=== PATIENT | female | born 1985 | race Caucasian/White ===

== ENCOUNTER 2018-12-04 19:53 | Inpatient (IN) | payer SELFPAY ==
[2018-12-04] MEDS ORDERED: Ondansetron INJ* 2 MG/ML VIAL IV PRN (20:22)
[2018-12-04] MEDS ORDERED: Morphine INJ* 2 MG/ML 1 ML SYRINGE (TWO MG - NEW SYRINGE VERSION) IV PRN (20:22)
[2018-12-04] MEDS ORDERED: diPHENhydraMINE IV* 50 MG/ML 1 ml VIAL (BENADRYL) IV ONE (22:00)
[2018-12-04] MEDS ORDERED: LORazepam INJ* 2 MG/ML 1 ML VIAL IV PUSH PRN (22:10)
[2018-12-04] MEDS ORDERED: Lorazepam PYXIS KEY PRN (22:10)
[2018-12-04 22:37] LABS: ABS Basophils 0.1 10^3/ul (0-0.2); ABS Lymphocytes 2.5 10^3/ul (1.0-4.8); ABS Monocytes 0.9 10^3/ul (0-0.8); Eosinophil % 0.2 %; Hematocrit 37 % (35-47); Hemoglobin 12.5 g/dL (12.0-16.0); Lymphocyte % 21.4 %; Mean Corpuscular HGB Conc 34 g/dL (31-36); Mean Corpuscular Hemoglobin 31 pg (27-31); Mean Corpuscular Volume 91 fL (80-97); Mean Platelet Volume 8.2 fL (7.4-10.4); Platelet Count 279 10^3/uL (150-450); Red Blood Count 4.08 10^6 /uL (3.70-4.87); Red Cell Distribution Width 13 % (10-15); White Blood Count 11.5 10^3/uL (3.5-10.8)
[2018-12-04 22:53] LABS: Albumin 4.3 g/dL (3.2-5.2); Albumin/Globulin Ratio 1.8 (1-3); BUN/Creatinine Ratio 11.1 (8-20); EGFR African American 133.4 (>60); EGFR Non-African American 110.2 (>60); Globulin 2.4 g/dL (2-4); Magnesium 1.7 mg/dL (1.9-2.7); Potassium 3.2 mmol/L (3.5-5.0); Total Bilirubin 1.1 mg/dL (0.2-1.0); Total Protein 6.7 g/dL (6.4-8.9)
[2018-12-04] MEDS: D5W 1/2 NS KCl 20 Meq 1000 ML* 1,000 ML IV SCH (23:02)
[2018-12-04] MEDS: PROMETHAZINE 25 MG PR PRN (23:02)
[2018-12-04 23:36] LABS: TSH (Thyroid Stimulating Horm) 0.94 mcIU/mL (0.34-5.60)
--- NOTE | 2018-12-05 01:21 | HP ---
HISTORY AND PHYSICAL: DATE OF ADMISSION: 12/04/18 PROVIDER: Carol Can NP PRIMARY CARE PROVIDER: None (The patient recently moved here from [place] yesterday). ATTENDING PHYSICIAN WHILE IN THE HOSPITAL: Dr. Temi Theodore* (dictated by Carol Can NP). CHIEF COMPLAINT: Abdominal pain and vomiting. HISTORY OF PRESENT ILLNESS: Ms. Eisenberg is a 33-year-old female with a past medical history significant for Sergio-Danlos, chronic fatigue, chronic pain syndrome, SMA, gastroparesis, endometriosis, pots syndrome, nonepileptic seizures, bradycardia, and history of pulmonary embolism, who initially presented to [facility] with complaints of vomiting. She reports that approximately 10 days ago she started having vomiting, proceeds to report that the patient travels up here from [place], [place]. The reports that they stopped in [place] and had some food, which both had some gastrointestinal illness. The does report that he recovered, but the patient was unable to recover and reports that she was vomiting every half hour while driving here to [place]. She reports that on 12/01/18 she was admitted to a hospital in [place], [place] from 12/01/18 to 12/03/18 with complaints of vomiting. She reports that she was discharged with viral gastroenteritis. At that time, there was concern of colitis. The patient and reported the patient did receive antibiotics while in the hospital. The patient reports that she was able to tolerate clear liquids, but never tried any solid foods and she was discharged on 12/03/18. They continued to travel. They traveled up to [place]. The patient started with vomiting last night. She did attempt to eat some solid foods, but was unable to tolerate it. So, she presented to [place] ER for further evaluation. While at [place], they did lab work. She was found to have hypokalemia and dehydration and concern for a partial bowel obstruction. So, [facility] was contacted for a transfer. They did speak to Dr. Painting who stated he would see the patient in consultation if the patient was accepted for admission here at [facility]. The patient does report fevers on and off. She does report nausea, vomiting and abdominal pain. Denies any blood in the vomit. Denies any black or tarry stools. She denies any chest pain or shortness of breath. She denies any urinary frequency, urgency or pain with urination. She denies any dizziness or lightheadedness. Due to the patient's vomiting and possible bowel obstruction, Hospital Medicine was asked to see in consult for admission. While at [facility], the patient did have an NG tube placed with multiple repeat x-rays showing coiling of the NG tube. Ultimately, the NG tube is removed. The patient is refusing to have further NG tube placement. PAST MEDICAL HISTORY: Significant for: 1. Sergio-Danlos. 2. Chronic fatigue. 3. Chronic pain. 4. SMA. 5. Gastroparesis. 6. Endometriosis. 7. POTS syndrome. 8. History of PE. 9. Nonepileptic seizures. 10. Bradycardia. PAST SURGICAL HISTORY: 1. Right shoulder repair due to dislocation, right hip repair, right knee, right foot. 2. Hysterectomy. 3. Cholecystectomy. 4. Appendectomy. 5. Stomach surgery. 6. Duodenojejunostomy for SMA. 7. Pacemaker in December 2017 due to bradycardia from POTS syndrome. 8. Mediport placement. HOME MEDICATIONS: 1. Tizanidine 8 mg p.o. t.i.d. 2. Promethazine 12.5 mg p.o. q.6 hours as needed for nausea. 3. Montelukast 1 tab p.o. at bedtime. 4. Hydroxyzine 25 mg p.o. 4 times a day. 5. Gabapentin 900 mg p.o. t.i.d. 6. Dextroamphetamine sulfate ER 20 mg p.o. t.i.d. 7. Klonopin 1 mg p.o. 4 times a day. 8. Albuterol/acetaminophen 25/325 1 to 2 tablets every 4 hours as needed for headache. ALLERGIES: 1. AMOXICILLIN. 2. CEFTRIAXONE. 3. CIPROFLOXACIN. 4. EGGS. 5. LEVOTHYROXINE. 6. REGLAN. 7. PENICILLIN. 8. PREDNISONE. FAMILY HISTORY: No reported history of coronary artery disease, diabetes or cancer. SOCIAL HISTORY: Denies any smoking, illicit drug use or alcohol use. She is . She lives with her . Surrogate decision maker in the event she is unable to make her own decisions is her Erick. She is a full code. REVIEW OF SYSTEMS: An 11-point review of systems was completed. All pertinent positives were mentioned in the HPI, otherwise were negative. PHYSICAL EXAMINATION GENERAL: At this time, Ms. Eisenberg is alert and oriented resting in bed in her room. She does not appear to be in any acute distress. VITAL SIGNS: Temp 100.0, Blood pressure 144/97, Heart rate 85, Respirations 20. o2 saturation 100. HEENT: Head is atraumatic, normocephalic. Eyes: EOMs are intact. Pupils are 5 mm and reactive to light. Oral mucosa is dry. NECK: Supple. LUNGS: Clear to auscultation bilaterally. No wheezes, rales, or rhonchi. CARDIAC: S1, S2. Regular rate and rhythm. No murmurs, rubs, or gallops. ABDOMEN: Soft, flat. She does have diffuse tenderness noted to the entire abdomen. Bowel sounds are present x4 and active. EXTREMITIES: Pedal pulses are +2 bilaterally. She is able to move all 4 extremities with 5/5 strength. There is no clubbing or cyanosis. NEUROLOGIC: She is awake, alert, oriented x3. Speech is clear. Thought process is intact. There is no gross focal deficit. SKIN: Intact. DIAGNOSTIC STUDIES/LAB DATA: Pending. She did have a CT at [place] that showed partial obstruction. We are in the process of getting full dictated report from [place] at this time. ASSESSMENT AND PLAN: Ms. Eisenberg is a 33-year-old female with past medical history significant for Sergio-Danlos, chronic fatigue, chronic pain, SMA, gastroparesis, endometriosis, POTS syndrome, nonepileptic seizures, bradycardia , history of pulmonary embolism, who initially presented to [facility] with complaints of vomiting and abdominal pain. She was found to have bowel obstruction, so she was transferred to [facility] for evaluation by Surgery. She will be admitted inpatient for: 1. Nausea and vomiting. I suspect her nausea and vomiting as related to underlying partial bowel obstruction. She did have an NG placed at [place] with multiple attempts for correct placement, which was unsuccessful and NG was removed. The patient is refusing further NG tube placement at this time. She will be seen in consultation by Surgery. Dr. Painting was contacted by [facility] and accepted consultation. She will be n.p.o., I will place her on IV fluids, and we will monitor overnight. The patient can have Phenergan 12.5 mg suppository q.6 hours as needed for nausea or vomiting as she reports this works better for her and that Zofran does not work for her. 2. History of nonepileptic seizures. The patient does take Klonopin at home. Given the patients n.p.o. status, I will place her on Ativan 0.5 mg IV q.6 hours as needed. 3. Chronic pain syndrome. The patient currently takes tizanidine and gabapentin. I am going to hold this due to her n.p.o. status at this time. We will give her morphine 2 mg every 4 hours as needed for pain. 4. History of bradycardia. The patient does have a pacemaker and continue to monitor. 5. FEN. She is n.p.o. 6. DVT prophylaxis. I will place her on SCDs. 7. Code status. She is a full code. TIME SPENT: Time spent on this admission was approximately 60 minutes, greater than half that time was spent at the bedside reviewing events leading thus far to her hospitalization, performing physical exam, and reviewing my plan of care. I have discussed this with my attending Dr. Temi Theodore; she is in agreement with my plan. CAROL CAN, DIONISIO [id number]/[facility] #: [id number] DANNIE
[2018-12-05] MEDS: Morphine 4 MG/ML VIAL (1 ml) 4 MG/ML VIAL IV PRN ×4 (03:14→19:40)
[2018-12-05] MEDS: D5W 1/2 NS KCl 20 Meq 1000 ML* 1,000 ML IV SCH ×2 (07:37→17:41)
[2018-12-05] MEDS ORDERED: diPHENhydraMINE IV* 50 MG/ML 1 ml VIAL (BENADRYL) IV ONE (09:23)
--- NOTE | 2018-12-05 12:37 | CONS ---
CONSULTATION REPORT: DATE OF CONSULT: 12/05/18 REFERRING PROVIDER: Dr. Temi Theodore, hospitalist.. REASON FOR CONSULTATION: Nausea, vomiting and abdominal pain. HISTORY OF PRESENT ILLNESS: Ms. Luda Eisenberg is a 33-year-old female with a complicated past medical history, who until about 2 weeks ago lived in the [place], [place] area. She is moving to [place] for family reasons. She has surgical history significant for superior mesenteric artery compression syndrome and according to her, she underwent a laparoscopic duodenal jejunostomy at [facility] 2 years ago for treatment of this issue. She had done well until about 2 weeks ago and she feels that she became ill with some nausea and dry heaves with occasional vomiting. She has had no diarrhea. She has chronic pain syndrome, but does not necessarily have abdominal discomfort that she has been having over the past several weeks. She said she has had some unintentional weight loss since October. She has had no blood per rectum or melena. While driving up from [place], she did apparently stop and was admitted in a hospital in [place], [place] for several days and told that she may have had a colitis, but was discharged and presented to [facility] yesterday with the above complaints. A CT scan was done in [place]. I did review these images. This was done without IV contrast due to IV contrast allergy. Oral contrast apparently was administered and there was only a small amount noted in the stomach. This study showed a dilated stomach and proximal duodenum with dilation of the apparent previous duodenojejunostomy anastomosis with some mild dilation in the proximal small bowel. There was significant amount of air beyond this area. There is no obvious evidence of small bowel obstruction. There is a large amount of stool throughout the colon and there is quite a bit of air as well throughout the colon. There is no free intraabdominal fluid. It is a difficult study to read due to the fact that there is no oral or IV contrast and she is quite slender. She was transferred to the emergency room here at [facility] for further care. She had been admitted to Medical Service and started on IV fluids and kept n.p.o. at this point. Past medical history is also significant for gastroparesis, endometriosis, Sergio- Danlos syndrome, chronic fatigue and chronic pain syndrome. She also has had a pacemaker placed for POTS syndrome. She describes nonepileptic seizures and a history of pulmonary embolism as well. PAST MEDICAL HISTORY: 1. Sergio-Danlos. 2. Chronic fatigue and chronic pain syndrome. 3. SMA compression syndrome, treated as above. 4. Gastroparesis. 5. Endometriosis. 6. POTS syndrome. 7. History of pulmonary embolism. 8. Nonepileptic seizures. 9. Bradycardia. PAST SURGICAL HISTORY: 1. Right shoulder surgery. 2. Hysterectomy. 3. Laparoscopic cholecystectomy. 4. Laparoscopic appendectomy. 5. Laparoscopic duodenojejunostomy for SMA compression syndrome. 6. Pacemaker insertion. 7. Mediport placement, presently in place. MEDICATIONS: Include: 1. Tizanidine. 2. Promethazine. 3. Montelukast. 4. Hydroxyzine. 5. Gabapentin. 6. Dextroamphetamine. 7. Klonopin. 8. Albuterol. ALLERGIES: 1. AMOXICILLIN. 2. CEFTRIAXONE. 3. CIPRO. 4. EGGS. 5. LEVOTHYROXINE. 6. REGLAN. 7. PENICILLIN. 8. PREDNISONE. SOCIAL HISTORY: She denies any smoking, illicit drug use or alcohol. She is . She lives with her . She is presently not working, is applying for disability. Her is her surrogate decision maker. She is a full code. REVIEW OF SYSTEMS: A 11-point review of systems was complete. All pertinent positives were mentioned in the above HPI, otherwise negative. PHYSICAL EXAM: Temperature 98.2, pulse 81, blood pressure 156/94. In general, she is a slender female, appears to be in no apparent distress. She is quite alert, conversive and very pleasant. Her lungs are clear to auscultation with normal respiratory effort. Heart has regular rate and rhythm without murmurs, rubs, or gallops. Her abdomen is soft and nondistended. She has normoactive bowel sounds throughout. She has some mild tenderness throughout with no rebound, guarding, rigidity or peritoneal irritation. I appreciate no hernias. Psychiatric: She is awake, alert and oriented x3. She has normal judgment and insight. DIAGNOSTIC STUDIES/LAB DATA: Laboratory workup included white blood cell count this morning of 11.5. Electrolytes and BUN and creatinine were unremarkable other than a potassium of 3.2. She has a total bilirubin of 1.1, but liver transaminases were unremarkable. She has an albumin level of 4.3. IMPRESSION: Abdominal pain with nausea and vomiting in a complicated patient who has had multiple intraabdominal surgeries including a laparoscopic duodenal jejunostomy at [facility] several years ago for superior mesenteric artery compression syndrome. She says that since that time, she has been doing well over the past several weeks, has had vomiting, which may have been due to the gastroparesis. On the CT scan, I see no evidence of a small bowel obstruction, other acute findings, although she does have a dilated stomach. It is a study difficult to evaluate due to the lack of IV and oral contrast, however. I agree at present with the admission for IV hydration and correction of her potassium and electrolytes. She has been n.p.o. for now. I would recommend a Gastroenterology consult for further evaluation of her gastroparesis. An upper GI may be warranted if this could be performed this weekend to evaluate her gastric emptying as well as the patency of the duodenojejunostomy and address any further distal obstruction in the small bowel ; however, I do not feel she has a bowel obstruction or other acute surgical condition. There are no surgical interventions indicated at this point, and I will follow her closely and discuss her care with the primary service. [id number]/[facility] #: [id number] DANNIE
[2018-12-05] MEDS ORDERED: Magnesium Sulfate 2 GM IV* 2 GM/50 ML BAG IVPB ONE (14:50)
[2018-12-05] MEDS: Ondansetron INJ* 2 MG/ML VIAL IV PRN (15:17)
--- NOTE | 2018-12-05 18:20 | PN ---
Subjective Date of Service: 12/05/18 Interval History: Resting in bed on assessment. Reports mild improvement in symptoms as she is able to tolerate clear liquids. Objective Active Medications: Potassium Chloride/Dextrose (D5w 1/2 Ns Kcl 20 Meq 1000 Ml*) 1,000 mls @ 125 mls/hr IV PER RATE ALYSHA Last Admin: 12/05/18 17:41 Dose: 125 mls/hr Lorazepam (Ativan Inj*) 0.5 mg IV PUSH Q6H PRN PRN Reason: ANXIETY Miscellaneous (Ativan Pyxis [place]) 1 ea N/A .ATIVAN IV BEAVERS PRN PRN Reason: PYXIS BEAVERS Morphine Sulfate (Morphine 4 Mg/Ml Vial (1 Ml)) 4 mg IV Q4H PRN PRN Reason: Pain - Moderate to Severe Last Admin: 12/05/18 15:17 Dose: 4 mg Ondansetron HCl (Zofran Inj*) 4 mg IV Q6H PRN PRN Reason: NAUSEA Last Admin: 12/05/18 15:17 Dose: 4 mg Promethazine HCl (Phenergan Supp*) 12.5 mg MT Q6H PRN PRN Reason: NAUSEA/VOMITING Last Admin: 12/04/18 23:02 Dose: 12.5 mg Vital Signs - 8 hr 12/05/18 12/05/18 12/05/18 10:42 10:58 11:06 Temperature Pulse Rate Respiratory 18 18 18 Rate Blood Pressure (mmHg) O2 Sat by Pulse Oximetry 12/05/18 12/05/18 12/05/18 11:09 11:30 12:00 Temperature Pulse Rate 80 Respiratory 16 16 Rate Blood Pressure 149/111 132/100 (mmHg) O2 Sat by Pulse 98 Oximetry 12/05/18 12/05/18 12/05/18 12:22 15:17 15:27 Temperature 99 F Pulse Rate 80 Respiratory 18 16 16 Rate Blood Pressure 150/104 (mmHg) O2 Sat by Pulse 100 Oximetry 12/05/18 12/05/18 16:36 16:59 Temperature Pulse Rate 86 Respiratory 18 Rate Blood Pressure 143/104 (mmHg) O2 Sat by Pulse Oximetry Oxygen Devices in Use Now: None Appearance: Comfortable, NAD Eyes: No Scleral Icterus Ears/Nose/Mouth/Throat: Clear Oropharnyx, Mucous Membranes Moist Neck: NL Appearance and Movements; NL JVP Respiratory: Symmetrical Chest Expansion and Respiratory Effort, Clear to Auscultation Cardiovascular: NL Sounds; No Murmurs; No JVD, RRR, No Edema Abdominal: - - Soft. BS+. Diffuse tenderness. No rebound tenderness or rigidity Extremities: No Edema Skin: No Rash or Ulcers Neurological: Alert and Oriented x 3 Nutrition: Taking PO's - Nutrition: Malnutrition Diagnosis/Plan Malnutrition Assessment by Registered Dietitian: Malnutrition Assessment Clinical Characteristics Acute,Severe Malnutrition Assessment: severe wt loss: 14.6% x 1 mo Criteria < or = 50% of EEE x > or = 5 days Malnutrition Assessment: advance diet per provider Interventions Pt amenable to oral nutrition supplement when diet advanced Malnutrition Assessment: Goals 1. Pt will tolerate diet advancement without GI distress 2. Pt will establish regular bowel pattern as suspected obstruction resolves 3. K+ will normalize with repletion Result Diagrams: 12/04/18 22:25 12/04/18 22:25 Additional Lab and Data: Laboratory Results - last 24 hr 12/04/18 12/04/18 22:25 22:25 WBC 11.5 H RBC 4.08 Hgb 12.5 Hct 37 MCV 91 MCH 31 MCHC 34 RDW 13 Plt Count 279 MPV 8.2 Neut % (Auto) 69.6 Lymph % (Auto) 21.4 [place] % (Auto) 8.2 Eos % (Auto) 0.2 Baso % (Auto) 0.6 Absolute Neuts (auto) 8.0 H Absolute Lymphs (auto) 2.5 Absolute Monos (auto) 0.9 H Absolute Eos (auto) 0.0 Absolute Basos (auto) 0.1 Absolute Nucleated RBC 0.0 Nucleated RBC % 0.0 Sodium 139 Potassium 3.2 L Chloride 106 Carbon Dioxide 24 Anion Gap 9 BUN 7 Creatinine 0.63 Est GFR ( Amer) 133.4 Est GFR (Non-Af Amer) 110.2 BUN/Creatinine Ratio 11.1 Glucose 86 Calcium 9.0 Magnesium 1.7 L Total Bilirubin 1.10 H AST 42 H ALT 43 Alkaline Phosphatase 83 Total Protein 6.7 Albumin 4.3 Globulin 2.4 Albumin/Globulin Ratio 1.8 TSH 0.94 Microbiology and Other Data: . Assess/Plan/Problems-Billing Assessment: 33 yr old female with pmh of Sergio-Danlos, chronic fatigue, chronic pain, SMA, gastroparesis, endometriosis, POTS, Hx of PE, seizures, bradycardia; who presented with c/o of vomiting and abd pain x 2 weeks - Patient Problems (1) Nausea & vomiting Comment: - Surgery consulting and read CT from [place]. Reports no evidence of SBO and recommends GI consult given patient's significant hx - Tolerating clears - Cont PRN nasuea medications - GI consult requested (2) Seizures Comment: - Cont seizure precautions - Resume home medications (3) Chronic pain Comment: - Resume Gabapentin (4) Bradycardia Comment: - Hx of - VSS - Not currently on tele (5) DVT prophylaxis Comment: - SCDs and ambulation
[2018-12-05] MEDS ORDERED: D5W 1/2 NS KCl 20 Meq 1000 ML* 1,000 ML IV SCH (18:27)
[2018-12-05] MEDS: Gabapentin CAP(*) 300 MG PO SCH (20:43)
[2018-12-05] MEDS: hydrOXYzine HCL TAB* 25 MG PO SCH (20:44)
[2018-12-05] MEDS: clonazePAM TAB(*) 1 MG PO SCH (20:44)
[2018-12-05] MEDS ORDERED: tiZANidine TAB* 2 MG PO PRN (20:52)
[2018-12-06] MEDS: Morphine 4 MG/ML VIAL (1 ml) 4 MG/ML VIAL IV PRN ×5 (02:02→20:12)
[2018-12-06] MEDS: Ondansetron INJ* 2 MG/ML VIAL IV PRN ×4 (02:02→20:11)
[2018-12-06 07:38] LABS: ABS Basophils 0.1 10^3/ul (0-0.2); ABS Eosinophils 0.4 10^3/ul (0-0.6); ABS Lymphocytes 2.7 10^3/ul (1.0-4.8); ABS Monocytes 1.2 10^3/ul (0-0.8); ABS Neutrophils 8.8 10^3/ul (1.5-7.7); Eosinophil % 3.1 %; Hematocrit 43 % (35-47); Hemoglobin 14.4 g/dL (12.0-16.0); Lymphocyte % 20.4 %; Mean Corpuscular HGB Conc 33 g/dL (31-36); Mean Corpuscular Hemoglobin 31 pg (27-31); Mean Corpuscular Volume 93 fL (80-97); Mean Platelet Volume 9.1 fL (7.4-10.4); Platelet Count 350 10^3/uL (150-450); Red Blood Count 4.67 10^6 /uL (3.70-4.87); Red Cell Distribution Width 13 % (10-15); White Blood Count 13.2 10^3/uL (3.5-10.8)
[2018-12-06 07:51] LABS: Albumin 4.6 g/dL (3.2-5.2); Albumin/Globulin Ratio 1.7 (1-3); BUN/Creatinine Ratio 6.6 (8-20); Calcium 9.4 mg/dL (8.6-10.3); EGFR African American 138.4 (>60); EGFR Non-African American 114.4 (>60); Globulin 2.7 g/dL (2-4); Potassium 3.6 mmol/L (3.5-5.0); Total Bilirubin 1.5 mg/dL (0.2-1.0); Total Protein 7.3 g/dL (6.4-8.9)
[2018-12-06] MEDS ORDERED: NS 0.9% 1000 ML** 1,000 ML IV SCH (09:15)
[2018-12-06] MEDS: clonazePAM TAB(*) 1 MG PO SCH ×4 (09:19→20:10)
[2018-12-06] MEDS: hydrOXYzine HCL TAB* 25 MG PO SCH ×4 (09:19→20:10)
[2018-12-06] MEDS: Gabapentin CAP(*) 300 MG PO SCH ×3 (09:20→20:11)
--- NOTE | 2018-12-06 10:56 | PN ---
Progress Note - Progress Note Date of Service: 12/06/18 SOAP: Subjective: Tolerated some clear liquids yesterday but today "feels worse" No vomiting Passing flatus, no BM Objective: Temp Pulse Resp BP Pulse Ox 98.5 F 117 18 126/102 96 12/06/18 09:00 12/06/18 09:00 12/06/18 09:20 12/06/18 09:00 12/06/18 09:00 PEX: Abd is soft and non-distended. Normal bowel sounds throughout. Mild generalized tenderness, no guarding, mass or rebound tenderness. Laboratory Results - last 24 hr 12/06/18 12/06/18 06:40 06:40 WBC 13.2 H RBC 4.67 Hgb 14.4 Hct 43 MCV 93 MCH 31 MCHC 33 RDW 13 Plt Count 350 MPV 9.1 Neut % (Auto) 67.0 Lymph % (Auto) 20.4 [place] % (Auto) 9.1 Eos % (Auto) 3.1 Baso % (Auto) 0.4 Absolute Neuts (auto) 8.8 H Absolute Lymphs (auto) 2.7 Absolute Monos (auto) 1.2 H Absolute Eos (auto) 0.4 Absolute Basos (auto) 0.1 Absolute Nucleated RBC 0.0 Nucleated RBC % 0.0 Sodium 136 Potassium 3.6 Chloride 100 L Carbon Dioxide 25 Anion Gap 11 BUN 4 L Creatinine 0.61 Est GFR ( Amer) 138.4 Est GFR (Non-Af Amer) 114.4 BUN/Creatinine Ratio 6.6 L Glucose 121 H Calcium 9.4 Magnesium 2.0 Total Bilirubin 1.50 H AST 152 H ALT 105 H Alkaline Phosphatase 153 H Total Protein 7.3 Albumin 4.6 Globulin 2.7 Albumin/Globulin Ratio 1.7 Assessment: Abdominal pain-nausea--persistent Raising LFT's--? etiology. She is s/p cholecystectomy WBC up slightly Plan: UGI today-possible EGD-appreciate GI consult US RUQ
--- NOTE | 2018-12-06 12:18 | CONS ---
CONSULTATION REPORT: DATE OF CONSULT: 12/06/18 REQUESTING PROVIDER: Carol Can NP PRIMARY CARE PROVIDER: No primary care provider as the patient just moved to the area. INDICATION FOR CONSULTATION: Abdominal pain, nausea, and vomiting. NARRATIVE: Ms. Eisenberg is a 33-year-old female who has a history of SMA syndrome status post surgery, gastroparesis, endometriosis, POTS syndrome, Sergio-Danlos syndrome, fatigue, chronic pain, history of PE, epilepsy, who had just moved to [place], [place] for family reasons. The patient presented to the hospital there after being in a hospital down in [place]. She has been having 2 to 3 weeks of nausea and vomiting. She describes the vomitus as bilious, nonbloody. She has a bloody vomiting in the past but nothing recently. She tells me this does not feel like her gastroparesis. She states that this feels like when she had peptic ulcer disease. She had been in the hospital at that time and she began to vomit blood. They did perform an EGD and found ulcers proximal to her anastomosis. She denies any fevers or chills. Denies any NSAIDs. Denies vomiting blood or passing blood in her stool. She is passing gas. She did have a CT at [facility], which per their report showed small bowel obstruction. She was transferred to [facility] because [facility] does not have any lead investigator. At this point, she states her vomiting has improved; however, she remained nauseated. She is keeping down liquids at this point. PAST MEDICAL HISTORY: Sergio-Danlos, POTS syndrome, PE, bradycardia, seizures due to epilepsy, endometriosis, gastroparesis, SMA syndrome. PAST SURGICAL HISTORY: Includes pacemaker last year due to bradycardia from her POTS syndrome, SMA surgery including a jejunostomy, appendectomy, cholecystectomy, hysterectomy, shoulder repair. MEDICATIONS: At home include: 1. Klonopin. 2. Adderall. 3. Gabapentin. 4. Hydroxyzine. 5. Promethazine. 6. Tizanidine. ALLERGIES: To PREDNISONE, PENICILLIN, REGLAN, LEVOTHYROXINE, CIPRO, CEFTRIAXONE , AMOXICILLIN. FAMILY HISTORY: No GI issues in the family. SOCIAL HISTORY: Denies any tobacco, alcohol, or IV drugs. REVIEW OF SYSTEMS: Twelve systems were reviewed, other than mentioned in the HPI were unremarkable. PHYSICAL EXAM: Temperature is 98.2, blood pressure is 139/98, pulse is 98, respiratory rate of 20, O2 sat is 100% on room air. General: Well-appearing female, lying flat in bed, alert, oriented, pleasant, fluent. HEENT: Mucous membranes are moist without lesions, ulcers, or exudate. Neck is supple. Trachea is midline. Head is normocephalic, atraumatic. Heart: Regular rate and rhythm. No murmurs, rubs, or gallops. Lungs: Clear to auscultation bilaterally. No wheezes, rales, or rhonchi. Abdomen: Positive bowel sounds, soft, tender throughout. No rebound, no guarding. No masses were felt. Skin is warm and dry. DIAGNOSTIC STUDIES/LAB DATA: Of note, white count of 13.2, hemoglobin is normal , platelets of 350. Chemistries show a BUN of 4, creatinine of 0.61. Total bilirubin is 1.5, AST is 152, ALT is 105, alk phos is 153. ASSESSMENT AND PLAN: This is a pleasant 33-year-old female with nausea, vomiting, and a very significant past medical history with postural orthostatic tachycardia syndrome, superior mesenteric artery syndrome, multiple abdominal surgeries. She has already seen Dr. Painting from a surgical services. He does not feel that she has a small bowel obstruction. Other possibilities for her symptoms will include her gastroparesis; however, the patient does not think that that is recurring. She could have peptic ulcer disease. Of note, her LFTs have increased from last night to this morning. In looking at her medications, I do not see any right now that would be a culprit. I would recommend we repeat the LFTs. Additionally, she will likely benefit from an upper endoscopy at some point, this can be performed early next week. She should probably also have an upper GI series just to further define her anatomy. I do not think we need to perform a gastric emptying test at this point. We will continue with fluids and follow along very closely. [id number]/[facility] #: [id number] [facility]
--- NOTE | 2018-12-06 14:47 | PN ---
Subjective Date of Service: 12/06/18 Interval History: Patient retaining >900 mls of urine today on bladder scan. Order given for straight cath and reassess with bladder scan if patient does not void. If she voids than obtain post void bladder scan. Patient assessed this afternoon at bedside. Reports she feels about the same today as yesterday. Continues to have nausea, but denies vomiting. Reports she is passing flatus, but has had no BM. Denies fever, chills, burning with urination, vomiting, sob, cp. Objective Active Medications: Clonazepam (Klonopin Tab(*)) 1 mg PO QID [facility] Last Admin: 12/06/18 12:19 Dose: 1 mg Gabapentin (Neurontin Cap(*)) 900 mg PO TID [facility] Last Admin: 12/06/18 13:03 Dose: 900 mg Hydroxyzine HCl (Atarax Tab*) 25 mg PO QID [facility] Last Admin: 12/06/18 12:19 Dose: 25 mg Sodium Chloride (Ns 0.9% 1000 Ml) 1,000 mls @ 75 mls/hr IV PER RATE [facility] Morphine Sulfate (Morphine 4 Mg/Ml Vial (1 Ml)) 4 mg IV Q4H PRN PRN Reason: Pain - Moderate to Severe Last Admin: 12/06/18 11:14 Dose: 4 mg Non-Formulary Medication (Dextroamphetamine Sulfate Er) 1 tab PO TID [facility] Non-Formulary Medication (Tizanidine Tab*) 2 tab PO TID PRN PRN Reason: NAUSEA Ondansetron HCl (Zofran Inj*) 4 mg IV Q6H PRN PRN Reason: NAUSEA Last Admin: 12/06/18 09:20 Dose: 4 mg Promethazine HCl (Phenergan Supp*) 12.5 mg SD Q6H PRN PRN Reason: NAUSEA/VOMITING Last Admin: 12/04/18 23:02 Dose: 12.5 mg Vital Signs - 8 hr 12/06/18 12/06/18 12/06/18 06:51 08:00 09:00 Temperature 98.5 F Pulse Rate 117 Respiratory 18 18 23 Rate Blood Pressure 126/102 (mmHg) O2 Sat by Pulse 96 Oximetry 12/06/18 12/06/18 12/06/18 09:11 09:19 09:20 Temperature Pulse Rate Respiratory 18 16 18 Rate Blood Pressure (mmHg) O2 Sat by Pulse Oximetry 12/06/18 12/06/18 12/06/18 11:14 11:19 12:19 Temperature Pulse Rate Respiratory 18 16 18 Rate Blood Pressure (mmHg) O2 Sat by Pulse Oximetry 12/06/18 12/06/18 12/06/18 12:30 13:03 14:29 Temperature Pulse Rate Respiratory 18 16 18 Rate Blood Pressure (mmHg) O2 Sat by Pulse Oximetry Oxygen Devices in Use Now: None Appearance: Comfortable, NAD Eyes: No Scleral Icterus Ears/Nose/Mouth/Throat: Clear Oropharnyx, Mucous Membranes Moist Neck: NL Appearance and Movements; NL JVP Respiratory: Symmetrical Chest Expansion and Respiratory Effort, Clear to Auscultation Cardiovascular: NL Sounds; No Murmurs; No JVD, RRR, No Edema Abdominal: - - Soft. Generalized tenderness. BS+. No rebound tenderness, distension or rigidity Extremities: No Edema Skin: No Rash or Ulcers Neurological: Alert and Oriented x 3, NL Muscle Strength and Tone Nutrition: Taking PO's - Nutrition: Malnutrition Diagnosis/Plan Malnutrition Assessment by Registered Dietitian: Malnutrition Assessment Clinical Characteristics Acute,Severe Malnutrition Assessment: severe wt loss: 14.6% x 1 mo Criteria < or = 50% of EEE x > or = 5 days Malnutrition Assessment: advance diet per provider Interventions Pt amenable to oral nutrition supplement when diet advanced Malnutrition Assessment: Goals 1. Pt will tolerate diet advancement without GI distress 2. Pt will establish regular bowel pattern as suspected obstruction resolves 3. K+ will normalize with repletion Result Diagrams: 12/06/18 06:40 12/06/18 06:40 Additional Lab and Data: Laboratory Results - last 24 hr 12/06/18 12/06/18 06:40 06:40 WBC 13.2 H RBC 4.67 Hgb 14.4 Hct 43 MCV 93 MCH 31 MCHC 33 RDW 13 Plt Count 350 MPV 9.1 Neut % (Auto) 67.0 Lymph % (Auto) 20.4 [place] % (Auto) 9.1 Eos % (Auto) 3.1 Baso % (Auto) 0.4 Absolute Neuts (auto) 8.8 H Absolute Lymphs (auto) 2.7 Absolute Monos (auto) 1.2 H Absolute Eos (auto) 0.4 Absolute Basos (auto) 0.1 Absolute Nucleated RBC 0.0 Nucleated RBC % 0.0 Sodium 136 Potassium 3.6 Chloride 100 L Carbon Dioxide 25 Anion Gap 11 BUN 4 L Creatinine 0.61 Est GFR ( Amer) 138.4 Est GFR (Non-Af Amer) 114.4 BUN/Creatinine Ratio 6.6 L Glucose 121 H Calcium 9.4 Magnesium 2.0 Total Bilirubin 1.50 H AST 152 H ALT 105 H Alkaline Phosphatase 153 H Total Protein 7.3 Albumin 4.6 Globulin 2.7 Albumin/Globulin Ratio 1.7 Microbiology and Other Data: . Assess/Plan/Problems-Billing Assessment: 33 yr old female with pmh of Sergio-Danlos, chronic fatigue, chronic pain, SMA, gastroparesis, endometriosis, POTS, Hx of PE, seizures, bradycardia; who presented with c/o of vomiting and abd pain x 2 weeks - Patient Problems (1) Urinary retention Comment: - Nursing noted patient had not voided, therefore, bladder scan completed and revealed > 900. Patient straight cath'd. Order place to recheck if no void or post void depending. (2) Elevated liver function tests Comment: - Elevated Roverto, AST, ALT, Alk Phos today - S/P zhang - US of upper right qaud ordered - Boyfriend expressed concern as he has Hep C. Patient agreeable to Hep testing. (3) Nausea & vomiting Comment: - Nausea continues, but no vomiting. Tolerating clears. - Surgery consulting and read CT from [place]. Reports no evidence of SBO and recommends GI consult given patient's significant hx - Cont PRN nasuea medications - GI consulting and plan for upper gi and endoscopy - May need CT with oral contrast depending on other test findings. (4) Seizures Comment: - Cont seizure precautions - Resume home medications (5) Chronic pain Comment: - Resume Gabapentin (6) Bradycardia Comment: - Hx of - VSS - Not currently on tele (7) POTS (postural orthostatic tachycardia syndrome) Comment: - Hx of - Supportive care and IVF (8) DVT prophylaxis Comment: - SCDs and ambulation Status and Disposition: Inpatient. Attending: Loli Phelps
[2018-12-06 19:46] LABS: Urine Appearance Clear; Urine Bacteria Absent (Absent); Urine Bilirubin Negative (Negative); Urine Blood 1+ (Negative); Urine Color Yellow; Urine Glucose Negative (Negative); Urine Ketones Negative (Negative); Urine Nitrite Negative (Negative); Urine Protein Negative (Negative); Urine Red Blood Cell 1+(3-5/hpf) (Absent); Urine Specific Gravity 1.004 (1.010-1.030); Urine Squamous Epithelial Cell Present (Absent); Urine Urobilinogen Positive (Negative); Urine White Blood Cell Trace(0-5/hpf) (Absent)
[2018-12-07] MEDS: Morphine 4 MG/ML VIAL (1 ml) 4 MG/ML VIAL IV PRN ×6 (01:23→22:42)
[2018-12-07 04:08] LABS: ABS Basophils 0.1 10^3/ul (0-0.2); ABS Eosinophils 0.5 10^3/ul (0-0.6); ABS Lymphocytes 3.6 10^3/ul (1.0-4.8); ABS Monocytes 0.8 10^3/ul (0-0.8); ABS Neutrophils 3.7 10^3/ul (1.5-7.7); Eosinophil % 5.9 %; Hematocrit 39 % (35-47); Hemoglobin 13.2 g/dL (12.0-16.0); Lymphocyte % 41.4 %; Mean Corpuscular HGB Conc 34 g/dL (31-36); Mean Corpuscular Hemoglobin 31 pg (27-31); Mean Corpuscular Volume 92 fL (80-97); Mean Platelet Volume 8.4 fL (7.4-10.4); Nucleated Red Blood Cells % 0.1; Platelet Count 276 10^3/uL (150-450); Red Blood Count 4.26 10^6 /uL (3.70-4.87); Red Cell Distribution Width 13 % (10-15); White Blood Count 8.8 10^3/uL (3.5-10.8)
[2018-12-07 04:23] LABS: Albumin 3.9 g/dL (3.2-5.2); Albumin/Globulin Ratio 1.7 (1-3); BUN/Creatinine Ratio 7.8 (8-20); Calcium 8.5 mg/dL (8.6-10.3); EGFR Non-African American 108.2 (>60); Globulin 2.3 g/dL (2-4); Magnesium 1.7 mg/dL (1.9-2.7); Potassium 3.2 mmol/L (3.5-5.0); Total Bilirubin 1.5 mg/dL (0.2-1.0); Total Protein 6.2 g/dL (6.4-8.9)
[2018-12-07] MEDS: Ondansetron INJ* 2 MG/ML VIAL IV PRN ×3 (05:39→20:37)
[2018-12-07 05:46] LABS: Hepatitis B Surface Antigen Negative (Negative)
[2018-12-07 06:04] LABS: Hepatitis C Antibody Negative (Negative)
[2018-12-07] MEDS ORDERED: Magnesium Sulfate 2 GM IV* 2 GM/50 ML BAG IVPB ONE (08:20)
[2018-12-07] MEDS: Gabapentin CAP(*) 300 MG PO SCH ×3 (08:54→20:37)
[2018-12-07] MEDS: clonazePAM TAB(*) 1 MG PO SCH ×4 (08:55→20:37)
[2018-12-07] MEDS: hydrOXYzine HCL TAB* 25 MG PO SCH ×4 (08:59→20:36)
[2018-12-07] MEDS: KCL 20 MEQ/100 ML IVPREMIX* 20 MEQ/100 ML BAG IV SCH ×2 (09:01→12:29)
--- NOTE | 2018-12-07 09:50 | PN ---
Progress Note - Progress Note Date of Service: 12/07/18 SOAP: Subjective: Feels about the same today-tolerating some liquids with some mild nausea, no vomiting Mild generalized abdominal pain Objective: Temp Pulse Resp BP Pulse Ox 98.1 F 102 18 130/83 98 12/07/18 03:19 12/07/18 03:19 12/07/18 08:55 12/07/18 03:19 12/07/18 03:19 PEX:Comfortable Abd is soft and non-distended. Bowel sounds are present and are normoactive. Mild tenderness, no rigidity, guarding or peritoneal irritation Laboratory Results - last 24 hr 12/06/18 12/07/18 12/07/18 19:30 04:00 04:00 WBC 8.8 RBC 4.26 Hgb 13.2 Hct 39 MCV 92 MCH 31 MCHC 34 RDW 13 Plt Count 276 MPV 8.4 Neut % (Auto) 42.6 Lymph % (Auto) 41.4 [place] % (Auto) 9.3 Eos % (Auto) 5.9 Baso % (Auto) 0.8 Absolute Neuts (auto) 3.7 Absolute Lymphs (auto) 3.6 Absolute Monos (auto) 0.8 Absolute Eos (auto) 0.5 Absolute Basos (auto) 0.1 Absolute Nucleated RBC 0.0 Nucleated RBC % 0.1 Sodium 138 Potassium 3.2 L Chloride 103 Carbon Dioxide 30 Anion Gap 5 BUN 5 L Creatinine 0.64 Est GFR ( Amer) 131.0 Est GFR (Non-Af Amer) 108.2 BUN/Creatinine Ratio 7.8 L Glucose 103 H Calcium 8.5 L Magnesium 1.7 L Total Bilirubin 1.50 H AST 182 H ALT 195 H Alkaline Phosphatase 157 H Total Protein 6.2 L Albumin 3.9 Globulin 2.3 Albumin/Globulin Ratio 1.7 Urine Color Yellow Urine Appearance Clear Urine pH 7.0 Ur Specific [place] 1.004 L Urine Protein Negative Urine Ketones Negative Urine Blood 1+ A Urine Nitrate Negative Urine Bilirubin Negative Urine Urobilinogen Positive A Ur Leukocyte Esterase Negative Urine WBC (Auto) Trace(0-5/hpf) Urine RBC (Auto) 1+(3-5/hpf) A Ur Squamous Epith Cells Present A Urine Bacteria Absent Urine Glucose Negative Hepatitis A IgM Ab Hep Bs Antigen Hep B Core IgM Ab Hepatitis C Antibody Hepatitis C Ab Index 12/07/18 04:00 WBC RBC Hgb Hct MCV MCH MCHC RDW Plt Count MPV Neut % (Auto) Lymph % (Auto) [place] % (Auto) Eos % (Auto) Baso % (Auto) Absolute Neuts (auto) Absolute Lymphs (auto) Absolute Monos (auto) Absolute Eos (auto) Absolute Basos (auto) Absolute Nucleated RBC Nucleated RBC % Sodium Potassium Chloride Carbon Dioxide Anion Gap BUN Creatinine Est GFR ( Amer) Est GFR (Non-Af Amer) BUN/Creatinine Ratio Glucose Calcium Magnesium Total Bilirubin AST ALT Alkaline Phosphatase Total Protein Albumin Globulin Albumin/Globulin Ratio Urine Color Urine Appearance Urine pH Ur Specific [place] Urine Protein Urine Ketones Urine Blood Urine Nitrate Urine Bilirubin Urine Urobilinogen Ur Leukocyte Esterase Urine WBC (Auto) Urine RBC (Auto) Ur Squamous Epith Cells Urine Bacteria Urine Glucose Hepatitis A IgM Ab Negative Hep Bs Antigen Negative Hep B Core IgM Ab Nonreactive Hepatitis C Antibody Negative Hepatitis C Ab Index 0.46 Assessment: Abdominal pain, nausea-s/p duodeno-jejunostomy for SMA compression syndrome WBC now normal Mild LFT elevation-? etiology US liver unremarkable Plan: UGI and possible EGD tomorrow No surgical intervention indicated Will follow
--- NOTE | 2018-12-07 13:34 | PN ---
Subjective Date of Service: 12/07/18 Interval History: Reports abd pain is about the same as previously. Reports pain increase with PO intake. She reports it also increases and decreases without aggravating factors. Reports it will increase to about a "9" and decrease to about a "4". Continues to have nausea, but has not vomited. Last BM approx 2 days ago. Reports she does not feel constipation, she is passing flatus, and it is not uncommon for her to go several days and even a week without having a BM. Objective Active Medications: Clonazepam (Klonopin Tab(*)) 1 mg PO QID [facility] Last Admin: 12/07/18 12:29 Dose: 1 mg Gabapentin (Neurontin Cap(*)) 900 mg PO TID [facility] Last Admin: 12/07/18 08:54 Dose: 900 mg Hydroxyzine HCl (Atarax Tab*) 25 mg PO QID [facility] Last Admin: 12/07/18 12:29 Dose: 25 mg Sodium Chloride (Ns 0.9% 1000 Ml) 1,000 mls @ 75 mls/hr IV PER RATE [facility] Morphine Sulfate (Morphine 4 Mg/Ml Vial (1 Ml)) 4 mg IV Q4H PRN PRN Reason: Pain - Moderate to Severe Last Admin: 12/07/18 10:02 Dose: 4 mg Non-Formulary Medication (Dextroamphetamine Sulfate Er) 1 tab PO TID [facility] Non-Formulary Medication (Tizanidine Tab*) 2 tab PO TID PRN PRN Reason: NAUSEA Ondansetron HCl (Zofran Inj*) 4 mg IV Q6H PRN PRN Reason: NAUSEA Last Admin: 12/07/18 05:39 Dose: 4 mg Promethazine HCl (Phenergan Supp*) 12.5 mg ND Q6H PRN PRN Reason: NAUSEA/VOMITING Last Admin: 12/04/18 23:02 Dose: 12.5 mg Vital Signs - 8 hr 12/07/18 12/07/18 12/07/18 05:37 07:13 07:15 Temperature 98.2 F Pulse Rate 95 Respiratory 17 18 18 Rate Blood Pressure 120/92 (mmHg) O2 Sat by Pulse 94 Oximetry 12/07/18 12/07/18 12/07/18 08:00 08:54 08:55 Temperature Pulse Rate Respiratory 18 18 18 Rate Blood Pressure (mmHg) O2 Sat by Pulse Oximetry 12/07/18 12/07/18 12/07/18 10:02 11:15 11:58 Temperature 98.4 F Pulse Rate 85 Respiratory 18 22 18 Rate Blood Pressure 113/60 (mmHg) O2 Sat by Pulse 98 Oximetry 12/07/18 12/07/18 12/07/18 11:59 12:27 12:29 Temperature Pulse Rate Respiratory 18 18 18 Rate Blood Pressure (mmHg) O2 Sat by Pulse Oximetry Oxygen Devices in Use Now: None Appearance: Comfortable, NAD Eyes: No Scleral Icterus Ears/Nose/Mouth/Throat: Clear Oropharnyx, Mucous Membranes Moist Neck: NL Appearance and Movements; NL JVP Respiratory: Symmetrical Chest Expansion and Respiratory Effort, Clear to Auscultation Cardiovascular: NL Sounds; No Murmurs; No JVD, RRR, No Edema Abdominal: - - Soft. BS+. Tender throughout with increase tenderness to RUQ. Lymphatic: No Cervical Adenopathy Extremities: No Edema Skin: No Rash or Ulcers Neurological: Alert and Oriented x 3, NL Muscle Strength and Tone Nutrition: Taking PO's - Nutrition: Malnutrition Diagnosis/Plan Malnutrition Assessment by Registered Dietitian: Malnutrition Assessment Clinical Characteristics Acute,Severe Malnutrition Assessment: severe wt loss: 14.6% x 1 mo Criteria < or = 50% of EEE x > or = 5 days Malnutrition Assessment: advance diet per provider Interventions Pt amenable to oral nutrition supplement when diet advanced Malnutrition Assessment: Goals 1. Pt will tolerate diet advancement without GI distress 2. Pt will establish regular bowel pattern as suspected obstruction resolves 3. K+ will normalize with repletion Result Diagrams: 12/07/18 04:00 12/07/18 04:00 Additional Lab and Data: Laboratory Results - last 24 hr 12/06/18 12/07/18 12/07/18 19:30 04:00 04:00 WBC 8.8 RBC 4.26 Hgb 13.2 Hct 39 MCV 92 MCH 31 MCHC 34 RDW 13 Plt Count 276 MPV 8.4 Neut % (Auto) 42.6 Lymph % (Auto) 41.4 [place] % (Auto) 9.3 Eos % (Auto) 5.9 Baso % (Auto) 0.8 Absolute Neuts (auto) 3.7 Absolute Lymphs (auto) 3.6 Absolute Monos (auto) 0.8 Absolute Eos (auto) 0.5 Absolute Basos (auto) 0.1 Absolute Nucleated RBC 0.0 Nucleated RBC % 0.1 Sodium 138 Potassium 3.2 L Chloride 103 Carbon Dioxide 30 Anion Gap 5 BUN 5 L Creatinine 0.64 Est GFR ( Amer) 131.0 Est GFR (Non-Af Amer) 108.2 BUN/Creatinine Ratio 7.8 L Glucose 103 H Calcium 8.5 L Magnesium 1.7 L Total Bilirubin 1.50 H AST 182 H ALT 195 H Alkaline Phosphatase 157 H Total Protein 6.2 L Albumin 3.9 Globulin 2.3 Albumin/Globulin Ratio 1.7 Lipase 15 Urine Color Yellow Urine Appearance Clear Urine pH 7.0 Ur Specific [place] 1.004 L Urine Protein Negative Urine Ketones Negative Urine Blood 1+ A Urine Nitrate Negative Urine Bilirubin Negative Urine Urobilinogen Positive A Ur Leukocyte Esterase Negative Urine WBC (Auto) Trace(0-5/hpf) Urine RBC (Auto) 1+(3-5/hpf) A Ur Squamous Epith Cells Present A Urine Bacteria Absent Urine Glucose Negative Hepatitis A IgM Ab Hep Bs Antigen Hep B Core IgM Ab Hepatitis C Antibody Hepatitis C Ab Index 12/07/18 04:00 WBC RBC Hgb Hct MCV MCH MCHC RDW Plt Count MPV Neut % (Auto) Lymph % (Auto) [place] % (Auto) Eos % (Auto) Baso % (Auto) Absolute Neuts (auto) Absolute Lymphs (auto) Absolute Monos (auto) Absolute Eos (auto) Absolute Basos (auto) Absolute Nucleated RBC Nucleated RBC % Sodium Potassium Chloride Carbon Dioxide Anion Gap BUN Creatinine Est GFR ( Amer) Est GFR (Non-Af Amer) BUN/Creatinine Ratio Glucose Calcium Magnesium Total Bilirubin AST ALT Alkaline Phosphatase Total Protein Albumin Globulin Albumin/Globulin Ratio Lipase Urine Color Urine Appearance Urine pH Ur Specific [place] Urine Protein Urine Ketones Urine Blood Urine Nitrate Urine Bilirubin Urine Urobilinogen Ur Leukocyte Esterase Urine WBC (Auto) Urine RBC (Auto) Ur Squamous Epith Cells Urine Bacteria Urine Glucose Hepatitis A IgM Ab Negative Hep Bs Antigen Negative Hep B Core IgM Ab Nonreactive Hepatitis C Antibody Negative Hepatitis C Ab Index 0.46 Microbiology and Other Data: . Assess/Plan/Problems-Billing Assessment: 33 yr old female with pmh of Sergio-Danlos, chronic fatigue, chronic pain, SMA, gastroparesis, endometriosis, POTS, Hx of PE, seizures, bradycardia; who presented with c/o of vomiting and abd pain x 2 weeks - Patient Problems (1) Abdominal pain Comment: - No change in abd pain since admission - Reports aggrivating factors include PO intake - Reports pain will increase and decrease without aggrivating factors also - Reports pain is slightly worse in RUQ - Upper GI and Endoscopy tomorrow with GI. NPO after midnight (2) Urinary retention Comment: - Milligan currently in place due to retention. - Yesterday bladder scan completed and revealed > 900. Patient straight cath'd and later retained again. Discussed milligan versus another straight cath and patient opted for milligan - Secondary to medications, acute illness, POTS?? - She reported today that this is not new for her that she was having difficulty voiding when she was living in [place] and was very recently referred to a UroGyn for evaluation of possible neurogenic bladder, but did not have the evaluation completed prior to moving here (3) Elevated liver function tests Comment: - Continue elevation Roverto, AST, ALT, Alk Phos - S/P zhang - US of upper right qaud unremarkable - Boyfriend expressed concern as he has Hep C. Acute Hep Panel unremarkable - Maybe infectious? As she did have elevated wbc and slight fever on admission. Continue to follow LFTs (4) Nausea & vomiting Comment: - Nausea is unchanged - Tolerating clears. - Surgery consulting and read CT from [place]. Reports no evidence of SBO and recommends GI consult given patient's significant hx - Cont PRN nasuea medications - GI consulting and plan for upper gi and endoscopy - May need CT with oral contrast depending on other test findings. She reports if she needs CT with contrast she has been able to have constrast in the past with only premedication of Benadryl as she is allergic to Prednisone. She reports previously she was given Benadryl 50 mg IV prior to contrast and tolerated contrast well (5) Seizures Comment: - Cont seizure precautions - Resume home medications (6) Chronic pain Comment: - Resume Gabapentin (7) Bradycardia Comment: - Hx of - VSS - Not currently on tele (8) POTS (postural orthostatic tachycardia syndrome) Comment: - Hx of - Supportive care and IVF (9) DVT prophylaxis Comment: - SCDs and ambulation Status and Disposition: Inpatient. Attending: Loli Phelps
--- NOTE | 2018-12-07 14:06 | PN ---
Progress Note - Progress Note Date of Service: 12/07/18 Note: pt with continued sx, VSS will cancel UGI series for tomorrow, plan for EGD first; may opt for UGI after EGD Friday to r/o PUD; pt believes her sx to be the exact same as when she had ulcers Steven Keith MD
[2018-12-08] MEDS ORDERED: Ketorolac INJ* 15 MG/ML 1 ML VIAL IV PUSH ONE (04:30)
[2018-12-08] MEDS ORDERED: fentaNYL* 50 MCG/ML 2 ML VIAL (100 MCG VIAL) IV SLOW PU ONE (05:00)
[2018-12-08] MEDS: Morphine 4 MG/ML VIAL (1 ml) 4 MG/ML VIAL IV PRN ×3 (06:02→21:31)
[2018-12-08] MEDS: Ondansetron INJ* 2 MG/ML VIAL IV PRN ×3 (06:02→21:31)
[2018-12-08 07:03] LABS: ALT 115 U/L (7-52); AST 67 U/L (13-39); Albumin 3.5 g/dL (3.2-5.2); Albumin/Globulin Ratio 2.1 (1-3); Alkaline Phosphatase 115 U/L (34-104); Anion Gap 1 mmol/L (2-11); BUN/Creatinine Ratio 6.5 (8-20); Blood Urea Nitrogen 4 mg/dL (6-24); CO2 Carbon Dioxide 31 mmol/L (22-32); Calcium 8.2 mg/dL (8.6-10.3); Chloride 107 mmol/L (101-111); EGFR African American 135.9 (>60); EGFR Non-African American 112.3 (>60); Globulin 1.7 g/dL (2-4); Glucose 91 mg/dL (70-100); Magnesium 1.8 mg/dL (1.9-2.7); Potassium 3.5 mmol/L (3.5-5.0); Sodium 139 mmol/L (135-145); Total Protein 5.2 g/dL (6.4-8.9)
--- NOTE | 2018-12-08 10:05 | PN ---
Subjective Date of Service: 12/08/18 Interval History: Patient tells me she has been having RUQ pain during this hospitalization that is continuing, relieved with morphine. Last night she started having "sharp, stabbing" pains to her LUQ as well which have been intermittent. She finds relief with morphine. She has intermittent nausea, which is worse while she is eating. Has not had a bowel movement in 5 days. Denies vomiting, chest pain, difficulty breathing, chills. Tells me she feels warm once in a while. She refuses to take toradol because her surgeon at [place] told her she should never have NSAIDs. Objective Active Medications: Clonazepam (Klonopin Tab(*)) 1 mg PO QID [facility] Last Admin: 12/07/18 20:37 Dose: 1 mg Gabapentin (Neurontin Cap(*)) 900 mg PO TID [facility] Last Admin: 12/07/18 20:37 Dose: 900 mg Hydroxyzine HCl (Atarax Tab*) 25 mg PO QID [facility] Last Admin: 12/07/18 20:36 Dose: 25 mg Sodium Chloride (Ns 0.9% 1000 Ml) 1,000 mls @ 75 mls/hr IV PER RATE [facility] Morphine Sulfate (Morphine 4 Mg/Ml Vial (1 Ml)) 4 mg IV Q4H PRN PRN Reason: Pain - Moderate to Severe Last Admin: 12/08/18 06:02 Dose: 4 mg Ondansetron HCl (Zofran Inj*) 4 mg IV Q6H PRN PRN Reason: NAUSEA Last Admin: 12/08/18 06:02 Dose: 4 mg Promethazine HCl (Phenergan Supp*) 12.5 mg MT Q6H PRN PRN Reason: NAUSEA/VOMITING Last Admin: 12/04/18 23:02 Dose: 12.5 mg Tizanidine HCl (Zanaflex Tab*) 8 mg PO TID PRN PRN Reason: SPASMS - MUSCLE Last Admin: 12/07/18 22:46 Dose: 8 mg Vital Signs - 8 hr 12/08/18 12/08/18 12/08/18 02:46 04:01 04:42 Temperature 97.3 F Pulse Rate 80 80 84 Respiratory 16 16 Rate Blood Pressure 70/43 83/53 85/51 (mmHg) O2 Sat by Pulse 98 99 98 Oximetry 12/08/18 12/08/18 12/08/18 05:12 05:50 06:02 Temperature Pulse Rate 80 Respiratory 16 16 Rate Blood Pressure 101/66 (mmHg) O2 Sat by Pulse 98 Oximetry 12/08/18 07:15 Temperature 98.1 F Pulse Rate 80 Respiratory 16 Rate Blood Pressure 98/67 (mmHg) O2 Sat by Pulse 99 Oximetry Oxygen Devices in Use Now: None Appearance: Thin, young white female laying in hospital bed appearing in NAD Eyes: No Scleral Icterus, PERRLA Ears/Nose/Mouth/Throat: Mucous Membranes Moist, - - dentition with degrading enamel, particulary in atnerior lower teeth Neck: NL Appearance and Movements; NL JVP Respiratory: Symmetrical Chest Expansion and Respiratory Effort, Clear to Auscultation Cardiovascular: NL Sounds; No Murmurs; No JVD, RRR Abdominal: - - hypoactive BS [id number]; tenderness to palp in bilateral upper quadrants Extremities: No Edema, No Clubbing, Cyanosis Skin: No Rash or Ulcers Neurological: Alert and Oriented x 3, NL Muscle Strength and Tone - Nutrition: Malnutrition Diagnosis/Plan Malnutrition Assessment by Registered Dietitian: Malnutrition Assessment Clinical Characteristics Acute,Severe Malnutrition Assessment: severe wt loss: 14.6% x 1 mo Criteria < or = 50% of EEE x > or = 5 days Malnutrition Assessment: advance diet per provider Interventions Pt amenable to oral nutrition supplement when diet advanced Malnutrition Assessment: Goals 1. Pt will tolerate diet advancement without GI distress 2. Pt will establish regular bowel pattern as suspected obstruction resolves 3. K+ will normalize with repletion Result Diagrams: 12/07/18 04:00 12/08/18 06:30 Additional Lab and Data: Laboratory Results - last 24 hr 12/06/18 12/07/18 12/07/18 19:30 04:00 04:00 WBC 8.8 RBC 4.26 Hgb 13.2 Hct 39 MCV 92 MCH 31 MCHC 34 RDW 13 Plt Count 276 MPV 8.4 Neut % (Auto) 42.6 Lymph % (Auto) 41.4 [place] % (Auto) 9.3 Eos % (Auto) 5.9 Baso % (Auto) 0.8 Absolute Neuts (auto) 3.7 Absolute Lymphs (auto) 3.6 Absolute Monos (auto) 0.8 Absolute Eos (auto) 0.5 Absolute Basos (auto) 0.1 Absolute Nucleated RBC 0.0 Nucleated RBC % 0.1 Sodium 138 Potassium 3.2 L Chloride 103 Carbon Dioxide 30 Anion Gap 5 BUN 5 L Creatinine 0.64 Est GFR ( Amer) 131.0 Est GFR (Non-Af Amer) 108.2 BUN/Creatinine Ratio 7.8 L Glucose 103 H Calcium 8.5 L Magnesium 1.7 L Total Bilirubin 1.50 H AST 182 H ALT 195 H Alkaline Phosphatase 157 H Total Protein 6.2 L Albumin 3.9 Globulin 2.3 Albumin/Globulin Ratio 1.7 Lipase 15 Urine Color Yellow Urine Appearance Clear Urine pH 7.0 Ur Specific [place] 1.004 L Urine Protein Negative Urine Ketones Negative Urine Blood 1+ A Urine Nitrate Negative Urine Bilirubin Negative Urine Urobilinogen Positive A Ur Leukocyte Esterase Negative Urine WBC (Auto) Trace(0-5/hpf) Urine RBC (Auto) 1+(3-5/hpf) A Ur Squamous Epith Cells Present A Urine Bacteria Absent Urine Glucose Negative Hepatitis A IgM Ab Hep Bs Antigen Hep B Core IgM Ab Hepatitis C Antibody Hepatitis C Ab Index 12/07/18 04:00 WBC RBC Hgb Hct MCV MCH MCHC RDW Plt Count MPV Neut % (Auto) Lymph % (Auto) [place] % (Auto) Eos % (Auto) Baso % (Auto) Absolute Neuts (auto) Absolute Lymphs (auto) Absolute Monos (auto) Absolute Eos (auto) Absolute Basos (auto) Absolute Nucleated RBC Nucleated RBC % Sodium Potassium Chloride Carbon Dioxide Anion Gap BUN Creatinine Est GFR ( Amer) Est GFR (Non-Af Amer) BUN/Creatinine Ratio Glucose Calcium Magnesium Total Bilirubin AST ALT Alkaline Phosphatase Total Protein Albumin Globulin Albumin/Globulin Ratio Lipase Urine Color Urine Appearance Urine pH Ur Specific [place] Urine Protein Urine Ketones Urine Blood Urine Nitrate Urine Bilirubin Urine Urobilinogen Ur Leukocyte Esterase Urine WBC (Auto) Urine RBC (Auto) Ur Squamous Epith Cells Urine Bacteria Urine Glucose Hepatitis A IgM Ab Negative Hep Bs Antigen Negative Hep B Core IgM Ab Nonreactive Hepatitis C Antibody Negative Hepatitis C Ab Index 0.46 Microbiology and Other Data: . Assess/Plan/Problems-Billing Assessment: 33 yr old female with pmh of Sergio-Danlos, chronic fatigue, chronic pain, SMA, gastroparesis, endometriosis, POTS, Hx of PE, seizures, bradycardia; who presented with c/o of vomiting and abd pain x 2 weeks - Patient Problems (1) Abdominal pain Current Visit: Yes Status: Acute Code(s): R10.9 - UNSPECIFIED ABDOMINAL PAIN SNOMED Code(s): 51133693 Comment: - Reports aggrivating factors include PO intake - Reports pain will increase and decrease without aggrivating factors also - Reports pain is slightly worse in RUQ - Pain previously only RUQ, now additionally present in LUQ - EGD today normal - Ordered prn tylenol, toradol, and oxycodone, continue prn morphine for breakthrough - Discussed that patient should consider NSAIDs given that EGD was without ulcers, thoroughly discussed safety - Ordered suppository as patient has not had BM in 5 days and abd x-ray demonstrates colon full of stool (2) Nausea & vomiting Current Visit: Yes Status: Acute Code(s): R11.2 - NAUSEA WITH VOMITING, UNSPECIFIED SNOMED Code(s): 22632318 Comment: - Nausea is unchanged overall, tells me has nausea while eating clear liquid diet - Surgery consulting and read CT from [place]. Reports no evidence of SBO and recommends GI consult given patient's significant hx - Cont PRN nasuea medications - GI consulting and plan for upper gi and endoscopy, appreciate recommendations - May need CT with oral contrast depending on other test findings. She reports if she needs CT with contrast she has been able to have constrast in the past with only premedication of Benadryl as she is allergic to Prednisone. She reports previously she was given Benadryl 50 mg IV prior to contrast and tolerated contrast well (3) Elevated liver function tests Current Visit: Yes Status: Acute Code(s): R94.5 - ABNORMAL RESULTS OF LIVER FUNCTION STUDIES SNOMED Code(s): 176369632 Comment: - Downtrending elevation of Rover[place], AST, ALT, Alk Phos - S/P zhang - US of upper right qaud unremarkable - Boyfriend expressed concern as he has Hep C. Acute Hep Panel unremarkable - Maybe infectious? As she did have elevated wbc and slight fever on admission. Continue to follow LFTs (4) Urinary retention Current Visit: Yes Status: Acute Code(s): R33.9 - RETENTION OF URINE, UNSPECIFIED SNOMED Code(s): 412995533 Comment: - 12/06/18 bladder scan completed and revealed > 900. Patient straight cath'd and later retained again. Discussed milligan versus another straight cath and patient opted for milligan - Likely due to constipation - She reported previously that this is not new for her that she was having difficulty voiding when she was living in [place] and was very recently referred to a UroGyn for evaluation of possible neurogenic bladder, but did not have the evaluation completed prior to moving here - D/c milligan today and observing (5) Bradycardia Current Visit: Yes Status: Acute Code(s): R00.1 - BRADYCARDIA, UNSPECIFIED SNOMED Code(s): 73207019 Comment: - Hx of bradycardia - Normal rate during this entire hospital stay thus far - Not currently on tele (6) Chronic pain Current Visit: Yes Status: Acute Code(s): G89.29 - OTHER CHRONIC PAIN SNOMED Code(s): 90416193 Comment: - Continue gabapentin (7) POTS (postural orthostatic tachycardia syndrome) Current Visit: Yes Status: Acute Code(s): R00.0 - TACHYCARDIA, UNSPECIFIED; I95.1 - ORTHOSTATIC HYPOTENSION SNOMED Code(s): 571672925 Comment: - Hx of - Supportive care and IVF - Pacemaker in place (8) Seizures Current Visit: Yes Status: Acute Code(s): R56.9 - UNSPECIFIED CONVULSIONS SNOMED Code(s): 57283848 Comment: - Cont seizure precautions - Resume home medications (9) DVT prophylaxis Current Visit: Yes Status: Acute Code(s): Z29.9 - ENCOUNTER FOR PROPHYLACTIC MEASURES, UNSPECIFIED SNOMED Code(s): 418710387 Comment: - SCDs and ambulation (10) Full code status Current Visit: Yes Status: Acute Code(s): Z78.9 - OTHER SPECIFIED HEALTH STATUS SNOMED Code(s): 891709664 Status and Disposition: Inpatient.
[2018-12-08] MEDS ORDERED: fentaNYL* 50 MCG/ML 2 ML VIAL (100 MCG VIAL) ONE (10:46)
[2018-12-08] MEDS ORDERED: Midazolam* 1 MG/ML 10 ML VIAL (10 MG) ONE (10:46)
[2018-12-08] MEDS: clonazePAM TAB(*) 1 MG PO SCH ×4 (11:54→21:33)
[2018-12-08] MEDS: Gabapentin CAP(*) 300 MG PO SCH ×3 (11:55→21:32)
[2018-12-08] MEDS: hydrOXYzine HCL TAB* 25 MG PO SCH ×4 (11:55→21:32)
[2018-12-08] MEDS ORDERED: Morphine 4 MG/ML VIAL (1 ml) 4 MG/ML VIAL IV PRN (12:36)
[2018-12-08] MEDS ORDERED: Ketorolac INJ* 15 MG/ML 1 ML VIAL IV PUSH PRN (12:37)
[2018-12-08] MEDS ORDERED: Acetaminophen TAB* 325 MG PO PRN (12:38)
[2018-12-08] MEDS: oxyCODONE TAB* 5 MG TAB PO PRN ×2 (13:02→18:57)
[2018-12-08 14:13] LABS: HCG Pregnancy < 0.60 mIU/mL
[2018-12-08 15:54] LABS: C Reactive Protein 1.44 mg/L (<8.01)
--- NOTE | 2018-12-08 16:42 | PN ---
Progress Note - Progress Note Date of Service: 12/08/18 Note: Surgery Progress: S: Had EGD earlier today. States that she tried to eat lunch, but it was very difficult (i.e., painful). She continues to pass flatus, but has not had a BM since admission. Intake has also been limited. Current Medications Acetaminophen (Tylenol Tab*) 650 mg PO Q4H PRN PRN Reason: PAIN - MILD Clonazepam (Klonopin Tab(*)) 1 mg PO QID [facility] Last Admin: 12/08/18 12:57 Dose: 1 mg Gabapentin (Neurontin Cap(*)) 900 mg PO TID [facility] Last Admin: 12/08/18 12:58 Dose: 900 mg Hydroxyzine HCl (Atarax Tab*) 25 mg PO QID [facility] Last Admin: 12/08/18 12:58 Dose: 25 mg Ketorolac Tromethamine (Toradol Inj*) 15 mg IV PUSH Q6H PRN PRN Reason: PAIN - MODERATE Morphine Sulfate (Morphine 4 Mg/Ml Vial (1 Ml)) 4 mg IV Q4H PRN PRN Reason: severe pain breakthrough Last Admin: 12/08/18 15:11 Dose: 4 mg Ondansetron HCl (Zofran Inj*) 4 mg IV Q4H PRN PRN Reason: NAUSEA Last Admin: 12/08/18 12:58 Dose: 4 mg Oxycodone HCl (Roxycodone Tab*) 5 mg PO Q4H PRN PRN Reason: PAIN - SEVERE Last Admin: 12/08/18 13:02 Dose: 5 mg Promethazine HCl (Phenergan Supp*) 12.5 mg [place] Q6H PRN PRN Reason: NAUSEA/VOMITING Last Admin: 12/04/18 23:02 Dose: 12.5 mg Tizanidine HCl (Zanaflex Tab*) 8 mg PO TID PRN PRN Reason: SPASMS - MUSCLE Last Admin: 12/07/18 22:46 Dose: 8 mg O: Vital Signs - 8 hr 12/08/18 12/08/18 12/08/18 10:14 12:57 12:58 Temperature Pulse Rate Respiratory 18 18 18 Rate Blood Pressure (mmHg) O2 Sat by Pulse Oximetry 12/08/18 12/08/18 12/08/18 13:02 15:09 15:11 Temperature Pulse Rate Respiratory 18 18 18 Rate Blood Pressure (mmHg) O2 Sat by Pulse Oximetry 12/08/18 15:15 Temperature 98 F Pulse Rate 85 Respiratory 18 Rate Blood Pressure 122/75 (mmHg) O2 Sat by Pulse 98 Oximetry Intake and Output Last 24 Hours 12/06/18 12/07/18 12/08/18 12/09/18 06:59 06:59 06:59 06:59 Intake Total 1392 3190 4150 120 Output Total 1975 1780 Balance 1392 1215 2370 120 Intake: IV Fluids 1262 1850 2670 D5W 1/2 NS 20 meq KCL 1262 NS (0.9%) 1850 2670 IVPB 60 100 K 50 Magnesium 60 50 Oral 70 1340 1380 120 Output: Uribe 875 1780 Straight Cath 1100 Other: Estimated Void Large Large # Bowel Movements 0 0 # Voids 0 1 Gen: appears comfortable; NAD Abd: mult scars from prior laparoscopic surgeries; no sig distension; BS+ ( normoactive); soft; no peritoneal signs. She is moderately tender throughout the upper abdomen; somewhat tender in the RLQ; less so in the LLQ. No masses. Labs: (no CBC today; LFTs improving) Laboratory Tests 12/08/18 06:30 AST 67 H ALT 115 H Alkaline Phosphatase 115 H C-Reactive Protein 1.44 A: abdominal pain of undetermined etiology, though does not appear to be obstructed, nor does she have any indications for surgery. P: add'l imaging per Hosp/GI; we will continue to follow
[2018-12-08] MEDS ORDERED: Bisacodyl SUPP* 10 MG SUPP PR ONE (18:22)
[2018-12-08] MEDS ORDERED: Magnesium Oxide TAB* 400 MG PO ONE (18:35)
[2018-12-08] MEDS ORDERED: Polyethylene Glycol 3350* 17 GM PACKET PO PRN (21:20)
[2018-12-08] MEDS ORDERED: Senna TAB 8.6 mg* TAB PO PRN (21:21)
--- NOTE | 2018-12-08 21:26 | PRO ---
DATE: 12/08/18 - Inpatient, room 407-01 REFERRING PHYSICIAN: Tomer Mcgovern.* PROCEDURE: Upper gastrointestinal endoscopy and biopsy third portion duodenum per routine histology, CLOtest mid gastric body. 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 She just moved here from [place] where she was born and raised and now is living in the [facility] where there is family support. She does not have insurance arranged, but has picked out online various clinics at [facility] or other practitioner she intends on following up with including a Dysautonomia Clinic, Infusion Center, neurosurgeon and Cardiology. Her history is extraordinarily complex and includes childhood gastrointestinal symptoms with multiple upper endoscopies, appendectomy at age 26, cholecystectomy at age 26, hysterectomy for endometriosis at age 28 (ovaries she states were left in place), orthostatic hypotension syndrome (POTS) for which she had a pacemaker placed at [facility] in [place]. 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 She also has a subclavicular port in place, details not reviewed. At [facility] in December 2016, she had a jejunal bypass for SMA syndrome. Postop she had some bleeding from the upper GI tract and clips placed she reports. She has some transfusions. There is a remote history of pulmonary embolism. The exact workup and how Sergio-Danlos fits in to this was not reviewed today. Medications on her history do not include any acid blockade. She is allergic to multiple antibiotics including PENICILLIN, CEPHALOSPORINS and CIPROFLOXACIN, details not elicited. The current illness began a couple of weeks ago where both she and her simultaneously developed upper abdominal pain and vomiting. He recovered within a day or 2 and she has not. During their trip up here, she was admitted to the hospital in [place], [place] for 2 days. Those records are on request. Her last upper endoscopy was at [facility] in March 2017, which she says was to follow up after the ulcers, which were seen in the perioperative time in December. The ulcers were gone. With abdominal pain reported 5 or 6 months ago, her [facility] surgeon, Dr. Tripp Koch was going to arrange for her to have an endoscopy at [facility] in [place]. It is unclear why that plan was formulated as she says most all of her doctors through the years have been in [place], [place] where she is originally from. ENDOSCOPIST: Dr. Teran. MEDICATIONS: Midazolam 12, fentanyl 200 with excellent cooperation and intolerance. FINDINGS: She is a slender, slightly pale, weak appearing woman in no overt distress. She was positioned left side down and moderate sedation induced and the exam accomplished with ease. EGD: Larynx - no gross disease. Esophagus - easily entered, the mucosa is normal in the upper, mid, and lower esophagus with the EG junction at 36 snug and normal without any scarring or hiatal hernia. Stomach - generally normal contours and rugal folds and normal pattern in the cardia, fundus, body and antrum. Peristalsis was seen. Duodenum - normal mucosa in the bulb second and third portions and then anastomosis is seen to a 10 o'clock orientation. There are some sutures visible. There is no erythema and no blood. The mucosa in the anastomotic area and for a few centimeters down what appears to be a bypass limb appears normal. There was no retention or backup. IMPRESSION: 1. Normal esophagus and stomach. 2. Normal mucosa in the [place] duodenum and then the surgical areas. There is no sign of obstruction or erythema. 3. Nausea and vomiting - source unclear, although it is noted her ALT is up, raising the question of common bile duct sludge. None was seen on ultrasound, though followup LFTs will be needed along with an assessment as to whether she could have an MRCP. Avoiding standard x-ray radiographs is likely a priority given extensive testing that she has already had. 4. Presence of pacemaker - will be clarified as regards MRI decision making. Addendum: Clotest negative duodenal bx normal [id number]/[facility] #: [id number] MTDD
[2018-12-09] MEDS: Ondansetron INJ* 2 MG/ML VIAL IV PRN ×2 (03:29→18:09)
[2018-12-09] MEDS: Morphine 4 MG/ML VIAL (1 ml) 4 MG/ML VIAL IV PRN ×2 (03:29→10:49)
[2018-12-09 05:47] LABS: ABS Basophils 0.1 10^3/ul (0-0.2); ABS Eosinophils 0.5 10^3/ul (0-0.6); ABS Monocytes 0.6 10^3/ul (0-0.8); ABS Neutrophils 3.1 10^3/ul (1.5-7.7); Eosinophil % 6.4 %; Hematocrit 33 % (35-47); Hemoglobin 11.2 g/dL (12.0-16.0); Lymphocyte % 41.9 %; Mean Corpuscular HGB Conc 34 g/dL (31-36); Mean Corpuscular Hemoglobin 31 pg (27-31); Mean Corpuscular Volume 93 fL (80-97); Mean Platelet Volume 8.6 fL (7.4-10.4); Nucleated Red Blood Cells % 0.2; Platelet Count 276 10^3/uL (150-450); Red Blood Count 3.58 10^6 /uL (3.70-4.87); Red Cell Distribution Width 13 % (10-15); White Blood Count 7.2 10^3/uL (3.5-10.8)
[2018-12-09 06:02] LABS: Albumin 3.4 g/dL (3.2-5.2); Albumin/Globulin Ratio 1.7 (1-3); BUN/Creatinine Ratio 9.2 (8-20); Calcium 8.1 mg/dL (8.6-10.3); EGFR African American 128.6 (>60); EGFR Non-African American 106.3 (>60); Magnesium 1.7 mg/dL (1.9-2.7); Potassium 3.1 mmol/L (3.5-5.0); Total Bilirubin 0.5 mg/dL (0.2-1.0); Total Protein 5.4 g/dL (6.4-8.9)
[2018-12-09 06:50] LABS: Urine Appearance Cloudy; Urine Bacteria Absent (Absent); Urine Bilirubin Negative (Negative); Urine Blood 2+ (Negative); Urine Color Yellow; Urine Glucose Negative (Negative); Urine Ketones Negative (Negative); Urine Nitrite Negative (Negative); Urine Protein Negative (Negative); Urine Red Blood Cell 1+(3-5/hpf) (Absent); Urine Squamous Epithelial Cell Present (Absent); Urine Urobilinogen Positive (Negative); Urine White Blood Cell Trace(0-5/hpf) (Absent)
[2018-12-09] MEDS: Gabapentin CAP(*) 300 MG PO SCH ×2 (08:35→13:21)
[2018-12-09] MEDS: oxyCODONE TAB* 5 MG TAB PO PRN ×3 (08:36→17:23)
[2018-12-09] MEDS: hydrOXYzine HCL TAB* 25 MG PO SCH ×3 (08:36→17:23)
[2018-12-09] MEDS: clonazePAM TAB(*) 1 MG PO SCH ×3 (08:37→17:23)
[2018-12-09] MEDS: KCL 20 MEQ/100 ML IVPREMIX* 20 MEQ/100 ML BAG IV SCH ×3 (10:26→15:33)
[2018-12-09] MEDS ORDERED: Bisacodyl SUPP* 10 MG SUPP PR ONE (11:19)
[2018-12-09] MEDS: PROMETHAZINE 25 MG PR PRN (11:50)
[2018-12-09] MEDS: DEXTROAMPHETAMINE SULFATE PO SCH ×2 (12:36→12:37)
[2018-12-09 15:39] VITALS: BP 124/83
--- NOTE | 2018-12-09 16:16 | PN ---
Progress Note - Progress Note Date of Service: 12/09/18 Note: Surgery progress: S: Feeling better today and is anticipating being discharged to home this pm. Was able to eat and drink better today and without as much pain. Had small BM. Continues to pass flatus. I reviewed Dr. Teran's endoscopy report from yesterday. O: Vital Signs - 8 hr 12/09/18 12/09/18 12/09/18 08:35 08:36 08:37 Temperature Pulse Rate Respiratory 17 17 17 Rate Blood Pressure (mmHg) O2 Sat by Pulse Oximetry 12/09/18 12/09/18 12/09/18 08:38 10:35 10:36 Temperature Pulse Rate Respiratory 17 16 17 Rate Blood Pressure (mmHg) O2 Sat by Pulse Oximetry 12/09/18 12/09/18 12/09/18 10:49 11:15 12:11 Temperature 98.1 F Pulse Rate 95 Respiratory 14 16 18 Rate Blood Pressure 136/90 (mmHg) O2 Sat by Pulse 100 Oximetry 12/09/18 12/09/18 12/09/18 13:10 13:12 13:21 Temperature Pulse Rate Respiratory 22 22 22 Rate Blood Pressure (mmHg) O2 Sat by Pulse Oximetry 12/09/18 12/09/18 12/09/18 15:06 15:07 15:15 Temperature 97.8 F Pulse Rate 89 Respiratory 16 18 16 Rate Blood Pressure 124/83 (mmHg) O2 Sat by Pulse 98 Oximetry Intake and Output Last 24 Hours 12/07/18 12/08/18 12/09/18 12/10/18 06:59 06:59 06:59 06:59 Intake Total 3190 4150 450 800 Output Total 1974 3220 354 8178 Balance 1215 2370 -500 -2450 Intake: IV Fluids 1850 2670 NS (0.9%) 1850 2670 IVPB 100 K 50 Magnesium 50 Oral 1340 1380 450 800 Output: Urbie 875 1780 3250 Straight Cath 1100 950 Other: Estimated Void Large # Bowel Movements 0 0 0 0 # Voids 1 0 Gen: sitting up in bed; appears comfortable Heart: reg Lungs: clear ant Abd: BS+; soft; mild epigastric and RUQ tenderness, but much improved vs yesterday. Lower abd soft, nontender. Labs reviewed: CBC essentially normal; LFTs continue to improve; K+ 3.1 ( receiving IV KCl) A: abdominal pain of undetermined etiology, improved P: probable discharge home today; I gave her contact info for our office, though surgical followup will be prn
[2018-12-09 17:08] LABS: BUN/Creatinine Ratio 8.1 (8-20); EGFR African American 246.5 (>60); EGFR Non-African American 203.7 (>60); Potassium 2.9 mmol/L (3.5-5.0)
[2018-12-09 17:17] LABS: Calcium 5.7 mg/dL (8.6-10.3)
--- NOTE | 2018-12-09 22:34 | DS ---
CC: Dr. Painting; Dr. Keith DISCHARGE SUMMARY: DATE OF ADMISSION: 12/04/18 DATE OF DISCHARGE: 12/09/18 PRIMARY CARE PROVIDER: None local. PROVIDER: MAIK Leon CONSULTING GENERAL SURGEON: Dr. Painting. CONSULTING AEROSPACE ENGINEER OFFICER ARMAMENT: Dr. Keith. PRIMARY DIAGNOSIS: Abdominal pain of unclear etiology. DICTATION ENDS HERE MAIK LEON [id number]/[facility] #: [id number] MTDD
--- NOTE | 2018-12-09 23:24 | DS ---
CC: Dr. Painting; Dr. Keith* DISCHARGE SUMMARY: DATE OF ADMISSION: 12/04/18 DATE OF DISCHARGE: 12/09/18 PRIMARY CARE PROVIDER: None local. ATTENDING PHYSICIAN: Dr. Tomer Mcgovern* (dictated by MAIK Leon). PROVIDER: MAIK Leon CONSULTING GENERAL SURGEON: Dr. Painting. CONSULTING SAFETY SECURITY OFFICER: Dr. Keith. PRIMARY DIAGNOSIS: Abdominal pain, unclear etiology, likely viral gastroenteritis. SECONDARY DIAGNOSES: 1. Sergio-Danlos. 2. Chronic fatigue. 3. Chronic pain. 4. SMA syndrome. 5. Gastroparesis. 6. Endometriosis. 7. POTS syndrome. 8. History of pulmonary embolism. 9. Nonepileptic seizures. 10. Bradycardia, status post pacemaker. 11. Generalized anxiety disorder. 12. History of previous anorexia nervosa combined with bulimia. PROCEDURES WHILE IN THE HOSPITAL: Endoscopy on 12/08/18, performed by Dr. Teran, normal esophagus and stomach, normal mucosa. STUDIES WHILE IN THE HOSPITAL: Abdominal x-ray on 12/08/18, nonspecific bowel gas pattern per Radiology read. Per my read, the colon has large stool. Liver ultrasound on 12/06/18, echogenic liver consistent with hepatic steatosis, status post cholecystectomy. HISTORY OF PRESENT ILLNESS/HOSPITAL COURSE: Luda Eisenberg is a 33-year-old white female with past medical history significant for chronic pain, chronic fatigue, POTS syndrome with a pacemaker, Sergio-Danlos syndrome, hypermobility type and nonepileptic seizures, who presented to the emergency department as a transfer from [facility] on 12/04/18. Please see admitting history and physical written by Carol Can, nurse practitioner for information. Ultimately, the patient had continued abdominal pain during her hospital stay and the etiology was not found. She did have resolution of her nausea and vomiting and her abdominal pain was manageable with pain medication on the day of her discharge. The patient is quite anxious and tearful at times. The patient had multiple episodes of urinary retention during hospital stay. Ultimately, on the day of discharge, she was given a suppository and had a large bowel movement and was able to have her Uribe catheter removed, urinate, and was not retaining any urine on post-void bladder scan. The patient tells us she was beginning to have a workup for neurogenic bladder before she moved from [place] to [place], [place], but did not ultimately receive the diagnosis. Additionally, the patient had elevated LFTs which continued to downtrend during her hospital stay, felt that this is possibly related to viral gastroenteritis as well causing the significant nausea and vomiting she was having with poor oral intake causing some hypovolemia; however, additionally her liver ultrasound was demonstrating only hepatosteatosis. Again, this could be reflective of the elevation in the setting of acute illness. Her hepatitis panel was negative. The patient did receive IV fluids during hospital stay due to the concern for nausea and vomiting and the patient requesting fluids due to her POTS syndrome, these were ultimately ordered to be discontinued. She had some hypokalemia which was likely dilutional and was repleted with 60 total mEq of IV. On the day of discharge, her BMP was repeated. Due to unclear reason, the BMP that was repeated in the afternoon and a critical lab value was mistakenly not reported to this advertising copywriter. There were multiple abnormalities including calcium of 5.7; however, her calcium was 8.1 in the morning with an ionized calcium of 1.17 and the chloride was significantly increased and her potassium was decreased despite much repletion. I believe that this is medical field representative of the patient's labs being drawn close to saline that was running and this was therefore an inaccurate lab. Additionally, her creatinine dropped from 0.65 to 0.37 within a day, which is further evidence of this is likely the case. PHYSICAL EXAMINATION ON DAY OF DISCHARGE: General: Thin, young female lying in hospital bed, appearing comfortable, in no acute distress. ENT: Mucous membranes moist. Worn enamel of teeth. Neck: Supple without JVD. Cardio: Regular rate and rhythm without murmurs, rubs or gallops. Lungs: Clear to auscultation throughout. Abdomen: Minimally tender to palpation in the right upper quadrant. Otherwise, abdomen is soft and nondistended with normoactive bowel sounds x4 quadrants. Extremities: No clubbing, cyanosis, or edema. No calf tenderness, no palpable cords. Neuro: The patient is alert and oriented x3. No focal deficits. DISCHARGE PLAN: DIET: Low residue diet. ACTIVITY: The patient may return to normal activity as tolerated. The patient is advised to return to the emergency department if she experiences vomiting such as she is unable to keep liquids down, severe abdominal pain, blood in her stool, or if she does not urinate for over 12 hours. The patient will be called in the morning to have her BMP rechecked by the [facility]. The patient is advised to follow up with the [facility] [place]. The patient does not have a primary care provider in this area. She has already scheduled a followup with [facility]. Additionally, she was provided informations for the local urologist that she can have further workup for her urinary retention which has been a chronic issue for her. DISCHARGE MEDICATIONS: 1. Oxycodone 5 mg p.o. q.6 hours p.r.n. severe abdominal pain, maximum daily dose 4 tabs, 3 day supply provided. 2. Tylenol 650 p.o. q.4 hours p.r.n. pain. Continued home medications: 1. Butalbital/acetaminophen 25/325 one to two tablets p.o. q.4 hours p.r.n. headache. 2. Clonazepam 1 mg p.o. 4 times a day. 3. Gabapentin 3 of 900 mg p.o. t.i.d. 4. Promethazine 12.5 mg p.o. q.6 hours. 5. Tizanidine 8 mg p.o. t.i.d. p.r.n. nausea. 6. Hydroxyzine 25 mg p.o. 4 times a day. 7. Adderall 20 mg p.o. t.i.d. CONDITION ON DISCHARGE: Stable. DISPOSITION: Home. TIME SPENT: Approximately 40 minutes was spent on this discharge, approximately half this time was spent at bedside evaluating the patient, discussing the plan for discharge. MAIK LEON [id number]/[facility] #: [id number] [facility]
== END 2018-12-09 18:45 | disposition home or self-care (01) | DRG 392 ==
LOC: MED 20:14
PROVIDERS: ADMIT Internal Medicine; ATTEND Internal Medicine
PROC: 0DD98ZX Extraction of Duodenum, Via Natural or Artificial Opening Endoscopic, Diagnostic (ICD-10-PCS; principal; 2018-12-08)
PROC: 0DD68ZX Extraction of Stomach, Via Natural or Artificial Opening Endoscopic, Diagnostic (ICD-10-PCS; 2018-12-08)
DX: R10.11 Right upper quadrant pain (principal); Q79.6 Ehlers-Danlos syndromes; A08.4 Viral intestinal infection, unspecified; R53.82 Chronic fatigue, unspecified; G89.29 Other chronic pain; K31.84 Gastroparesis; N80.9 Endometriosis, unspecified; I49.8 Other specified cardiac arrhythmias; R33.9 Retention of urine, unspecified; R56.9 Unspecified convulsions; R94.5 Abnormal results of liver function studies; F41.1 Generalized anxiety disorder; K76.0 Fatty (change of) liver, not elsewhere classified; Z95.0 Presence of cardiac pacemaker; Z86.711 Personal history of pulmonary embolism; Z79.1 Long term (current) use of non-steroidal anti-inflammatories (NSAID); Z79.899 Other long term (current) drug therapy; Z88.0 Allergy status to penicillin; Z88.8 Allergy status to other drugs, medicaments and biological substances; Z88.1 Allergy status to other antibiotic agents; Z91.012 Allergy to eggs
CPT/HCPCS: 36415; 74018; 76705; 80048; 80053; 80074; 81003; 81015; 82330; 83690; 83735; 84443; 84702; 85025; 86140; 87077; 87086; 87186; 88305; 99156; 99157; A9270-GY; J1200; J1885; J2250; J2270; J2405; J3010; J3475; J3480

== ENCOUNTER 2019-01-26 18:27 | Emergency (ER) | payer OTHER ==
--- OUTSIDE RECORDS SUMMARY | 2019-01-26 18:34 | XMS REPORT | Continuity of Care Document ---
:1985 External Reference #:[id number] Author Name Azul Trujillo M.D. Address [address] [place] [address] Care Team Providers Name Role Phone Betsy Lazo MD Care Team Information Care Program Director [phone] Cherelle Duarte DO - Emergency Medicine Care Team Information Care Program Director [phone] Problems Active Problems Provider Date Neurogenic dysfunction of the urinary bladder Azul Trujillo M.D. Onset: Social History Type Date Description Comments Sex Unknown Tobacco Use Start: Unknown Patient has never smoked Smoking Status Reviewed: 01/18/19 Patient has never smoked Allergies, Adverse Reactions, Alerts Active Allergies Reaction Severity Comments Date Radioactive Iodine Flushing, Hives, Itching Severe 01/05/2019 Penicillin Facial swelling, Hives Severe 01/05/2019 Amoxicillin Facial swelling, Hives, Severe 01/05/2019 Itching Cipro Difficulty breathing, Severe 01/05/2019 Difficulty swallowing, Facial swelling, Flushing, Hives Levaquin Difficulty swallowing, Facial Severe 01/05/2019 swelling, Flushing, Hives, Swelling of eyelid, Tongue swelling Cephalosporins Difficulty breathing, Severe 01/05/2019 Difficulty swallowing, Facial swelling, Hives, Itching, Swelling of eyelid, Tongue swelling Prednisone Difficulty breathing, Severe 01/05/2019 Difficulty swallowing, Facial swelling, Hives, Itching, Swelling of eyelid, Tongue swelling Sulfa Drugs Diarrhea, Difficulty Severe 01/05/2019 breathing, Difficulty swallowing, Hives, Itching, Swelling of eyelid, Tongue swelling Reglan Anxiety, Difficulty Severe 01/05/2019 breathing, Difficulty swallowing, Facial swelling, Swelling of eyelid, Tongue swelling Advair Difficulty breathing, Severe 01/05/2019 Difficulty swallowing, Dizziness, Palpitations, Swelling of eyelid, Tongue swelling NSAIDS Abdominal pain, Chest Severe 01/05/2019 discomfort, Nausea, history of ulcers. Methylprednisolone Anxiety, Facial swelling, Severe 01/05/2019 Hives, Itching, Nausea, Swelling of eyelid, Tongue swelling Peanut Oil Chest discomfort, Diarrhea, Severe 01/05/2019 Dizziness, Facial swelling, Hives, Itching, Nausea, Swelling of eyelid, Tongue swelling Tree Nuts Anxiety, Chest discomfort, Severe 01/05/2019 Diarrhea, Facial swelling, Flushing, Hives, Itching, Nausea, Swelling of eyelid, Tongue swelling Coconut Difficulty breathing, Severe 01/05/2019 Difficulty swallowing, Dizziness, Facial swelling, Flushing, Hives, Itching, Swelling of eyelid, Tongue swelling, Unconsciousness Fish-derived Products Difficulty breathing, Severe 01/05/2019 Difficulty swallowing, Facial swelling, Flushing, Hives, Itching, Nausea, Palpitations, Swelling of eyelid, Tongue swelling, Unconsciousness, Wheezing Shellfish-derived Products Chest discomfort, Difficulty Severe 01/05/2019 breathing, Difficulty swallowing, Dizziness, Facial swelling, Flushing, Hives, Itching, Swelling of eyelid, Tongue swelling, Unconsciousness Pineapple Anxiety, Difficulty Severe 01/05/2019 breathing, Difficulty swallowing, Facial swelling, Flushing, Hives, Itching, Nausea, Palpitations, Swelling of eyelid, Tongue swelling, Unconsciousness Medications Active Medications SIG Qnty Indications Ordering Date Provider Gentamicin Sulfate given once in office 2ml Azul Trujillo, 01/21/2019 for in office M.D. 40mg/ml Solution procedure. given intramuscular - 80 mg Clonazepam Unknown 1mg Tablets Oxycodone-Acetaminop TK 1 T PO Q 6 H PRF Unknown hen Pain. MDD 4 5-325mg Tablets Womngmasof-Ncwpfxk-M TK 2 CS PO Q 4 To 6 H Unknown affeine as Needed. MDD 6 CS 50-325-40mg Capsules Amphetamine-Dextroam Unknown phetamine 20mg Tablets Oxycodone HCL Unknown 10mg Tablets Zolpidem Tartrate take 1 tablet by Unknown 5mg mouth at bedtime if Tablets needed for Sleep maximum daily dose of 1 Ondansetron HCL TK 1 T PO bid PRF Unknown 8mg Nausea Tablets Gabapentin TK 3 CS PO tid Unknown 300mg Capsules Linzess 1 cap by mouth every Unknown 145mcg night, hold for Capsules unformed bm Zanaflex 8 mg tablet 1 tablet Unknown 6mg Capsules by mouth tid Miralax take one package with Unknown 3350NF Packet 10 oz of water every day Lactulose 15 milliliters by Unknown 20GM/30ML mouth twice a day as Solution needed Medications Administered in Office Medication SIG Qnty Indications Ordering Provider Date Injection Gentamicin To Azul Trujillo M.D. 01/21/2019 80MG/2ML Injection Immunizations Description No Information Available Vital Signs Date Vital Result Comment 01/21/2019 11:49am BP Systolic 94 mmHg BP Diastolic 67 mmHg Body Temperature 97.0 F Heart Rate 93 /min Respiratory Rate 16 /min Weight 118.00 lb O2 % BldC Oximetry 98 % Pain Level 0 01/05/2019 1:31pm BP Systolic 134 mmHg BP Diastolic 86 mmHg Body Temperature 98.7 F Heart Rate 125 /min Respiratory Rate 16 /min Weight 112.12 lb O2 % BldC Oximetry 95 % Pain Level 0 Results Description No Information Available Procedures Date Code Description Status 01/05/2019 22317 Measurement Post Voiding Residual Urine By Completed Ultrasound,Non-Imaging 01/05/2019 74742 Measurement Post Voiding Residual Urine By Completed Ultrasound,Non-Imaging Medical Devices Description No Information Available Encounters Type Date Location Provider Dx Diagnosis Office Visit 01/05/2019 1:15p Urology Azul Trujillo M.D. R34 Anuria and oliguria Assessments Date Code Description Provider 01/21/2019 N31.9 Neuromuscular dysfunction of bladder, Azul Trujillo M.D. unspecified 01/05/2019 R34 Anuria and oliguria Azul Trujillo M.D. 12/04/2018 K56.600 Partial intestinal obstruction, John Vazquez MD,FACS unspecified as to cause 12/04/2018 Z87.19 Personal history of other diseases of the John Vazquez MD,FACS digestive system Plan of Treatment 01/21/2019 - Azul Trujillo M.D.N31.9 Neuromuscular dysfunction of bladder, unspecifiedComments:Patient with evidence of neurogenic bladder based on the urodynamic tracings. Her cystoscopy did not show evidence of obstruction. Options for management of neurogenic bladder discussed with the patient including CIC which she is ready doing there were also discussed and InterStim trial to see if wecan stimulate the bladder. I told the patient I will be doing this in a staged fashion is stage I works then we would do a permanent implant if there appears to be no improvement then the leads will be removed. She is agreeable to proceed and she will be scheduled for next week. Functional Status Description No Information Available Mental Status Description No Information Available Referrals Description No Information Available
--- OUTSIDE RECORDS SUMMARY | 2019-01-26 18:34 | XMS REPORT | Continuity of Care Document ---
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 Problems Description No Information Available Social History Type Date Description Comments Sex Unknown ETOH Use Never used alcohol Tobacco Use Start: Unknown Patient has never smoked Recreational Drug Use Never Used Drugs Smoking Status Reviewed: 01/20/19 Patient has never smoked Exercise Type/Frequency Does not exercise Allergies, Adverse Reactions, Alerts Active Allergies Reaction Severity Comments Date Peanut Oil alaphylaxisis Severe 01/11/2019 Cipro 01/11/2019 Amoxicillin 01/11/2019 contrast Dye Hives Severe 01/11/2019 Cephalosporins Hives Severe 01/11/2019 Prednisone Hives, Tongue swelling Severe 01/11/2019 Methylprednisolone Hives, Tongue swelling Severe 01/11/2019 Sulfazine Abdominal pain, Diarrhea, Nausea 01/11/2019 Reglan tremor twitcing migraine 01/11/2019 Advair Diskus migraine, nausea, dizziness 01/11/2019 NSAIDs Hx stomach ulcers 01/11/2019 Medications Active Medications SIG Qnty Indications Ordering Date Provider Ventolin HFA 2 every 4 hours as 18gm R06.00 Ellis Garcia, 01/20/2019 needed 108(90Base) mcg/Act Aerosol Oxycodone-Acetamino 1 tab by mouth every 120tabs Betsy Lazo, 2018 phen 6 hours as needed DO 5-325mg for pain Tablets Oxycodone-Acetamino 1 tab by mouth every 120tabs Betsy Lazo, 2018 phen 6 hours as needed DO 5-325mg for pain Tablets Epipen 2-Arslan as needed 4units Z87.892 Betsy [facility] [place], 01/11/2019 DO 0.3mg/0.3ML Solution Auto-Inject Miralax twice a day as 119gm K59.00 [facility] [place], 01/11/2019 3350NF needed DO Powder Lactulose take 10 g three 237ml K59.00 Betsy [facility] [place], 01/11/2019 10GM/15ML times daily as DO Solution needed for constipation Tizanidine HCL take 2 tablets by 120tabs Alex Salter MD 12/31/2018 4mg mouth every 8 hours Tablets as needed for muscle spasm Tylenol 8 Hour take every 6 hours Unknown as needed for pain, 650mg Tablets ER headache or fever Hydroxyzine HCL 1 tablets by mouth 90tabs Betsy [facility], every 6-8 hours as DO 25mg Tablets needed for anxiety Klonopin 1 by mouth four 120tabs G40.89 Alex Salter MD 1mg times a day as Tablets needed Zofran one twice a day as 60tabs [facility], 8mg Tablets needed nausea DO Adderall 1 by mouth three x a 120tabs [facility], 20mg day as needed DO Tablets Ambien one by mouth at 30tabs [facility], 5mg Tablets bedtime as needed DO for sleep Fiorinal 2 tablet by mouth 90caps Betsy [facility] [place], every 4-6 hours as DO 50-325-40mg needed. Capsules Gabapentin take 3 cs by mouth 270caps Betsy [facility], 300mg three times a day DO Capsules History Medications Oxycodone-Acetaminophen 1 tab by 120tabs Betsy 12/15/2018 - 5-325mg Tablets mouth every 6 Senner, DO 12/15/2018 hours as needed for pain Oxycodone HCL take one 60tabs Betsy 12/14/2018 - 10mg Tablets twice a day Senner, DO 12/14/2018 as needed for pain Immunizations Description No Information Available Vital Signs Date Vital Result Comment 01/20/2019 8:28am Height 63 inches 5'3" Weight 119.00 lb Heart Rate 84 /min BP Systolic Sitting 98 mmHg Lue regular cuff BP Diastolic Sitting 70 mmHg Lue regular cuff Respiratory Rate 16 /min O2 % BldC Oximetry 98 % BMI (Body Mass Index) 21.1 kg/m2 Neck Circumference in inches 12.5 01/11/2019 1:21pm Height 63 inches 5'3" Weight 118.25 lb Heart Rate 96 /min BP Systolic 96 mmHg BP Diastolic 65 mmHg Body Temperature 97.4 F O2 % BldC Oximetry 99 % BMI (Body Mass Index) 20.9 kg/m2 Results Test Date Facility Test Result H/L Range Note Comp Metabolic 12/21/2018 [facility] Sodium 141 mmol/L Normal 135-145 Panel [address] [place] [address] [phone] Potassium 3.5 mmol/L Normal 3.5-5.0 Chloride 105 mmol/L Normal 101-111 Co2 Carbon Dioxide 29 mmol/L Normal 22-32 Anion Gap 7 mmol/L Normal 2-11 Glucose 91 mg/dL Normal 70-100 Blood Urea Nitrogen 11 mg/dL Normal 6-24 Creatinine 0.66 mg/dL Normal 0.51-0.95 BUN/Creatinine Ratio 16.7 Normal 8-20 Calcium 9.1 mg/dL Normal 8.6-10.3 Total Protein 6.8 g/dL Normal 6.4-8.9 Albumin 4.6 g/dL Normal 3.2-5.2 Globulin 2.2 g/dL Normal 2-4 Albumin/Globulin Ratio 2.1 Normal 1-3 Total Bilirubin 0.30 mg/dL Normal 0.2-1.0 Alkaline Phosphatase 116 U/L High 34-104 Alt 53 U/L High 7-52 Ast 34 U/L Normal 13-39 Egfr Non- 104.5 >60 Egfr 126.4 >60 1 Laboratory test 12/21/2018 [facility] Magnesium 1.7 mg/dL Low 1.9-2.7 finding [address] [place] [address] [phone] 1 Because ethnic data is not always readily available, this report includes an eGFR for both -Americans and non- Americans. The National Kidney Disease Education Program (NKDEP) does not endorse the use of the MDRD equation for patients that are not between the ages of 18 and 70, are , have extremes of body size, muscle mass, or nutritional status, or are non- or non-. According to the National Kidney Foundation, irrespective of diagnosis, the stage of the disease is based on the level of kidney function: Stage Description GFR(mL/min/1.73 m(2)) 1 Kidney damage with normal or decreased GFR 90 2 Kidney damage with mild decrease in GFR 60-89 3 Moderate decrease in GFR 30-59 4 Severe decrease in GFR 15-29 5 Kidney failure <15 (or dialysis) Procedures Date Code Description Status 12/08/2018 32792 Endoscopy Upper GI Biopsy Completed Medical Devices Description No Information Available Encounters Type Date Location Provider Dx Diagnosis Office Visit 12/14/2018 [facility] Betsy Lazo, 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, not elsewhere classified G90.8 Other disorders of autonomic nervous system K31.84 Gastroparesis G40.89 Other seizures G43.909 Migraine, unsp, not intractable, without status migrainosus Office Visit 12/09/2018 9:03a [facility] Britt R10.9 Unspecified Assoc,buffy Rodriguez PAFrankiC abdominal pain Hospitalists K31.84 Gastroparesis G90.8 Other disorders of autonomic nervous system Office Visit 12/08/2018 9:03a [facility] Britt R11.2 Nausea with Assoc,buffy Waters'cortney PAFrankiC vomiting, Hospitalists unspecified R94.5 Abnormal results of liver function studies R33.9 Retention of urine, unspecified Office Visit 12/08/2018 Surgical Petey Araujo R10.84 Generalized 7:00a [facility] MA[facility] Est[facility] abdominal pain Office Visit 12/07/2018 [facility] R11.2 Nausea with 8:55a Assoc,buffy Brown NP vomiting, Hospitalists unspecified R10.9 Unspecified abdominal pain R33.9 Retention of urine, unspecified R94.5 Abnormal results of liver function studies Office Visit 12/07/2018 7:00a Surgical Christiano Rodriguez R11.2 Nausea with Associates Of MD Mert vomiting, General Forecaster unspecified R94.5 Abnormal results of liver function studies K31.84 Gastroparesis Office Visit 12/06/2018 8:54a [facility] R33.9 Retention of Assoc,pc Shortle, NEURO PSYCH SALES SPECIALIST urine, Hospitalists unspecified R94.5 Abnormal results of liver function studies R11.2 Nausea with vomiting, unspecified Office Visit 12/06/2018 7:00a Surgical Christiano S. R11.2 Nausea with [facility] Of MD Mert vomiting, General Forecaster unspecified R94.5 Abnormal results of liver function studies R10.11 Right upper quadrant pain Office Visit 12/05/2018 8:54a [facility] R11.2 Nausea with Assoc,pc Shortle, NEURO PSYCH SALES SPECIALIST vomiting, Hospitalists unspecified G89.4 Chronic pain syndrome Office Visit 12/05/2018 7:00a Surgical Christiano S. K31.84 Gastroparesis [facility] Matthew Painting MD R11.2 Nausea with vomiting, unspecified Office Visit 12/04/2018 [facility] R11.2 Nausea with 8:53a Assoc,pc Pamella, NEURO PSYCH SALES SPECIALIST vomiting, Hospitalists unspecified R10.9 Unspecified abdominal pain G89.4 Chronic pain syndrome Assessments Date Code Description Provider 01/20/2019 R06.00 Dyspnea, unspecified Ellis Garcia MD 01/20/2019 J98.4 Other disorders of lung Ellis Garcia MD 01/11/2019 Z87.892 Personal history of anaphylaxis Betsy Lazo, DO 01/11/2019 G89.4 Chronic pain syndrome Betsy Lazo, DO 01/11/2019 K59.00 Constipation, unspecified Betsy Lazo, DO 12/14/2018 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, 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, 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 12/14/2018 G90.8 Other disorders of autonomic nervous Betsy Lazo, DO system 12/14/2018 K31.84 Gastroparesis Betsy Lazo, DO 12/14/2018 G40.89 Other seizures Betsy Lazo, DO 12/14/2018 G43.909 Migraine, unspecified, not intractable, Betsy Lazo, DO without status migrainosus 12/09/2018 R10.9 Unspecified abdominal pain Britt Rodriguez PA-C 12/09/2018 K31.84 Gastroparesis XIOMY LozanoC 12/09/2018 G90.8 Other disorders of autonomic nervous Britt Rodriguez PA-C system 12/08/2018 R10.11 Right upper quadrant pain Ramsey Teran MD 12/08/2018 R11.2 Nausea with vomiting, unspecified Britt Rodriguez PA-C 12/08/2018 A08.4 Viral intestinal infection, unspecified Ramsey Teran MD 12/08/2018 R10.84 Generalized abdominal pain Petey Perales, PA 12/08/2018 R11.2 Nausea with vomiting, unspecified Ramsey Teran MD 12/08/2018 R94.5 Abnormal results of liver function studies Britt Rodriguez PA-C 12/08/2018 R33.9 Retention of urine, unspecified Britt Rodriguez PA-C 12/07/2018 R11.2 Nausea with vomiting, unspecified Rosa M Shortle, NEURO PSYCH SALES SPECIALIST 12/07/2018 R11.2 Nausea with vomiting, unspecified Christiano Painting MD 12/07/2018 R10.9 Unspecified abdominal pain Rosa M Shortle, NEURO PSYCH SALES SPECIALIST 12/07/2018 R94.5 Abnormal results of liver function studies Christiano Painting MD 12/07/2018 R33.9 Retention of urine, unspecified Rosa M Shortle, NEURO PSYCH SALES SPECIALIST 12/07/2018 K31.84 Gastroparesis Christiano Painting MD 12/07/2018 R94.5 Abnormal results of liver function studies Rosa M Shortle , NEURO PSYCH SALES SPECIALIST 12/06/2018 R33.9 Retention of urine, unspecified Rosa M Shortle, NEURO PSYCH SALES SPECIALIST 12/06/2018 R94.5 Abnormal results of liver function studies Rosa M Shortle , NEURO PSYCH SALES SPECIALIST 12/06/2018 R11.2 Nausea with vomiting, unspecified Christiano Painting MD 12/06/2018 R11.2 Nausea with vomiting, unspecified Rosa M Shortle, NEURO PSYCH SALES SPECIALIST 12/06/2018 R94.5 Abnormal results of liver function studies Christiano Painting MD 12/06/2018 R10.11 Right upper quadrant pain Christiano Painting MD 12/05/2018 R11.2 Nausea with vomiting, unspecified Rosa Mishan Brown, DIONISIO 12/05/2018 K31.84 Gastroparesis Christiano Painting MD 12/05/2018 G89.4 Chronic pain syndrome Rosa M Kevin, DIONISIO 12/05/2018 R11.2 Nausea with vomiting, unspecified Christiano Painting MD 12/04/2018 R11.2 Nausea with vomiting, unspecified Carol Parnellney, NEURO PSYCH SALES SPECIALIST 12/04/2018 R10.9 Unspecified abdominal pain Carol Can, NEURO PSYCH SALES SPECIALIST 12/04/2018 G89.4 Chronic pain syndrome Carol Can, DIONISIO Plan of Treatment Future Appointment(s):04/02/2019 9:00 am - Sanket Cortes M.D. at [facility]/11/2019 - Betsy Lazo, DOZ87.892 Personal history of anaphylaxisNew Medication:Epipen 2-Arslan 0.3 mg/0.3ML - as dimuypS09.4 Chronic pain lqqgsuziD39.00 Constipation, unspecifiedNew Medication:Miralax 3350 NF - twice a day as neededLactulose 10 GM/15ML - take 10 g three times daily as needed for constipation Functional Status Description No Information Available Mental Status Description No Information Available Referrals Refer to Dr Reason for Referral Status Appt Date Yahir Vance, PHD nonepileptic seizures Sent [address] [place], [place] [id number] [phone] Adeline Robert MD Sent [address] [facility] [place] [address] [phone] Lavonne Howell MD Sent 01/15/2019 [address] [facility] [address] [place] [address] [phone] Ramsey Nelson Closed 01/21/2019 11 [facility] [address] [place], [place] [address] [phone] Cliff Garcia MD Sent [address] [place] [address] [phone] Petey Duong M.D. Sent 04/02/2019 [facility] [facility] [place] [address] [phone] Steven Keith MD Received Partial 12/29/[address] [place] [address] [phone] Sarkis Jones MD Called referral office, they did not recieve Sent anything, hand faxed 01/[address] [place] [address] [phone] Sharron aGrcia MD Received Partial [address] [place] [address] [phone] Yahir Vance, PHD Older referral, new one created 01/11 Sent [address] [place], [place] [address] [phone] Andrew Higgins MD Sent [address] [place] [address] [place] [address] [phone]
--- OUTSIDE RECORDS SUMMARY | 2019-01-26 18:34 | XMS REPORT | Continuity of Care Document ---
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 Problems Description No Information Available Social History Type Date Description Comments Sex Unknown Tobacco Use Start: Unknown Patient has never smoked Smoking Status Reviewed: 01/11/19 Patient has never smoked Allergies, Adverse Reactions, [...] Medications SIG Qnty Indications Ordering Date Provider Epipen 2-Arslan as needed 4units Z87.892 Betsy Lazo, 01/11/2019 DO 0.3mg/0.3ML Solution Auto-Inject Miralax twice a day as 119gm K59.00 Betsy Lazo, 01/11/2019 3350NF needed DO Powder Lactulose take 10 g three 237ml K59.00 Betsy Lazo, 01/11/2019 10GM/15ML times daily as DO Solution needed for constipation Tizanidine HCL take 2 tablets by 120tabs Alex Salter MD 12/31/2018 4mg mouth every 8 hours Tablets as needed for muscle spasm Gabapentin take 3 cs by mouth 270caps Betsy Senner, 300mg three times a day DO Capsules Fiorinal 2 tablet by mouth 90caps Betsy Senner, every 4-6 hours as DO 50-325-40mg needed. Capsules Ambien one by mouth at 30tabs Betsy Senner, 5mg Tablets bedtime as needed DO for sleep Adderall 1 by mouth three x a 120tabs Betsy Senner, 20mg day as needed DO Tablets Zofran one twice a day as 60tabs Betsy Senner, 8mg Tablets needed nausea DO Klonopin 1 by mouth four 120tabs G40.89 Alex Salter MD 1mg times a day as Tablets needed Hydroxyzine HCL 1 tablets by mouth 90tabs Betsy Senner, every 6-8 hours as DO 25mg Tablets needed for anxiety History Medications Oxycodone-Acetaminophen 1 tab by 120tabs Betsy 12/15/2018 - 5-325mg Tablets mouth every 6 Senner, DO 12/15/2018 hours as needed for pain Oxycodone HCL take one 60tabs Betsy 12/14/2018 - 10mg Tablets twice a day Senner, DO 12/14/2018 as needed for pain Immunizations Description No Information Available Vital Signs Date Vital Result Comment 01/11/2019 1:21pm Height 63 inches 5'3" Weight 118.25 lb Heart Rate 96 /min BP Systolic 96 mmHg BP Diastolic 65 mmHg Body Temperature 97.4 F O2 % BldC Oximetry 99 % BMI (Body Mass Index) 20.9 kg/m2 12/14/2018 10:40am Height 63 inches 5'3" Weight 114.00 lb Heart Rate 102 /min BP Systolic 149 mmHg BP Diastolic 111 mmHg Body Temperature 99.4 F O2 % BldC Oximetry 96 % BMI (Body Mass Index) 20.2 kg/m2 Results Test Date Facility Test Result H/L Range Note Comp Metabolic 12/21/2018 [facility] Sodium 141 mmol/L Normal 135-[address] [place] [address] [phone] Potassium 3.5 mmol/L Normal 3.5-5.0 Chloride 105 [...] Egfr 126.4 >60 1 Laboratory test 12/21/2018 [facility] Magnesium 1.7 mg/dL Low 1.9-2.7 finding [address] [place] [address] [phone] 1 Because ethnic data is not always [...] dialysis) Procedures Date Code Description Status 12/08/2018 71970 Endoscopy Upper GI Biopsy Completed Medical Devices Description No Information Available Encounters Type Date Location Provider Dx Diagnosis Office Visit 01/11/2019 [facility] Betsy Lazo, Z87.892 Personal history of 1:20p Medicine - Suite DO anaphylaxis R G89.4 Chronic pain syndrome K59.00 Constipation, unspecified Office Visit 12/14/2018 10:20a Chemical Test Engineer Internal Betsy 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, 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, not elsewhere classified G90.8 Other disorders of autonomic nervous system K31.84 Gastroparesis G40.89 Other seizures G43.909 Migraine, unsp, not intractable, without status migrainosus Office Visit 12/09/2018 9:03a [facility] Britt R10.9 Unspecified Assoc,pc O'cortney, PA-C abdominal pain Hospitalists K31.84 Gastroparesis G90.8 Other disorders of autonomic nervous system Office Visit 12/08/2018 9:03a [facility] Britt R11.2 Nausea with Assoc,pc O'cortney, PA-C vomiting, Hospitalists unspecified R94.5 Abnormal results of liver function studies R33.9 Retention of urine, unspecified Office Visit 12/08/2018 Surgical Petey Araujo R10.84 Generalized 7:00a [facility] Chemical Test Engineer Perales, PA abdominal pain Office Visit 12/07/2018 [facility] R11.2 Nausea with 8:55a Assoc,pc Shortle, UPTWIST SPINNER vomiting, Hospitalists unspecified R10.9 Unspecified abdominal pain R33.9 Retention of urine, unspecified R94.5 Abnormal results of liver function studies Office Visit 12/07/2018 7:00a Surgical Christiano S. R11.2 Nausea with Associates Of MD Mert vomiting, Chemical Test Engineer unspecified R94.5 Abnormal results of liver function studies K31.84 Gastroparesis Office Visit 12/06/2018 8:54a [facility] R33.9 Retention of Assoc,pc Shortle, UPTWIST SPINNER urine, Hospitalists unspecified R94.5 Abnormal results of liver function studies R11.2 Nausea with vomiting, unspecified Office Visit 12/06/2018 7:00a Surgical Christiano S. R11.2 Nausea with [facility] MD Mert vomiting, Chemical Test Engineer unspecified R94.5 Abnormal results of liver function studies R10.11 Right upper quadrant pain Office Visit 12/05/2018 8:54a [facility] R11.2 Nausea with Assoc,pc Shortle, UPTWIST SPINNER vomiting, Hospitalists unspecified G89.4 Chronic pain syndrome Office Visit 12/05/2018 7:00a Surgical Christiano S. 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, not Betsy Sencandice, 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 12/14/2018 G90.8 Other disorders of autonomic nervous Betsy Lazo, system 12/14/2018 K31.84 Gastroparesis Betsy Lazo, DO 12/14/2018 G40.89 Other seizures Betsy Lazo, DO 12/14/2018 G43.909 Migraine, unspecified, not intractable, Betsy Lazo, DO without status migrainosus 12/09/2018 R10.9 Unspecified abdominal pain Britt Rodriguez PA-C 12/09/2018 K31.84 Gastroparesis Britt Rodriguez PA-C 12/09/2018 G90.8 Other disorders of autonomic nervous Britt Rodriguez PA-C system 12/08/2018 R10.11 Right upper quadrant pain Ramsey Teran MD 12/08/2018 R11.2 Nausea with vomiting, unspecified Britt Rodriguez PA-C 12/08/2018 A08.4 Viral intestinal infection, unspecified Ramsey Teran MD 12/08/2018 R10.84 Generalized abdominal pain MAIK Venegas 12/08/2018 R11.2 Nausea with vomiting, unspecified Ramsey Teran MD 12/08/2018 R94.5 Abnormal results of liver function studies Britt Rodriguez PA-C 12/08/2018 R33.9 Retention of urine, unspecified Britt Rodriguez PA-C 12/07/2018 R11.2 Nausea with vomiting, unspecified Rosa M Shortle, UPTWIST SPINNER 12/07/2018 R11.2 Nausea with vomiting, unspecified Christiano Painting MD 12/07/2018 R10.9 Unspecified abdominal pain Rosa M Shortle, UPTWIST SPINNER 12/07/2018 R94.5 Abnormal results of liver function studies Christiano Painting MD 12/07/2018 R33.9 Retention of urine, unspecified Rosa M Shortle, UPTWIST SPINNER 12/07/2018 K31.84 Gastroparesis Christiano Painting MD 12/07/2018 R94.5 Abnormal results of liver function studies Rosa M Shortle , UPTWIST SPINNER 12/06/2018 R33.9 Retention of urine, unspecified Rosa M Shortle, UPTWIST SPINNER 12/06/2018 R94.5 Abnormal results of liver function studies Rosa M Shortle , UPTWIST SPINNER 12/06/2018 R11.2 Nausea with vomiting, unspecified Christiano Painting MD 12/06/2018 R11.2 Nausea with vomiting, unspecified Rosa M Shortle, UPTWIST SPINNER 12/06/2018 R94.5 Abnormal results of liver function studies Christiano Painting MD 12/06/2018 R10.11 Right upper quadrant pain Christiano Painting MD 12/05/2018 R11.2 Nausea with vomiting, unspecified Rosa M Shortle, UPTWIST SPINNER 12/05/2018 K31.84 Gastroparesis Christiano Painting MD 12/05/2018 G89.4 Chronic pain syndrome Rosa M Shortle, UPTWIST SPINNER 12/05/2018 R11.2 Nausea with vomiting, unspecified Christiano Painting MD 12/04/2018 R11.2 Nausea with vomiting, unspecified Carol Seabeck, UPTWIST SPINNER 12/04/2018 R10.9 Unspecified abdominal pain Carol Can, UPTWIST SPINNER 12/04/2018 G89.4 Chronic pain syndrome Carol Can, DIONISIO Plan of Treatment Future Appointment(s):01/15/2019 1:40 pm - Ellis Garcia MD [facility]04/02/2019 9:00 am - Sanket Cortes M.D. at [facility]01/11/2019 - Betsy Lazo, Z87.892 Personal history of anaphylaxisNew Medication:Epipen 2-Arslan 0.3 mg/0.3ML - as oeoraiH53.4 Chronic pain ihvkvotkU56.00 Constipation, unspecifiedNew Medication:Miralax 3350 NF - twice a day as neededLactulose 10 GM/15ML - take 10 g three times daily as needed for constipation Functional Status Description No Information Available Mental Status Description No Information Available Referrals Refer to Dr Reason for Referral Status Appt Date Yahir Vance, PHD nonepileptic seizures Created [address] [place] [address] [phone] Adeline Robert MD Sent [address] [facility], [place] [address] [phone] Lavonne Howell MD Sent 01/15/[address] [place] [address] [phone] Ramsey Nelson Sent 11 [facility] [address] [place], [place] [address] [phone] Cliff Garcia MD Sent [address] [place] [address] [phone] Petey Duong M.D. Sent 04/02/2019 [address] [place] [address] [place] [address] [phone] Steven Keith MD Received Partial 12/29/2018 [address] [place], [place] [address] [phone] Sarkis Jones MD Sent [address] [facility] [address] [place], [place] [address] [phone] Sharron Garcia MD Received Partial 90 [facility] [address] [place] [address] [phone] Yahir Vance, PHD Older referral, new one created 01/11 Sent [address] [place], [place] [address] [phone] Andrew Higgins MD Sent [address] [place] [address] [phone]
--- OUTSIDE RECORDS SUMMARY | 2019-01-26 18:34 | XMS REPORT | Continuity of Care Document ---
:1985 External Reference #:[id number] Author Name Azul Trujillo M.D. Address [address] [facility] [address] [place] [address] Care Team Providers Name Role Phone Betsy Lazo MD Care Team Information Chef & Owner [phone] Cherelle Duarte DO - Emergency Medicine Care Team Information Chef & Owner [phone] Problems Description No Information Available Social History Type Date Description Comments Sex Unknown Tobacco Use Start: Unknown Patient has never smoked Smoking Status Reviewed: 12/25/18 Patient has never smoked Allergies, Adverse Reactions, [...] Medications Active Medications SIG Qnty Indications Ordering Provider Date Clonazepam Unknown 1mg Tablets Oxycodone-Acetaminoph TK 1 T PO Q 6 H Unknown en PRF Pain. MDD 4 5-325mg Tablets Emxlzmugbi-Bkjwprg-Gz TK 2 CS PO Q 4 To Unknown ffeine 6 H as Needed. MDD 50-325-40mg 6 CS Capsules Amphetamine-Dextroamp Unknown hetamine 20mg Tablets Oxycodone HCL Unknown 10mg Tablets Zolpidem Tartrate take 1 tablet by Unknown 5mg mouth at bedtime Tablets if needed for Sleep maximum daily dose of 1 Ondansetron HCL TK 1 T PO bid PRF Unknown 8mg Nausea Tablets Gabapentin TK 3 CS PO tid Unknown 300mg Capsules Linzess 1 cap by mouth Unknown 145mcg Capsules every night, hold for unformed bm Immunizations Description No Information Available Vital Signs Date Vital Result Comment 01/05/2019 1:31pm BP Systolic 134 mmHg BP Diastolic 86 mmHg Body Temperature 98.7 F Heart Rate 125 /min Respiratory Rate 16 /min Weight 112.12 lb O2 % BldC Oximetry 95 % Pain Level 0 Results Description No Information Available Procedures Description No Information Available Medical Devices Description No Information Available Encounters Type Date Location Provider Dx Diagnosis Office Visit 01/05/2019 1:15p Urology Azul Trujillo M.D. R34 Anuria and oliguria Assessments Date Code Description Provider 01/05/2019 R34 Anuria and oliguria Azul Trujillo M.D. 12/04/2018 K56.600 Partial intestinal obstruction, John Vazquez MD,FACS unspecified as to cause 12/04/2018 Z87.19 Personal history of other diseases of the John Vazquez MD,FACS digestive system Plan of Treatment Future Appointment(s):01/21/2019 2:00 pm - Azul Trujillo M.D. at [id number] 1:15 pm - Azul Trujillo M.D. at [facility]/01/2019 - Azul Trujillo M.D.R34 Anuria and oliguriaComments:Patient reports that she hasn't voided since yesterday and when we catheterizes her only obtained 150 cc. This means that the patient does have oliguria. I would like this to be further evaluated byher medical doctor. I told the patient that she is not making enough urine to generate enough bladder pressure or to void on her own normaly. I did show her how to self catheterizing in case she could not urinate at all. I will order a renal ultrasound to assess for any hydronephrosis. Patient will be scheduled for urodynamics to assess bladder function and to rule out neurogenic bladder. We will schedule her for cystoscopy. I also encouraged the patient discussed with her neurologist possiblemultiple sclerosis given that she reports some weakness in her left side combined with possible neurogenic bladder and her gastroparesis. Functional Status Description No Information Available Mental Status Description No Information Available Referrals Description No Information Available
--- OUTSIDE RECORDS SUMMARY | 2019-01-26 18:34 | XMS REPORT | Continuity of Care Document ---
:1985 External Reference #:[id number] Author Name Alda Hall PA-C Address [address] [place] [address] Care Team Providers Name Role Phone Betsy Lazo D.O Care Team Information Bag Grader [phone] Problems Active Problems Provider Date Loss of appetite Alda Hall PA-C Onset: 12/29/2018 Weight decreased Alda Hall PA-C Onset: 12/29/2018 Elevated levels of transaminase & lactic Alda Hall PA-C Onset: acid dehydrogenase Slow transit constipation Alda Hall PA-C Onset: 12/29/2018 Generalized abdominal pain Alda Hall PA-C Onset: 12/29/2018 Nausea Alda Hall PA-C Onset: 12/29/2018 Social History Type Date Description Comments Sex Unknown Tobacco Use Start: Unknown Patient has never smoked Smoking Status Reviewed: 12/29/18 Patient has never smoked Allergies, Adverse Reactions, Alerts Active Allergies Reaction Severity Comments Date Amoxicillin 12/29/2018 Penicillin 12/29/2018 Keflex 12/29/2018 Cipro 12/29/2018 Prednisone 12/29/2018 Sulfa 12/29/2018 Reglan 12/29/2018 IV Contrast 12/29/2018 Shellfish 12/29/2018 NSAIDS 12/29/2018 Levaquin 12/29/2018 Medications Active Medications SIG Qnty Indications Ordering Provider Date Gabapentin TK 3 CS PO tid Unknown 300mg Capsules Oxycodone HCL TK 1 T PO Q 6 H - Unknown 5mg MDD 4 TS Tablets Fiorinal 2 tablet by mouth 90caps Betsy Lazo 50-325-40mg every 4-6 hours D.O Capsules as needed. Ambien one by mouth at 30tabs Betsy Lazo 5mg Tablets bedtime as needed D.O for sleep Adderall 1 by mouth three Unknown 20mg Tablets x a day as needed Zofran one twice a day 60tabs Senner, Betsy 8mg Tablets as needed nausea D.O Tizanidine HCL two by mouth Unknown 4mg every 8 hours as Capsules needed muscle spasms Klonopin 1 by mouth twice Unknown 1mg Tablets a day Hydroxyzine HCL 1 tablets by Unknown 25mg mouth every 6-8 Tablets hours as needed for anxiety Immunizations Description No Information Available Vital Signs Date Vital Result Comment 12/29/2018 2:11pm Height 63 inches 5'3" Weight 112.00 lb BP Systolic 131 mmHg BP Diastolic 94 mmHg Heart Rate 120 /min BMI (Body Mass Index) 19.8 kg/m2 Results Test Date Facility Test Result H/L Range Note Ua Microscopic(!) 12/09/2018 [facility] WBC <pending> Ua RBC <pending> [facility]a Epithelial Cells <pending> Ua Crystals <pending> [facility] Bacteria <pending> Ua Mucous <pending> Ua Amorphous <pending> Ua Yeast <pending> [facility]a Casts <pending> BMP W/O Egfr(!) 12/09/2018 [facility] Sodium(!) <pending> Potassium(!) <pending> Chloride Serum/Plasma(!) <pending> Carbon Dioxide Ser/Plasm(!) <pending> BUN - Urea Nitrogen(!) <pending> Calcium Ser/Plasma Mass/Vol(!) <pending> Creatinine Serum Mass/Vol(!) <pending> Glucose Serum(!) <pending> CMP(!) 12/09/2018 [facility] Sodium(!) <pending> Potassium(!) <pending> Chloride Serum/Plasma(!) <pending> Carbon Dioxide Ser/Plasm(!) <pending> BUN - Urea Nitrogen(!) <pending> Calcium Ser/Plasma Mass/Vol(!) <pending> Creatinine Serum Mass/Vol(!) <pending> Glucose Serum(!) <pending> BUN/Creatinine Ratio(!) <pending> Albumin Serum/Plasma(!) <pending> Alkaline Phosphatase(!) <pending> Bilirubin Total Mass/Vol(!) <pending> Ast - Sgot <pending> Alt - SGPT <pending> Protein Total <pending> CBC W/Auto 12/09/2018 [facility] White Blood <pending> Differential(!) Count Ser Auto CNT RBC Red Blood Count <pending> Hemoglobin Blood <pending> Hematocrit <pending> MCV (Corpuscular Volume) <pending> MCH (Corpuscular Hemoglobin) <pending> MCHC (Corpuscular Hemog Conc) <pending> RDW <pending> Platelet Count Blood Auto CNT <pending> MPV <pending> Lymph% <pending> [place]% <pending> Neutrophil % <pending> Absolute Lymphocytes <pending> Absolute Monocytes <pending> Absolute Neutrophils <pending> Laboratory test 12/08/2018 [facility] Clotest <pending> finding CMP(!) 12/08/2018 [facility] Sodium(!) <pending> mEq/L 134-14 [address] [facility] [address] [place] [address] [phone] Potassium(!) <pending> mEq/L 3.6-5.5 Chloride Serum/Plasma(!) <pending> mEq/L 94-112 Carbon Dioxide Ser/Plasm(!) <pending> mEq/L 21-33 BUN - Urea Nitrogen(!) <pending> mg/dL 6-24 Calcium Ser/Plasma Mass/Vol(!) <pending> mg/dL 8.6-10.2 Creatinine Serum Mass/Vol(!) <pending> mg/dL 0.5-1.4 Glucose Serum(!) <pending> mg/dL 70-105 BUN/Creatinine Ratio(!) <pending> RATIO 8.0-36 Albumin Serum/Plasma(!) <pending> g/dL 3.5-5.2 Alkaline Phosphatase(!) <pending> U/L 39-117 Bilirubin Total Mass/Vol(!) <pending> mg/dL 0.2-1.3 Ast - Sgot <pending> U/L 5-34 Alt - SGPT <pending> U/L 10-40 Protein Total <pending> g/dL 6.2-8.1 Laboratory test 12/08/2018 [facility] C-Reative <pending> <5.0 finding [facility] [place] [address] [phone] CBC W/Auto 12/07/2018 [facility] White Blood <pending> Differential(!) Count Ser Auto CNT RBC Red Blood Count <pending> Hemoglobin Blood <pending> Hematocrit <pending> MCV (Corpuscular Volume) <pending> MCH (Corpuscular Hemoglobin) <pending> MCHC (Corpuscular Hemog Conc) <pending> RDW <pending> Platelet Count Blood Auto CNT <pending> MPV <pending> Lymph% <pending> [place]% <pending> Neutrophil % <pending> Absolute Lymphocytes <pending> Absolute Monocytes <pending> Absolute Neutrophils <pending> Laboratory test 12/07/2018 [facility] Lipase Ser/Plas (!) <pending> finding CMP(!) 12/07/2018 [facility] Sodium(!) <pending> Potassium(!) <pending> Chloride Serum/Plasma(!) <pending> Carbon Dioxide Ser/Plasm(!) <pending> BUN - Urea Nitrogen(!) <pending> Calcium Ser/Plasma Mass/Vol(!) <pending> Creatinine Serum Mass/Vol(!) <pending> Glucose Serum(!) <pending> BUN/Creatinine Ratio(!) <pending> Albumin Serum/Plasma(!) <pending> Alkaline Phosphatase(!) <pending> Bilirubin Total Mass/Vol(!) <pending> Ast - Sgot <pending> Alt - SGPT <pending> Protein Total <pending> Hepatitis Acute PNL 12/07/2018 [facility] Hepatitis A Igm AB <pending > (CMC) QN Ser Eia Hepatitis B Core AB Igm Ser QN <pending> Hepatitis B Surface Ag <pending> Hepatitis C AB Ser QN Eia <pending> Ua Microscopic(!) 12/06/2018 [facility] WBC <pending> Ua RBC <pending> Ua Epithelial Cells <pending> Ua Crystals <pending> Ua Bacteria <pending> Ua Mucous <pending> Ua Amorphous <pending> Ua Yeast <pending> Ua Casts <pending> CMP(!) 12/06/2018 [facility] Sodium(!) <pending> Potassium(!) <pending> Chloride Serum/Plasma(!) <pending> Carbon Dioxide Ser/Plasm(!) <pending> BUN - Urea Nitrogen(!) <pending> Calcium Ser/Plasma Mass/Vol(!) <pending> Creatinine Serum Mass/Vol(!) <pending> Glucose Serum(!) <pending> BUN/Creatinine Ratio(!) <pending> Albumin Serum/Plasma(!) <pending> Alkaline Phosphatase(!) <pending> Bilirubin Total Mass/Vol(!) <pending> Ast - Sgot <pending> Alt - SGPT <pending> Protein Total <pending> CBC W/Auto 12/06/2018 [facility] White Blood <pending> Differential(!) Count Ser Auto CNT RBC Red Blood Count <pending> Hemoglobin Blood <pending> Hematocrit <pending> MCV (Corpuscular Volume) <pending> MCH (Corpuscular Hemoglobin) <pending> MCHC (Corpuscular Hemog Conc) <pending> RDW <pending> Platelet Count Blood Auto CNT <pending> MPV <pending> Lymph% <pending> [place]% <pending> Neutrophil % <pending> Absolute Lymphocytes <pending> Absolute Monocytes <pending> Absolute Neutrophils <pending> CMP(!) 12/04/2018 [facility] Sodium(!) <pending> Potassium(!) <pending> Chloride Serum/Plasma(!) <pending> Carbon Dioxide Ser/Plasm(!) <pending> BUN - Urea Nitrogen(!) <pending> Calcium Ser/Plasma Mass/Vol(!) <pending> Creatinine Serum Mass/Vol(!) <pending> Glucose Serum(!) <pending> BUN/Creatinine Ratio(!) <pending> Albumin Serum/Plasma(!) <pending> Alkaline Phosphatase(!) <pending> Bilirubin Total Mass/Vol(!) <pending> Ast - Sgot <pending> Alt - SGPT <pending> Protein Total <pending> CBC W/Auto 12/04/2018 [facility] White Blood <pending> Differential(!) Count Ser Auto CNT RBC Red Blood Count <pending> Hemoglobin Blood <pending> Hematocrit <pending> MCV (Corpuscular Volume) <pending> MCH (Corpuscular Hemoglobin) <pending> MCHC (Corpuscular Hemog Conc) <pending> RDW <pending> Platelet Count Blood Auto CNT <pending> MPV <pending> Lymph% <pending> [place]% <pending> Neutrophil % <pending> Absolute Lymphocytes <pending> Absolute Monocytes <pending> Absolute Neutrophils <pending> Procedures Description No Information Available Medical Devices Description No Information Available Encounters Description No Information Available Assessments Date Code Description Provider 12/29/2018 R11.0 Nausea Alda Hall PA-C 12/29/2018 R10.84 Generalized abdominal pain Alda Hall PA-C 12/29/2018 K59.01 Slow transit constipation Alda Hall PA-C 12/29/2018 R74.0 Nonspecific elevation of levels of MAIK Kamara transaminase and lactic acid dehydrogenase [LDH] 12/29/2018 R63.4 Abnormal weight loss Alda Hall PA-C 12/29/2018 R63.0 Anorexia Alda Hall PA-C 12/06/2018 R11.2 Nausea with vomiting, unspecified Steven Keith MD 12/06/2018 R10.9 Unspecified abdominal pain Steven Keith MD Plan of Treatment Future Appointment(s):01/28/2019 1:00 pm - Alda Hall PA-C at [facility]12/29/2018 - XIOMY Kamara CR11.0 NauseaNew Xrays:Gastric Emptying Study, Ordered: 12/29/18R10.84 Generalized abdominal painNew Labs:CBC Auto Diff, Ordered: 12/29/18Comp Metabolic Panel, Ordered: 12/29/18Erythrocyte Sed Rate, Ordered: 12/29/18C Reactive Protein, Ordered: 12/29/18K59.01 Slow transit evrjleammcdhO94.0 Nonspecific elevation of levels of transaminase and lactic acid dehydrogenase [ LDH]R63.4 Abnormal weight lossR63.0 Anorexia Functional Status Description No Information Available Mental Status Description No Information Available Referrals Description No Information Available
--- OUTSIDE RECORDS SUMMARY | 2019-01-26 18:34 | XMS REPORT | Continuity of Care Document ---
:1985 External Reference #:[id number] Author Care Team Providers Name Role Phone Betsy Lazo D.O Care Team Information Supervisor [employer] [phone] Problems Active Problems Provider Date Loss of [...] Medications SIG Qnty Indications Ordering Provider Date Port Flush Per patient to have Steven Keith, 01/20/2019 Protocol blood work done MD AT [facility] infusion center followed by port flush Gabapentin TK 3 CS PO tid Unknown 300mg Capsules Oxycodone HCL TK 1 T PO Q 6 H - Unknown 5mg MDD 4 TS Tablets Fiorinal 2 tablet by mouth 90caps Betsy Laoz 50-325-40mg every 4-6 hours D.O Capsules as [...] 6-8 Tablets hours as needed for anxiety History Medications Port Flush patient to have blood Setven Keith MD 01/15/2019 - 01/20 work done at [facility] infusion center followed by port flush Immunizations Description No Information Available Vital Signs Date Vital Result Comment 12/29/2018 2:11pm Height 63 inches 5'3" Weight 112.00 lb BP Systolic 131 mmHg BP Diastolic 94 mmHg Heart Rate 120 /min BMI (Body Mass Index) 19.8 kg/m2 Results Test Date Facility Test Result H/L Range Note CBC Auto Diff 01/20/2019 [facility] White Blood Count 7.8 10^3/uL Normal 3.5- 10.8 Red Blood Count 3.76 10^6/uL Normal 3.70-4.87 Hemoglobin 12.1 g/dL Normal 12.0-16.0 Hematocrit 35 % Normal 35-47 Mean Corpuscular Volume 93 fL Normal 80-97 Mean Corpuscular Hemoglobin 32 pg High 27-31 Mean Corpuscular HGB Conc 35 g/dL Normal 31-36 Red Cell Distribution Width 15 % Normal 10-15 Platelet Count 241 10^3/uL Normal 150-450 Mean Platelet Volume 9.5 fL Normal 7.4-10.4 Abs Neutrophils 4.8 10^3/uL Normal 1.5-7.7 Abs Lymphocytes 1.8 10^3/uL Normal 1.0-4.8 Abs Monocytes 0.8 10^3/uL Normal 0-0.8 Abs Eosinophils 0.3 10^3/uL Normal 0-0.6 Abs Basophils 0.1 10^3/uL Normal 0-0.2 Abs Nucleated RBC 0.0 10^3/uL Granulocyte % 61.3 % Lymphocyte % 23.6 % Monocyte % 10.0 % Eosinophil % 4.1 % Basophil % 1.0 % Nucleated Red Blood Cells % 0.0 Comp Metabolic Panel 01/20/2019 [facility] Sodium 138 mmol/L Normal 135-145 Potassium 3.3 mmol/L Low 3.5-5.0 Chloride 102 mmol/L Normal 101-111 Co2 Carbon Dioxide 29 mmol/L Normal 22-32 Anion Gap 7 mmol/L Normal 2-11 Glucose 98 mg/dL Normal 70-100 Blood Urea Nitrogen 13 mg/dL Normal 6-24 Creatinine 0.78 mg/dL Normal 0.51-0.95 BUN/Creatinine Ratio 16.7 Normal 8-20 Calcium 8.9 mg/dL Normal 8.6-10.3 Total Protein 6.5 g/dL Normal 6.4-8.9 Albumin 4.2 g/dL Normal 3.2-5.2 Globulin 2.3 g/dL Normal 2-4 Albumin/Globulin Ratio 1.8 Normal 1-3 Total Bilirubin 0.30 mg/dL Normal 0.2-1.0 Alkaline Phosphatase 115 U/L High 34-104 Alt 26 U/L Normal 7-52 Ast 32 U/L Normal 13-39 Egfr Non- 86.1 >60 Egfr 104.2 >60 1 Laboratory test finding 01/20/2019 [facility] Erythrocyte Sed Rate 6 mm/Hr Normal 0-19 C Reactive Protein 1.79 mg/L Normal <8.01 Ua Microscopic(!) 12/09/2018 [facility] WBC [...] Auto CNT <pending> MPV <pending> Lymph% <pending> [place]% <pending> Neutrophil % <pending> Absolute Lymphocytes <pending> Absolute Monocytes <pending> Absolute Neutrophils <pending> CMP(!) 12/08/2018 [facility] Sodium(!) <pending> mEq/L 090-413 [address] [place] [address] [phone] Potassium(!) <pending> mEq/L 3.6-5.5 Chloride Serum/Plasma(!) <pending> [...] 12/08/2018 [facility] C-Reative <pending> <5.0 finding [facility] [place] [address] [phone] CBC W/Auto 12/07/2018 [facility] White Blood <pending> Differential(!) Count Ser Auto CNT RBC Red Blood Count <pending> Hemoglobin Blood <pending> Hematocrit <pending> MCV (Corpuscular Volume) <pending> MCH (Corpuscular Hemoglobin) <pending> MCHC (Corpuscular Hemog Conc) <pending> RDW <pending> Platelet Count Blood Auto CNT <pending> MPV <pending> Lymph% <pending> [place]% <pending> Neutrophil % <pending> Absolute Lymphocytes <pending> [...] Auto CNT <pending> MPV <pending> Lymph% <pending> [place]% <pending> Neutrophil % <pending> Absolute Lymphocytes <pending> [...] Auto CNT <pending> MPV <pending> Lymph% <pending> [place]% <pending> Neutrophil % <pending> Absolute Lymphocytes <pending> Absolute Monocytes <pending> Absolute Neutrophils <pending> 1 Because ethnic data is not always [...] 5 Kidney failure <15 (or dialysis) Procedures Description No Information Available Medical Devices Description No Information Available Encounters Description No Information Available Assessments Date Code Description Provider 12/29/2018 R11.0 Nausea Alda Hall PA-C 12/29/2018 R10.84 Generalized abdominal pain Alda Hall PA-C 12/29/2018 K59.01 Slow transit constipation lAda Hall PA-C 12/29/2018 R74.0 Nonspecific elevation of levels of MAIK Kamara transaminase and lactic acid dehydrogenase [LDH] 12/29/2018 R63.4 Abnormal weight loss Alda Hall PA-C 12/29/2018 R63.0 Anorexia Alda Hall PA-C 12/07/2018 R11.2 Nausea with vomiting, unspecified Steven Keith MD 12/06/2018 R11.2 Nausea with vomiting, unspecified Steven Keith MD 12/06/2018 R10.9 Unspecified abdominal pain Steven Keith MD Plan of Treatment Future Appointment(s):01/28/2019 1:00 pm - Alda Hall PA-C at [facility]12/29/2018 - XIOMY Kamara CR11.0 DawcgzE27.84 Generalized abdominal painK59.01 Slow transit enghooatlopjE26.0 Nonspecific elevation of levels of transaminase and lactic acid dehydrogenase [LDH]R63.4 Abnormal weight lossR63.0 Anorexia Functional Status Description No Information Available Mental Status Description No Information Available Referrals Description No Information Available
--- OUTSIDE RECORDS SUMMARY | 2019-01-26 18:34 | XMS REPORT | Continuity of Care Document ---
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 Problems Description No Information Available Social History [...] Result H/L Range Note Comp Metabolic 12/21/2018 [facility] Sodium 141 mmol/L Normal 135-[address] [place] [address] [phone] Potassium 3.5 mmol/L Normal 3.5-5.0 Chloride 105 [...] Egfr 126.4 >60 1 Laboratory test 12/21/2018 [facility] Magnesium 1.7 mg/dL Low 1.9-2.7 [address] [place] [address] [phone] 1 Because ethnic data is not always [...] dialysis) Procedures Date Code Description Status 12/08/2018 [address]645 Endoscopy Upper GI Biopsy Completed Medical Devices Description No Information Available Encounters Type Date Location Provider Dx Diagnosis Office Visit 01/11/2019 [facility] Betsy Lazo, Z87.892 Personal history of 1:20p Medicine - Suite DO anaphylaxis R G89.4 Chronic pain syndrome K59.00 Constipation, unspecified Office Visit 12/14/2018 10:20a [facility] Betsy 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, 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, not elsewhere classified G90.8 Other disorders of autonomic nervous system K31.84 Gastroparesis G40.89 Other seizures G43.909 Migraine, unsp, not intractable, without status migrainosus Office Visit 12/09/2018 9:03a [facility] Britt R10.9 Unspecified Assoc,pc O'cortney, PA-C abdominal pain Hospitalists K31.84 Gastroparesis G90.8 Other disorders of autonomic nervous system Office Visit 12/08/2018 9:03a [facility] Britt R11.2 Nausea with Assoc,pc O'cortney, PA-C vomiting, Hospitalists unspecified R94.5 Abnormal results of liver function studies R33.9 Retention of urine, unspecified Office Visit 12/08/2018 [facility] Petey Araujo R10.84 Generalized 7:00a [facility] Hand Perales, PA abdominal pain Office Visit 12/07/2018 [facility] R11.2 Nausea with 8:55a Assoc,pc Shortle, ACCOUNT SERVICES ASSOCIATE vomiting, Hospitalists unspecified R10.9 Unspecified abdominal pain R33.9 Retention of urine, unspecified R94.5 Abnormal results of liver function studies Office Visit 12/07/2018 7:00a Surgical Christiano S. R11.2 Nausea with Associates Of MD Mert vomiting, Garment Sewer Hand unspecified R94.5 Abnormal results of liver function studies K31.84 Gastroparesis Office Visit 12/06/2018 8:54a [facility] R33.9 Retention of Assoc,pc Shortle, ACCOUNT SERVICES ASSOCIATE urine, Hospitalists unspecified R94.5 Abnormal results of liver function studies R11.2 Nausea with vomiting, unspecified Office Visit 12/06/2018 7:00a Surgical Christiano S. R11.2 Nausea with [facility] Of MD Mert vomiting, Garment Sewer Hand unspecified R94.5 Abnormal results of liver function studies R10.11 Right upper quadrant pain Office Visit 12/05/2018 8:54a [facility] R11.2 Nausea with Assoc,pc Shortle, ACCOUNT SERVICES ASSOCIATE vomiting, Hospitalists unspecified G89.4 Chronic pain syndrome Office Visit 12/05/2018 7:00a Surgical Christiano S. K31.84 Gastroparesis Associates Of Matthew Painting MD R11.2 Nausea with vomiting, unspecified Office Visit 12/04/2018 [facility] R11.2 Nausea with 8:53a Assoc,pc Pamella, ACCOUNT SERVICES ASSOCIATE vomiting, Hospitalists unspecified R10.9 Unspecified abdominal pain [...] Nausea with vomiting, unspecified Rosa M Shortle, ACCOUNT SERVICES ASSOCIATE 12/07/2018 R11.2 Nausea with vomiting, unspecified Christiano Painting MD 12/07/2018 R10.9 Unspecified abdominal pain Rosa M Shortle, ACCOUNT SERVICES ASSOCIATE 12/07/2018 R94.5 Abnormal results of liver function studies Christiano Painting MD 12/07/2018 R33.9 Retention of urine, unspecified Rosa M Shortle, ACCOUNT SERVICES ASSOCIATE 12/07/2018 K31.84 Gastroparesis Christiano Painting MD 12/07/2018 R94.5 Abnormal results of liver function studies Rosa M Shortle , ACCOUNT SERVICES ASSOCIATE 12/06/2018 R33.9 Retention of urine, unspecified Rosa M Shortle, ACCOUNT SERVICES ASSOCIATE 12/06/2018 R94.5 Abnormal results of liver function studies Rosa M Shortle , ACCOUNT SERVICES ASSOCIATE 12/06/2018 R11.2 Nausea with vomiting, unspecified Christiano Painting MD 12/06/2018 R11.2 Nausea with vomiting, unspecified Rosa M Shortle, ACCOUNT SERVICES ASSOCIATE 12/06/2018 R94.5 Abnormal results of liver function studies Christiano Painting MD 12/06/2018 R10.11 Right upper quadrant pain Christiano Painting MD 12/05/2018 R11.2 Nausea with vomiting, unspecified Rosa M Shortle, ACCOUNT SERVICES ASSOCIATE 12/05/2018 K31.84 Gastroparesis Christiano Painting MD 12/05/2018 G89.4 Chronic pain syndrome Rosa M Shortle, ACCOUNT SERVICES ASSOCIATE 12/05/2018 R11.2 Nausea with vomiting, unspecified Christiano Painting MD 12/04/2018 R11.2 Nausea with vomiting, unspecified Carol [place], ACCOUNT SERVICES ASSOCIATE 12/04/2018 R10.9 Unspecified abdominal pain Carol Can, ACCOUNT SERVICES ASSOCIATE 12/04/2018 G89.4 Chronic pain syndrome Carol Can, DIONISIO Plan of Treatment Future Appointment(s):01/15/2019 1:40 pm - Ellis Garcia MD at [facility]04/02/2019 9:00 am - Sanket Cortes M.D. at [facility]01/11/2019 - Betsy Lazo, Z87.892 Personal history of anaphylaxisNew Medication:Epipen 2-Arslan 0.3 mg/0.3ML - as vvzefuY00.4 Chronic pain ybnuoxllC02.00 Constipation, unspecifiedNew Medication:Miralax 3350 NF - twice a day as neededLactulose 10 GM/15ML - take 10 g three times daily as needed for constipation Functional Status Description No Information Available Mental Status Description No Information Available Referrals Refer to Dr Reason for Referral Status Appt Date Yahir Vance, PHD nonepileptic seizures Created [address] [place] [address] [phone] Adeline Robert MD Sent [address] [facility], [place] [address] [phone] Lavonne Howell MD Sent 01/15/[address] [place] [address] [phone] Ramsey Nelson Sent [address] [facility] [address] [place], [place] [id number] [phone] Cliff Garcia MD Sent [address] [place] [address] [phone] Petey Duong M.D. Sent 04/02/2019 [address] [place] [id number] [phone] Steven Keith MD Received Partial 12/29/2018 [address] [place], [place] [address] [phone] Sarkis Jones MD Sent [address] [facility] [address] [place], [place] [id number] [phone] Sharron Garcia MD Received Partial [address] [facility] [address] [place] [address] [phone] Yahir Vance, PHD Sent [address] [place], [place] [address] [phone] Andrew Higgins MD Sent [address] [place] [address] [phone]
[2019-01-26 18:43] VITALS: BP 100/65
--- NOTE | 2019-01-26 18:52 | UC ---
Minor Trauma HPI - HPI Summary HPI Summary: Patient is a 33yo female with multiple chronic diseases including sergio-danlos presenting with tailbone pain and bilateral anterior rib pain since last night when she tripped on a blanket, hit her ribs on a table, and then fell backwards onto her tailbone. Patient states ice and her daily oxycodone that she takes for sergio danlos pain "have not even touched her current pain. States she also took Tylenol without relief. Complains of pain with deep breaths. Denies shortness of breath at rest. - History of Current Complaint Chief Complaint: UCGeneralIllness Stated Complaint: INJURY TAILBONE/PELVIS/RIBS Hx Obtained From: Patient Onset/Duration: Sudden Onset Severity Currently: Severe Pain Intensity: 9 - Allergies/Home Medications Allergies/Adverse Reactions: Allergies Allergy/AdvReac Type Severity Reaction Status Date / Time peanut Allergy Severe aniphylaxis Verified 01/26/19 18:43 tree nut Allergy Severe anaphylaxis Verified 01/26/19 18:43 pineapple Allergy Intermediate Hives Verified 01/26/19 18:43 amoxicillin Allergy Unknown Verified 01/26/19 18:43 Reaction Details ceftriaxone Allergy Hives Verified 01/26/19 18:43 ciprofloxacin Allergy Anaphylatic Verified 01/26/19 18:43 Shock egg Allergy Hives Verified 01/26/19 18:43 levofloxacin Allergy Anaphylatic Verified 01/26/19 18:43 Shock metoclopramide [From Reglan] Allergy Hives Verified 01/26/19 18:43 Penicillins Allergy Facial Verified 01/26/19 18:43 Redness/Flushing prednisone Allergy Anaphylatic Verified 01/26/19 18:43 Shock Home Medications: Home Medications Linaclotide (NF) [Linzess (NF)] 290 mcg PO DAILY 01/26/19 [History Confirmed ] PMH/Surg Hx/FS Hx/Imm Hx - Additional Past Medical History Additional PMH: Sergio-Danlos syndrome Cardiovascular History: Pacemaker/ICD - Surgical History Surgical History: Yes Surgery Procedure, Year, and Place: right shoulder x2. hysterectomy. right knee. right hip. right foot. appy. gallbladder. pacemaker. lap duodenaljujenoscopy - Social History Alcohol Use: None Substance Use Type: None Smoking Status (MU): Never Smoked Tobacco - Immunization History Most Recent Influenza Vaccination: 2004 Most Recent Pneumonia Vaccination: patient refuses, risks\\benefits explained. Review of Systems All Other Systems Reviewed And Are Negative: Yes Constitutional: Positive: Negative. Negative: Fever, Chills Skin: Positive: Bruising Respiratory: Positive: Negative. Negative: Shortness Of Breath, Cough Cardiovascular: Positive: Negative. Negative: Palpitations, Chest Pain Gastrointestinal: Positive: Negative. Negative: Vomiting, Nausea Neurovascular: Negative: Decreased Sensation Musculoskeletal: Positive: Arthralgia, Edema Neurological: Negative: Weakness, Paresthesia, Numbness Physical Exam Triage Information Reviewed: Yes Appearance: Well-Appearing, No Pain Distress, Well-Nourished Vital Signs: Initial Vital Signs Temp 98 F 01/26/19 18:35 Pulse 86 01/26/19 18:35 Resp 14 01/26/19 18:35 BP 100/65 01/26/19 18:35 Pulse Ox 100 01/26/19 18:35 Vital Signs Reviewed: Yes Eyes: Positive: Conjunctiva Clear ENT: Positive: Hearing grossly normal Neck exam: Normal Neck: Positive: Supple Respiratory Exam: Normal Respiratory: Positive: Lungs clear, Normal breath sounds, No respiratory distress. Negative: Crackles, Rhonchi, Stridor, Wheezing Cardiovascular Exam: Normal Cardiovascular: Positive: RRR. Negative: Tachycardia Musculoskeletal: Positive: Strength Intact, ROM Intact, No Edema, Other: - tenderness to palpation of tailbone and anterior bilateral ribs. no crepitus noted Neurological: Positive: Alert Skin: Positive: Other - faint ecchymosis noted over left anterior ribs Diagnostics - Radiology bilateral ribs Radiology Interpretation Completed By: ED Physician Summary of Radiographic Findings: possible rib fx sacrum/coccyx Radiology Interpretation Completed By: ED Physician Summary of Radiographic Findings: no fx Minor Trauma Course/Dx - Course Course Of Treatment: Discussed no definitive fractures noted in initial read by myself and Dr. Tomas. Informed her final read will be obtained tomorrow she'll be notified with any abnormalities. Instructed her to ice the areas a few times daily. She may continue to continue with Tylenol and her daily oxycodone for pain relief. Educated her on importance of taking deep breaths often and coughing if she needs to to prevent pneumonia. Dispense incentive spirometer home with the patient to laboratory helper in breathing. Directed patient to follow up with PCP and pain management doctor if needed. Patient voiced understanding and agreed to the treatment plan. - Differential Dx/Diagnosis Provider Diagnosis: Bilateral contusion of ribs, Contusion of coccyx Discharge ED - Sign-Out/Discharge Documenting (check all that apply): Patient Departure All imaging exams completed and their final reports reviewed: No - Discharge Plan Condition: Stable Disposition: HOME Patient Education Materials: Coccyx Injury (ED), Rib Contusion (ED) Referrals: Franklin Hermosillo MD [Medical Doctor] - If Needed Betsy Lazo DO [Primary Care Provider] - If Needed Additional Instructions: As discussed, x-rays were read by the provider who treated you tonight. No definitive fractures were noted. The official report will be obtained tomorrow morning and will be notified with any abnormalities. He may continue to ice and take your daily oxycodone for pain relief. It is important that you take deep breaths often and cough if you need to cough. This will help prevent pneumonia from occurring. Use the incentive spirometer to help with breathing. Follow up with your PCP or pain management doctor if your pain does not begin to resolve. - Billing Disposition and Condition Condition: STABLE Disposition: Home
--- NOTE | 2019-01-27 11:48 | ED ---
Progress - Progress Note Progress Note: Final xray report reviewed: No fractures identified by radiologist. Course/Dx - Diagnoses Provider Diagnoses: Bilateral contusion of ribs, Contusion of coccyx Discharge ED - Sign-Out/Discharge Documenting (check all that apply): Patient Departure All imaging exams completed and their final reports reviewed: Yes - Discharge Plan Condition: Stable Disposition: HOME Patient Education Materials: Coccyx Injury (ED), Rib Contusion (ED) Referrals: Franklin Hermosillo MD [Medical Doctor] - If Needed Betsy Lazo DO [Primary Care Provider] - If Needed Additional Instructions: As discussed, x-rays were read by the provider who treated you tonight. No definitive fractures were noted. The official report will be obtained tomorrow morning and will be notified with any abnormalities. He may continue to ice and take your daily oxycodone for pain relief. It is important that you take deep breaths often and cough if you need to cough. This will help prevent pneumonia from occurring. Use the incentive spirometer to help with breathing. Follow up with your PCP or pain management doctor if your pain does not begin to resolve. - Billing Disposition and Condition Condition: STABLE Disposition: Home
== END 2019-01-26 20:14 | disposition home or self-care (01) ==
LOC: UCCORT 18:27
DX: S20.212A Contusion of left front wall of thorax, initial encounter (principal); S20.211A Contusion of right front wall of thorax, initial encounter; S30.0XXA Contusion of lower back and pelvis, initial encounter; Z91.010 Allergy to peanuts; Z91.018 Allergy to other foods; Z88.0 Allergy status to penicillin; Z88.1 Allergy status to other antibiotic agents; Z91.012 Allergy to eggs; Z88.8 Allergy status to other drugs, medicaments and biological substances; W01.0XXA Fall on same level from slipping, tripping and stumbling without subsequent striking against object, initial encounter; Y92.9 Unspecified place or not applicable
CPT/HCPCS: 71110; 72220; 99211; G0463

== ENCOUNTER 2019-03-18 16:04 | Emergency (ER) | payer OTHER ==
[2019-03-18 16:24] VITALS: BP 123/91
--- NOTE | 2019-03-18 16:32 | UC ---
General HPI - HPI Summary HPI Summary: Per bill of lading clerk: "Pt has hx of "non epileptic seizures". Today pt had a seizure a little before 1400 today. Pt was standing in her room. all she remembers falling back. pt not sure how long seizure lasted. C/o pain all over, headache. left shoulder pain. Pt is alert and oreinted " -here w/ her who provides history of non-epileptic seizures that were worked up extensively at [facility] that cannot be treated medically. reports frequent episodes like this and wouldn not ahev come in for just this. but here for left shoulder dislocation w. h/o ehelrs dorothy -reortedly tiffanihy were told not to go to the ER for these episodes. no foaming at mouth. no incontinence, did not bite her tongue. unwitnessed. she deoes not recall if she had LOC. he says "felisha yes, felisha no". he reports it tokk 2-5 mins for her to arouse again. hit the back of her rt side of head. no lac. -unable to move her left arm at all. + numbing.tingling into fingers and weakness in left arm. -her uncle is an atheltic obedience trainer and came over recommending eval for dislocated shoulder. he drove them here. -has had several dislocations rt shoulder w/ 2 surgeries. has had several dislocations. never had dislocation or surgery on left arm. - History of Current Complaint Chief Complaint: UCHeadInjury Stated Complaint: POST SEIZURE, LEFT SHOULDER INJURY, HEAD INJURY Time Seen by Provider: 03/18/19 16:29 Pain Intensity: 10 - Allergy/Home Medications Allergies/Adverse Reactions: Allergies Allergy/AdvReac Type Severity Reaction Status Date / Time peanut Allergy Severe aniphylaxis Verified 03/18/19 16:12 tree nut Allergy Severe anaphylaxis Verified 03/18/19 16:12 pineapple Allergy Intermediate Hives Verified 03/18/19 16:12 NSAIDS (Non-Steroidal Allergy Unknown hx of Verified 03/18/19 16:12 Anti-Inflamma gastric ulcers Sulfa (Sulfonamide Allergy Unknown hives , Verified 03/18/19 16:12 Antibiotics) diarrhea amoxicillin Allergy Unknown Verified 03/18/19 16:12 Reaction Details ceftriaxone Allergy Hives Verified 03/18/19 16:12 ciprofloxacin Allergy Anaphylatic Verified 03/18/19 16:12 Shock egg Allergy Hives Verified 03/18/19 16:12 levofloxacin Allergy Anaphylatic Verified 03/18/19 16:12 Shock metoclopramide [From Reglan] Allergy Hives Verified 03/18/19 16:12 Penicillins Allergy Facial Verified 03/18/19 16:12 Redness/Flushing prednisone Allergy Anaphylatic Verified 03/18/19 16:12 Shock Home Medications: Home Medications Butalb/Acetamin/Caff TAB* [Fioricet TAB*] 1 tab PO Q6H PRN 03/18/19 [History Confirmed 03/18/19] PMH/Surg Hx/FS Hx/Imm Hx Previously Healthy: No Cardiovascular History: Pacemaker/ICD Neurological History: Seizures - Surgical History Surgical History: Yes Surgery Procedure, Year, and Place: right shoulder x2. hysterectomy. right knee. right hip. right foot. appy. gallbladder. pacemaker. lap duodenaljujenoscopy. bladder pacemaker - Family History Known Family History: Positive: Cardiac Disease - Social History Lives: With Family Alcohol Use: None Substance Use Type: None Smoking Status (MU): Never Smoked Tobacco - Immunization History Most Recent Influenza Vaccination: 2004 Most Recent Pneumonia Vaccination: patient refuses, risks\\benefits explained. Review of Systems All Other Systems Reviewed And Are Negative: Yes Constitutional: Positive: Fatigue Skin: Negative: Negative, Rash Eyes: Positive: Negative ENT: Positive: Negative Respiratory: Positive: Negative. Negative: Shortness Of Breath, Cough Cardiovascular: Positive: Negative. Negative: Palpitations, Chest Pain Gastrointestinal: Positive: Negative Genitourinary: Positive: Negative Motor: Positive: Decreased ROM, Weakness Neurovascular: Positive: Decreased Sensation Musculoskeletal: Positive: Decreased ROM Neurological: Positive: Weakness, Numbness Psychological: Positive: Negative Is Patient Immunocompromised?: No Physical Exam Triage Information Reviewed: Yes Appearance: Ill-Appearing, Other: - difficulty focusing/concentraition. poor attention. unable to keep gaze. Vital Signs: Initial Vital Signs Temp 97.3 F 03/18/19 16:16 Pulse 105 03/18/19 16:16 Resp 16 03/18/19 16:16 BP 123/91 03/18/19 16:16 Pulse Ox 98 03/18/19 16:16 Vital Signs Reviewed: Yes Eye Exam: Normal Eyes: Negative: Conjunctiva Clear ENT: Positive: Pharynx normal, Uvula midline Neck exam: Normal Neck: Positive: Supple, Nontender, No Lymphadenopathy Respiratory Exam: Normal Respiratory: Positive: Chest non-tender, Lungs clear, Normal breath sounds, No respiratory distress, No accessory muscle use. Negative: Crackles, Rhonchi, Stridor, Wheezing Cardiovascular Exam: Normal Cardiovascular: Positive: RRR, Other: - scars on chest, pacemaker evident sub- cut Abdominal Exam: Normal Abdomen Description: Positive: Nontender, Soft Musculoskeletal: Positive: Other: - left shoulder with anterior deformity of left shoulder compared to right. she has difficulty takeing sleeve out of left arm, unable to extend elbow. elbow is in sling. unable to felx or extedn or lift. + tenderness w/ ? bulge in left bicep area. sensation in fingers intact o LT. Cr brisk. + 2 radial b/l. right shoulder NT, FROM. Course/Dx - Course Course Of Treatment: reported non-epilectic sz today at 4 pm that they are not concerned about. has appt to est w/ local neurologit on apr 02. reports full w/u at [facility] and they moved here recently. they refyse to go to ER for dante seizure adn states that she never should ahev said anything about the sz bc this is always what happens (referring to ER recommendation). -left shoulder appears to have anterior disolcoation in pt w/ ana danlos syndrome. they agree to go to ER for this, prefer [facility]. [facility] closest. recommend ambulance bc sz but they refuse and have signed AMA form. they report that she would sign AMA form for ER recommendation if it wasnt for the shoulder. -Uncle is drivbving them to the ER -will not do xrays here bc they will be repeated in ER and she is insignfiicant pain. attempt to reduce radiatione exposure. -s/w Dari Aguilar at [facility] who accepts pt. - Differential Dx - Multi-Symptom Differential Diagnoses: Other - seizure, left shoulder dislocation - Diagnoses Provider Diagnosis: Seizure, Left shoulder pain Discharge ED - Sign-Out/Discharge Documenting (check all that apply): Patient Departure All imaging exams completed and their final reports reviewed: No Studies - Discharge Plan Condition: Guarded Disposition: TRANS HIGHER LVL OF CARE FAC Referrals: Betsy Lazo DO [Primary Care Provider] - Additional Instructions: Go direcvtly to the ER. Do not stop anywhere on the way to [facility] ER - Billing Disposition and Condition Condition: GUARDED Disposition: Trans Higher Lvl of Care Fac
--- OUTSIDE RECORDS SUMMARY | 2019-03-18 17:00 | XMS REPORT | Continuity of Care Document ---
:1985 External Reference #:[id number] Author Name Azul Trujillo M.D. Address [address] [place] [address] Care Team Providers Name Role Phone Betsy Lazo MD Care Team Information Pre Sales Network Engineer [phone] Cherelle Duarte DO - Emergency Medicine Care Team Information Pre Sales Network Engineer Problems Active Problems Provider Date Neurogenic dysfunction of the urinary bladder Azul Trujillo M.D. Onset: Social History Type Date Description Comments Sex Unknown Tobacco Use Start: Unknown Patient has never smoked Smoking Status Reviewed: 02/15/19 Patient has never smoked Allergies, Adverse Reactions, [...] Ordering Provider Date Clonazepam Unknown 1mg Tablets Ulopxafadc-Qmwtgao-V TK 2 CS PO Q 4 To 6 Unknown affeine H as Needed. MDD 6 50-325-40mg CS Capsules Amphetamine-Dextroam Unknown phetamine 20mg Tablets Zolpidem Tartrate take 1 tablet by Unknown 5mg mouth at bedtime if Tablets needed for Sleep maximum daily dose of 1 Ondansetron HCL TK 1 T PO bid PRF Unknown 8mg Nausea Tablets Gabapentin TK 3 CS PO tid Unknown 300mg Capsules Zanaflex 8 mg tablet 1 tablet Unknown 6mg Capsules by mouth tid Miralax take one package Unknown [id number] Packet with 10 oz of water every day Lactulose 15 milliliters by Unknown 20GM/30ML mouth twice a day as Solution needed History Medications Gentamicin Sulfate given once in office 2ml Azul Trujillo, 01/21/2019 - for in office Kun 01/22/2019 40mg/ml Solution procedure. given intramuscular - 80 mg Medications Administered in Office Medication SIG Qnty Indications Ordering Provider Date Injection Gentamicin To Azul Trujillo M.D. 01/21/2019 80MG/2ML Injection Immunizations Description No Information Available Vital Signs Date Vital Result Comment 02/19/2019 11:24am BP Systolic 142 mmHg BP Diastolic 91 mmHg Body Temperature 98.7 F Heart Rate 99 /min Respiratory Rate 16 /min Height 63 inches 5'3" Weight 124.00 lb BMI (Body Mass Index) 22.0 kg/m2 BSA (Body Surface Area) 1.58 m2 [place] body weight in kilograms 52 kg O2 % BldC Oximetry 99 % Pain Level 8 site of intersent 02/08/2019 11:29am BP Systolic 101 mmHg BP Diastolic 73 mmHg Body Temperature 98.8 F Heart Rate 85 /min Respiratory Rate 16 /min Height 63 inches 5'3" Weight 123.00 lb BMI (Body Mass Index) 21.8 kg/m2 BSA (Body Surface Area) 1.57 m2 [place] body weight in kilograms 52 kg O2 % BldC Oximetry 98 % Pain Level 8 pain all in the back near procedure site. Results Test Acquired Facility Test Result H/L Range Note Date Platelet # Bld 12/04/2018 N2N/CCD Import Platelet Count 307 155-360 Auto MCHC RBC 12/04/2018 N2N/CCD Import Mean Corpuscular 34.8 High 30.8-34.3 Auto-mCnc Hemoglobin Concent MCH RBC Qn Auto 12/04/2018 N2N/CCD Import Mean Corpuscular 31.6 25.9- 32.7 Hemoglobin MCV RBC Auto 12/04/2018 N2N/CCD Import Mean Corpuscular 90.8 80.9-99.0 Volume Hct VFr Bld 12/04/2018 N2N/CCD Import Hematocrit 39.4 36.0-46.1 Auto Hgb Bld-mCnc 12/04/2018 N2N/CCD Import Hemoglobin 13.7 11.6-15.8 RBC # Bld Auto 12/04/2018 N2N/CCD Import Red Blood Count 4.34 3.90-5.40 WBC # XXX Auto 12/04/2018 N2N/CCD Import White Blood Count 7.9 3.1-10.7 Alp SerPl-cCnc 12/04/2018 N2N/CCD Import Alkaline 100 45-117 Phosphatase Alt SerPl-cCnc 12/04/2018 N2N/CCD Import Alanine 57 12-78 Aminotransferase (Alt/SGPT) Ast SerPl-cCnc 12/04/2018 N2N/CCD Import Aspartate Amino 47 High 15-37 Transf (Ast/Sgot) Bilirub 12/04/2018 N2N/CCD Import Total Bilirubin 1.0 0.2-1.0 SerPl-mCnc Albumin/Glob 12/04/2018 N2N/CCD Import Albumin/Globulin 1.1 SerPl Ratio Globulin Ser 12/04/2018 N2N/CCD Import Globulin 3.6 1.9-4.3 Calc-mCnc Albumin 12/04/2018 N2N/CCD Import Albumin 4.0 3.4-5.0 SerPl-mCnc Prot SerPl-mCnc 12/04/2018 N2N/CCD Import Total Protein 7.6 6.4-8.2 Calcium 12/04/2018 N2N/CCD Import Calcium Level 9.1 8.5-10.1 SerPl-mCnc Lactate 12/04/2018 N2N/CCD Import Lactic Acid Level 1.0 0.4-1.9 SerPl-sCnc nRBC # Bld Auto 12/04/2018 N2N/CCD Import Nucleated RBC 0.00 Absolute Count (auto) Imm 12/04/2018 N2N/CCD Import Immature 0.03 Granulocytes # Granulocyte # Bld Auto (Auto) Basophils # Bld 12/04/2018 N2N/CCD Import Basophils # (Auto) 0.05 0.0- 0.1 Auto Eosinophil # 12/04/2018 N2N/CCD Import Eosinophils # 0.07 0.0-0.5 Bld Auto (Auto) Monocytes # Bld 12/04/2018 N2N/CCD Import Monocytes # (Auto) 0.53 0.3- 0.9 Auto Lymphocytes # 12/04/2018 N2N/CCD Import Lymphocytes # 1.47 1.0-4.0 Bld Auto (Auto) Neutrophils # 12/04/2018 N2N/CCD Import Neutrophils # 5.74 1.8-7.0 Bld Auto (Auto) nRBC/100 WBC 12/04/2018 N2N/CCD Import Nucleated Red 0.0 < 10/ 100 Bld Auto-Rto Blood Cells % WBC (auto) Imm 12/04/2018 N2N/CCD Import Immature 0.4 0.0-5.0 Granulocytes/le Granulocyte % uk NFr Bld Auto (Auto) Basophils/leuk 12/04/2018 N2N/CCD Import Basophils (%) 0.6 0.0-1.1 NFr Bld Auto (Auto) Eosinophil/leuk 12/04/2018 N2N/CCD Import Eosinophils (%) 0.9 0.0-6.6 NFr Bld Auto (Auto) Monocytes/leuk 12/04/2018 N2N/CCD Import Monocytes (%) 6.7 4.3-13.2 NFr Bld Auto (Auto) Lymphocytes/anuel 12/04/2018 N2N/CCD Import Lymphocytes (%) 18.6 Low 20.0- 42.0 k NFr Bld Auto (Auto) Neutrophils/anuel 12/04/2018 N2N/CCD Import Neutrophils (%) 72.8 40.4- 72.8 k NFr Bld Auto (Auto) PMV Bld Auto 12/04/2018 N2N/CCD Import Mean Platelet 10.8 8.9-12.4 Volume RDW RBC 12/04/2018 N2N/CCD Import RDW Coefficient of 12.1 11.7-14.4 Auto-Rto Variation RDW RBC Auto 12/04/2018 N2N/CCD Import Red Cell 40.2 36-47 Distribution Width Bze Ur Ql Scn 12/04/2018 N2N/CCD Import Urine Cocaine Negative Screen Cannabinoids Ur 12/04/2018 N2N/CCD Import Urine Cannabinoids Negative Ql Scn Screen Benzodiaz Ur 12/04/2018 N2N/CCD Import Urine Negative Scn-mCnc Benzodiazepines Screen Barbiturates Ur 12/04/2018 N2N/CCD Import Urine Barbiturates Negative Ql Scn Screen Amphetamines Ur 12/04/2018 N2N/CCD Import Urine Amphetamines Negative Ql Scn Screen Leukocyte 12/04/2018 N2N/CCD Import Urine Leukocyte Negative Negative esterase Ur Ql Esterase Strip.auto Nitrite Ur Ql 12/04/2018 N2N/CCD Import Urine Nitrite Negative Negative Strip.auto Urobilinogen Ur 12/04/2018 N2N/CCD Import Urine Urobilinogen 0.2 0.2- 1.0 Strip-aCnc Prot Ur 12/04/2018 N2N/CCD Import Urine Protein Negative Negative Strip.auto-mCnc pH Ur 12/04/2018 N2N/CCD Import Urine pH 6.0 Low 6.5-7.5 Strip.auto Hgb Ur Ql 12/04/2018 N2N/CCD Import Urine Blood Negative 0-2 Strip.auto Sp Gr Ur 12/04/2018 N2N/CCD Import Urine Specific 1.020 1.010-1.03 Strip.auto [place] 0 Ketones Ur 12/04/2018 N2N/CCD Import Urine Ketones >=80 High Negative Strip.auto-mCnc Bilirub Ur Ql 12/04/2018 N2N/CCD Import Urine Bilirubin Negative Negative Strip.auto Glucose Ur 12/04/2018 N2N/CCD Import Urine Glucose (Ua) Negative Negative Strip.auto-mCnc Appearance Ur 12/04/2018 N2N/CCD Import Urine Clarity Clear Clear Color Ur 12/04/2018 N2N/CCD Import Urine Color Yellow Yellow Anion Gap 12/04/2018 N2N/CCD Import Anion Gap 8 8-16 SerPl-sCnc Co2 SerPl-sCnc 12/04/2018 N2N/CCD Import Carbon Dioxide 27 21-32 Level Chloride 12/04/2018 N2N/CCD Import Chloride Level 104 98-107 SerPl-sCnc Potassium 12/04/2018 N2N/CCD Import Potassium Level 3.1 Low 3.5-5.1 SerPl-sCnc Sodium 12/04/2018 N2N/CCD Import Sodium Level 139 136-145 SerPl-sCnc BUN/Creat SerPl 12/04/2018 N2N/CCD Import BUN/Creatinine 14.2 Ratio GFR/Bsa 12/04/2018 N2N/CCD Import Estimated GFR >60 >60 pred.black () SerPl MDRD-ArVRat GFR/Bsa 12/04/2018 N2N/CCD Import Estimated GFR >60 >60 pred.non black (Non- SerPl [place] MDRD-ArVRat Creat 12/04/2018 N2N/CCD Import Creatinine 0.7 0.6-1.3 SerPl-mCnc BUN SerPl-mCnc 12/04/2018 N2N/CCD Import Blood Urea 10 7-18 Nitrogen Glucose 12/04/2018 N2N/CCD Import Glucose Screen 80 74-106 SerPl-mCnc Bacteria Bld 12/04/2018 N2N/CCD Import Anaerobic Blood No Growth: Anaerobe Cult Culture Final Report Bacteria Bld 12/04/2018 N2N/CCD Import Aerobic Blood No Growth: Aerobe Cult Culture Final Report Lipase 12/04/2018 N2N/CCD Import Lipase 210 56-289 SerPl-cCnc NT-proBNP 12/04/2018 N2N/CCD Import Pro-B-Type 150.0 High <125 SerPl-mCnc Natriuretic Peptide Drug screen 12/04/2018 N2N/CCD Import Urine Drug Screen * comment Information Opiates Ur Ql 12/04/2018 N2N/CCD Import Urine Opiates Positive High Scn Screen Methadone Ur Ql 12/04/2018 N2N/CCD Import Urine Methadone Negative Scn Screen Procedures Date Code Description Status 02/08/2019 42889 Measurement Post Voiding Residual Urine By Completed Ultrasound,Non-Imaging 01/21/2019 24528 Theraputic Or Diagnostic Injection Completed 01/21/2019 08885 Cystoscopy Completed 01/21/2019 93042 emg studies of urethral sphincter, other than needle, any Completed tech 01/21/2019 83596 Cystometrogram complex w/ voiding and urethral pressure Completed studies 01/21/2019 06526 Bladder Catheterization Completed 01/05/2019 38493 Measurement Post Voiding Residual Urine By Completed Ultrasound,Non-Imaging 01/05/2019 27262 Measurement Post Voiding Residual Urine By Completed Ultrasound,Non-Imaging Medical Devices Description No Information Available Encounters Type Date Location Provider Dx Diagnosis Office Visit 02/19/2019 Urology Azul Trujillo N31.Saige Neuromuscular 11:00a M.DBecky dysfunction of bladder, unspecified Office Visit 02/08/2019 Urology Azul Trujillo N31.9 Neuromuscular 11:15a M.DBecky dysfunction of bladder, unspecified Office Visit 01/21/2019 Urology Azul Trujillo, R30.0 Dysuria 1:15p M.DBecky N31.9 Neuromuscular dysfunction of bladder, unspecified R39.14 Feeling of incomplete bladder emptying Office Visit 01/05/2019 1:15p UrologAzul Bonilla M.D. R34 Anuria and oliguria Assessments Date Code Description Provider 02/19/2019 N31.9 Neuromuscular dysfunction of bladder, Azul Trujillo M.D. unspecified 02/08/2019 N31.9 Neuromuscular dysfunction of bladder, Azul Trujillo M.D. unspecified 02/03/2019 N31.9 Neuromuscular dysfunction of bladder, Ramsey Nelson PA unspecified 01/21/2019 R30.0 Dysuria Azul Trujillo M.D. 01/21/2019 N31.9 Neuromuscular dysfunction of bladder, Azul Trujillo M.D. unspecified 01/21/2019 R39.14 Feeling of incomplete bladder emptying Azul Trujillo M.D. 01/05/2019 R34 Anuria and oliguria Azul Trujillo M.D. 12/04/2018 K56.600 Partial intestinal obstruction, John Vazquez MD,FACS unspecified as to cause 12/04/2018 Z87.19 Personal history of other diseases of the John Vazquez MD,FACS digestive system Plan of Treatment Future Appointment(s):05/24/2019 11:30 am - Ramsey Nelson PA at [id number] - Azul Trujillo M.D.N31.9 Neuromuscular dysfunction of bladder, unspecifiedComments:s/p Stage 2 Interstim . Pt is voiding with no evidence of retention, she can d/c catheterization. Pt to follow up with me in 3 months Functional Status Description No Information Available Mental Status Description No Information Available Referrals Description No Information Available
--- OUTSIDE RECORDS SUMMARY | 2019-03-18 17:00 | XMS REPORT | Continuity of Care Document ---
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 august 50-325-40mg Tablets cause sedation. No more than 5 a week Oxycodone-Acetamino 1 tab by mouth every 90tabs Alex Salter MD 01/14/2019 phen 4 hours as needed 5-325mg for pain Tablets Epipen 2-Arslan as [...] HCL 1 tablets by mouth 90tabs Betsy Lazo, every 6-8 hours as DO 25mg Tablets needed for anxiety Klonopin 1 by mouth four 120tabs G40.89 Alex Salter MD 1mg times a day as Tablets needed Zofran one twice a day as 60tabs Betsy Lazo, 8mg Tablets needed nausea DO Adderall 1 by mouth three x a 90tabs Alex Salter MD 20mg day as needed Tablets Ambien one by mouth at 30tabs Alex Salter MD 5mg Tablets bedtime as needed for sleep Gabapentin take 3 cs by mouth 270caps Alex Salter MD 300mg three times a day Capsules History Medications Fioricet take 1 by mouth 21caps Betsy Lazo, 01/22/2019 - 50-300-40mg every 8 hours as DO 01/23/2019 Capsules needed for pain. may cause sedation. Adbeuvdjfv-Ifdiwuj-C 1 tablet by mouth 30caps Betsy Lazo, 01/21/2019 - affeine every 4-6 hours DO 01/22/2019 50-325-40mg as needed. Capsules Ventolin HFA 2 every 4 hours 18gm R06.00 Ellis Garcia 01/20/2019 - as needed 02/19/2019 108(90Base) mcg/Act Aerosol Oxycodone-Acetaminop 1 tab by mouth 120tabs Betsy Lazo, 01/14/2019 - hen every 6 hours as DO 02/09/2019 5-325mg Tablets needed for pain Oxycodone-Acetaminop 1 tab by mouth 120tabs Betsy Lazo, 12/15/2018 - hen every 6 hours as DO 12/15/2018 5-325mg Tablets needed for pain Oxycodone HCL take one twice a 60tabs Betsy Lazo, 12/14/2018 - 10mg day as needed for DO 12/14/2018 Tablets pain Immunizations Description No Information Available Vital Signs Date Vital Result Comment 02/22/2019 11:41am Height 63 inches 5'3" Weight 120.00 lb Heart Rate 126 /min BP Systolic Sitting 128 mmHg BP Diastolic Sitting 90 mmHg Respiratory Rate 16 /min Body Temperature 99.8 F BMI (Body Mass Index) 21.3 kg/m2 02/09/2019 10:45am Height 63 inches 5'3" Weight 120.25 lb Heart Rate 127 /min BP Systolic 177 mmHg BP Diastolic 101 mmHg Body Temperature 99.7 F O2 % BldC Oximetry 96 % BMI (Body Mass Index) 21.3 kg/m2 Results Test Acquired Date Facility Test Result H/L Range Note CBC Auto 02/11/2019 [facility] White Blood 10.0 10^3/uL Normal 3.5-10.[address] [place] [address] [phone] Red Blood Count 3.29 10^6/uL Low 3.70-4.87 Hemoglobin 10.7 g/dL Low 12.0-16.0 Hematocrit 31 % Low 35-47 Mean Corpuscular Volume 95 fL Normal 80-97 Mean Corpuscular Hemoglobin 32 pg High 27-31 Mean Corpuscular HGB Conc 34 g/dL Normal 31-36 Red Cell Distribution Width 15 % Normal 10-15 Platelet Count 357 10^3/uL Normal 150-450 Mean Platelet Volume 8.3 fL Normal 7.4-10.4 Abs Neutrophils 4.8 10^3/uL Normal 1.5-7.7 Abs Lymphocytes 3.7 10^3/uL Normal 1.0-4.8 Abs Monocytes 1.0 10^3/uL High 0-0.8 Abs Eosinophils 0.4 10^3/uL Normal 0-0.6 Abs Basophils 0.1 10^3/uL Normal 0-0.2 Abs Nucleated RBC 0.0 10^3/uL Granulocyte % 47.6 % Lymphocyte % 37.2 % Monocyte % 10.0 % Eosinophil % 4.4 % Basophil % 0.8 % Nucleated Red Blood Cells % 0.1 Laboratory test 02/11/2019 [facility] C Reactive < 1.00 Normal <8.[address] Protein mg/[place] [address] [phone] Lyme Screen W/ Reflex To WB Negative Negative Blood Culture SEE RESULT BELOW 1 Urinalysis Profile 02/09/2019 [facility] Urine Color Yellow [address] [place], [place] [id number] [phone] Urine Appearance Clear Urine Specific [place] 1.028 Normal 1.010-1.030 Urine pH 5.0 Normal 5-9 Urine Urobilinogen Negative Negative Urine Ketones Trace Abnormal Negative Urine Protein Negative Negative Urine Leukocytes Negative Negative Urine Blood Negative Negative Urine Nitrite Negative Negative Urine Bilirubin Negative Negative Urine Glucose Negative Negative Urine Culture And 02/09/2019 [facility] Urine SEE RESULT [address] [place] [address] [phone] Comp Metabolic 01/20/2019 [facility] Sodium 138 mmol/L Normal 135-[address] [place] [address] [phone] Potassium 3.3 mmol/L Low 3.5-5.0 Chloride 102 [...] Egfr Non- 86.1 >60 Egfr 104.2 >60 3 Laboratory test 01/20/2019 [facility] C Reactive 1.79 mg/L Normal <8.[address] [place] [address] [phone] CBC Auto Diff 01/20/2019 [facility] White Blood 7.8 Normal 3.5 -10.[address] Count 10^3/[place] [address] [phone] Red Blood Count 3.76 10^6/uL Normal 3.70-4.87 [...] % Nucleated Red Blood Cells % 0.0 Laboratory test 01/20/2019 [facility] Erythrocyte Sed 6 mm/Hr Normal 0-[address] [place] [address] [phone] Comp Metabolic 12/21/2018 [facility] Sodium 141 Normal 135- [address] mmol/[place] [address] [phone] Potassium 3.5 mmol/L Normal 3.5-5.0 Chloride 105 [...] Egfr Non- 104.5 >60 Egfr 126.4 >60 4 Laboratory test 12/21/2018 [facility] Magnesium 1.7 mg/dL Low 1.9-2.[address] [place] [address] [phone] 1 SEE RESULT BELOW Name: JOHNNA EISENBERG : [address]: Alex Salter MD Acct: [id number] Unit: [id number] AGE: 33 Location: INF Re02/11/19 SEX: F Status: REG REF SPEC: [id number] TERENCE: 02/11/19-161 [facility] DR: Alex Salter MD REQ: [id number] RECD: 02/11/19 STATUS:PALLAVI RUDD DR: Betsy Lazo DO _ SOURCE: BLOOD,VENO SPDESC: ORDERED: Blood Cult COMMENTS: DRAWN FROM PORT. Procedure Result Reported Site Aerobic Culture Bottle Final 02/16/19- 1637 ML No Growth Day 5 Anaerobic Culture Bottle Final 02/16/19- 1637 ML No Growth Day 5 * ML - Main Lab . END OF REPORT DEPARTMENT OF PATHOLOGY, [address] [place] [address] Prakash Wall M.D. Director [facility] # [id number] 2 SEE RESULT BELOW Name: JOHNNA EISENBERG : [address]: Alex Salter MD Acct: [id number] Unit: [id number] AGE: 33 Location: [facility] Re02/09/19 SEX: F Status: REG REF SPEC: [id number] TERENCE: 02/09/19-[address]: Alex Salter MD REQ: [id number] RECD: 02/09/19 STATUS:COMP _ SOURCE: URINE [facility]: ORDERED: Urine Culture COMMENTS: [id number] Urine Source: Random Procedure Result Reported Site Urine Culture Final 02/10/19- 1234 ML No Growth (<1,000 CFU/mL) * ML - Main Lab . END OF REPORT DEPARTMENT OF PATHOLOGY, [address] [place] [address] Prakash Wall M.D. Director [facility] # [id number] 3 Because ethnic data is not always readily [...] 15-29 5 Kidney failure <15 (or dialysis) 4 Because ethnic data is not always readily [...] (or dialysis) Procedures Date Code Description Status 01/25/2019 92433 ECHO Transthoracic, Real-Time 2D With Doppler And Color Completed Flow 12/08/2018 35675 Endoscopy Upper GI Biopsy Completed Medical Devices Description No Information Available Encounters Type Date Location Provider Dx Diagnosis Office Visit 01/20/2019 Pulmonology And Ellis Garcia MD R06.00 Dyspnea, 8:30a [facility] Services Of unspecified Automotive Professional R91.8 Other nonspecific abnormal finding of lung field Office Visit 12/14/2018 10:20a [employer] Internal Betsy 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 Britt R10.9 Unspecified Assoc,pc O'cortney, PA-C abdominal pain Hospitalists K31.84 Gastroparesis G90.8 Other disorders of autonomic nervous system Office Visit 12/08/2018 9:03a [facility] Britt R11.2 Nausea with Assoc,pc O'cortney, PA-C vomiting, Hospitalists unspecified R94.5 Abnormal results of liver function studies R33.9 Retention of urine, unspecified Office Visit 12/08/2018 Surgical Petey Araujo R10.84 Generalized 7:00a [facility] Matthew Perales PA abdominal pain Office Visit 12/07/2018 [facility] R11.2 Nausea with 8:55a Assoc,pc Shortle, SECURITY SUPERVISOR vomiting, Hospitalists unspecified R10.9 Unspecified abdominal pain R33.9 Retention of urine, unspecified R94.5 Abnormal results of liver function studies Office Visit 12/07/2018 7:00a Surgical Christiano S. R11.2 Nausea with Associates Of MD Mert vomiting, Automotive Professional unspecified R94.5 Abnormal results of liver function studies K31.84 Gastroparesis Office Visit 12/06/2018 8:54a [facility] R33.9 Retention of Assoc,pc Shortle, SECURITY SUPERVISOR urine, Hospitalists unspecified R94.5 Abnormal results of liver function studies R11.2 Nausea with vomiting, unspecified Office Visit 12/06/2018 7:00a Surgical Christiano S. R11.2 Nausea with Associates Of MD Mert vomiting, Automotive Professional unspecified R94.5 Abnormal results of liver function studies R10.11 Right upper quadrant pain Office Visit 12/05/2018 8:54a [facility] R11.2 Nausea with Assoc,pc Shortle, SECURITY SUPERVISOR vomiting, Hospitalists unspecified G89.4 Chronic pain syndrome Office Visit 12/05/2018 7:00a Surgical Christiano S. 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, unspecified Traveling ECHO 2 01/20/2019 R06.00 Dyspnea, unspecified Ellis Garcia MD 01/20/2019 R91.8 Other nonspecific abnormal finding of Ellis Garcia MD lung field 01/11/2019 Z87.892 Personal history of anaphylaxis Betsy Lazo, DO 01/11/2019 G89.4 Chronic pain syndrome Betsy Lazo, DO 01/11/2019 K59.00 Constipation, unspecified Betsy Lazo, DO 01/11/2019 R33.9 Retention of urine, unspecified Betsy Violet, DO 01/11/2019 I95.1 Orthostatic hypotension Betsy Lazo, DO 01/11/2019 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, unspecified Betsy Lazo, DO 12/14/2018 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, 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, 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 12/14/2018 G90.8 Other disorders of autonomic nervous Betsy Lazo, DO system 12/14/2018 K31.84 Gastroparesis Betsy Lazo, DO 12/14/2018 G40.89 Other seizures Betsy Lazo, DO 12/14/2018 G43.909 Migraine, unspecified, not Betsymaritza Lazo, DO intractable, without status migrainosus 12/09/2018 R10.9 Unspecified abdominal pain XIOMY LozanoC 12/09/2018 K31.84 Gastroparesis XIOMY LozanoC 12/09/2018 G90.8 Other disorders of autonomic nervous Britt Rodriguez PA-C system 12/08/2018 R10.11 Right upper quadrant pain Ramsey Teran MD 12/08/2018 R11.2 Nausea with vomiting, unspecified Britt Rodriguez PA-C 12/08/2018 A08.4 Viral intestinal infection, Ramsey Teran MD unspecified 12/08/2018 R10.84 Generalized abdominal pain Petey Perales, PA 12/08/2018 R11.2 Nausea with vomiting, unspecified Ramsey Teran MD 12/08/2018 R94.5 Abnormal results of liver function Britt Rodriguez PA-C studies 12/08/2018 R33.9 Retention of urine, unspecified Britt Rodriguez PA-C 12/07/2018 R11.2 Nausea with vomiting, unspecified Rosa M Shortmerissa, SECURITY SUPERVISOR 12/07/2018 R11.2 Nausea with vomiting, unspecified Christiano Painting MD 12/07/2018 R10.9 Unspecified abdominal pain Rosa M Brown, SECURITY SUPERVISOR 12/07/2018 R94.5 Abnormal results of liver function Christiano Painting MD studies 12/07/2018 R33.9 Retention of urine, unspecified Rosa M Shortle, SECURITY SUPERVISOR 12/07/2018 K31.84 Gastroparesis Christiano Painting MD 12/07/2018 R94.5 Abnormal results of liver function Rosa M Brown, SECURITY SUPERVISOR studies 12/06/2018 R33.9 Retention of urine, unspecified Rosa M Shortle, SECURITY SUPERVISOR 12/06/2018 R94.5 Abnormal results of liver function Rosa M Kevin, SECURITY SUPERVISOR studies 12/06/2018 R11.2 Nausea with vomiting, unspecified Christiano Painting MD 12/06/2018 R11.2 Nausea with vomiting, unspecified Rosa M Shortle, SECURITY SUPERVISOR 12/06/2018 R94.5 Abnormal results of liver function Christiano Painting MD studies 12/06/2018 R10.11 Right upper quadrant pain Christiano Painting MD 12/05/2018 R11.2 Nausea with vomiting, unspecified Rosa M Shortle, SECURITY SUPERVISOR 12/05/2018 K31.84 Gastroparesis Christiano Painting MD 12/05/2018 G89.4 Chronic pain syndrome Rosa M Brown, SECURITY SUPERVISOR 12/05/2018 R11.2 Nausea with vomiting, unspecified Christiano Painting MD 12/04/2018 R11.2 Nausea with vomiting, unspecified Carol Elon, SECURITY SUPERVISOR 12/04/2018 R10.9 Unspecified abdominal pain Carol Can, SECURITY SUPERVISOR 12/04/2018 G89.4 Chronic pain syndrome Carol Can NP Plan of Treatment Future Appointment(s):02/24/2019 10:20 am - Jenaro Ghotra MD at [facility] AT Bsxfixij59/27/2019 9:00 am - Sanket Cortes M.D. at [facility]/22/2019 - Ian Talley MD, FACSK31.84 Gastroparesis syndromeReferral :Alix Robledo NP, Family/NPFollow up:With your surgeon in [facility]:Keep a food log. Have gastric emptying study results sent to me. Feel free to call with any questions Functional Status Description No Information Available Mental Status Description No Information Available Referrals Refer to Reason for Referral Status Appt Date Alix Robledo NP Gastroparesis. Needs registered dietitian Created evaluation. [address] [facility] [address] [place] [address] [phone] Brice Eisenberg MD Sent 04/02/2019 [address] [place] [address] [phone] Yahir Vance, PHD nonepileptic seizures Sent [address] [place], [place] [address] [phone] Adeline Robert MD Sent 02/24/2019 [address] [facility], [place] [address] [phone] Lavonne Howell MD Sent 01/15/[address] [place] [address] [phone] Ramsey Nelson Closed 01/21/[address] [place] [address] [phone] Cliff Garcia MD Sent [address] [place] [address] [phone] Petey Duong M.D. Sent 04/02/[address] [place] [address] [place] [address] [phone] Steven Keith MD Received Partial 12/29/[address] [place] [address] [phone] Sarkis Jones MD Called referral office, they did not recieve Sent anything, hand faxed 01/[address] [place] [address] [phone] Sharron Garcia MD Received Partial [address] [place] [address] [phone] Yahir Vance, PHD Older referral, new one created 01/11 Sent [address] [place], [place] [address] [phone] Andrew Higgins MD Sent [address] [place], [place] [address] [phone]
--- OUTSIDE RECORDS SUMMARY | 2019-03-18 17:00 | XMS REPORT | Continuity of Care Document ---
:1985 External Reference #:[id number] Author Name Ramsey Nelson PA Address [address] [facility] [place] [address] Care Team Providers Name Role Phone Betsy Lazo MD Care Team Information Studio Model [phone] Cherelle Duarte DO - Emergency Medicine Care Team Information Studio Model Problems Active Problems Provider Date Neurogenic dysfunction of the urinary bladder Azul Trujillo M.D. Onset: Social History Type Date Description Comments Sex Unknown Tobacco Use Start: Unknown Patient has never smoked Smoking Status Reviewed: 02/03/19 Patient has never smoked Allergies, Adverse Reactions, [...] Ordering Provider Date Clonazepam Unknown 1mg Tablets Gvgeeoduoe-Gtdubiw-Q TK 2 CS PO Q 4 To [...] mouth twice a day as Solution needed Oxycodone HCL 1 tab by mouth every Unknown 5mg 6 hours as needed Capsules pain History Medications Gentamicin Sulfate given once in office 2ml Azul Trujillo, 01/21/2019 - for in office Kun 01/22/2019 40mg/ml Solution procedure. given intramuscular - 80 mg Medications Administered in Office Medication SIG Qnty Indications Ordering Provider Date Injection Gentamicin To Azul Trujillo M.D. 01/21/2019 80MG/2ML Injection Immunizations Description No Information Available Vital Signs Date Vital Result Comment 02/03/2019 9:32am BP Systolic 93 mmHg BP Diastolic 65 mmHg Body Temperature 97.5 F Heart Rate 98 /min Respiratory Rate 16 /min Height 63 inches 5'3" Weight 124.38 lb BMI (Body Mass Index) 22.0 kg/m2 BSA (Body Surface Area) 1.58 m2 [place] body weight in kilograms 52 kg O2 % BldC Oximetry 100 % Pain Level 9 Interstim surgery 01/21/2019 11:49am BP Systolic 94 mmHg BP Diastolic 67 mmHg Body Temperature 97.0 F Heart Rate 93 /min Respiratory Rate 16 /min Weight 118.00 lb O2 % BldC Oximetry 98 % Pain Level 0 Results Test Acquired Facility Test Result H/L [...] N2N/CCD Import Urine Specific 1.020 1.010-1.03 Strip.auto [place] 0 Ketones Ur 12/04/2018 N2N/CCD Import Urine [...] GFR >60 >60 pred.non black (Non- SerPl Portuguese MDRD-ArVRat Creat 12/04/2018 N2N/CCD Import Creatinine 0.7 [...] Scn Screen Procedures Date Code Description Status 01/21/2019 33357 Theraputic Or Diagnostic Injection Completed 01/21/2019 13524 Cystoscopy Completed 01/21/2019 08768 emg studies of urethral sphincter, other than needle, any Completed tech 01/21/2019 16985 Cystometrogram complex w/ voiding and urethral pressure Completed studies 01/21/2019 42953 Bladder Catheterization Completed 01/05/2019 00609 Measurement Post Voiding Residual Urine By Completed Ultrasound,Non-Imaging 01/05/2019 94810 Measurement Post Voiding Residual Urine By Completed Ultrasound,Non-Imaging Medical Devices Description No Information Available Encounters Type Date Location Provider Dx Diagnosis Office Visit 01/21/2019 1:15p Urology Azul Trujillo M.D. R30.0 Dysuria N31.9 Neuromuscular dysfunction of bladder, unspecified R39.14 Feeling of incomplete bladder emptying Office Visit 01/05/2019 1:15p Urology Azul Trujillo M.D. R34 Anuria and oliguria Assessments Date Code Description Provider 02/03/2019 N31.9 Neuromuscular dysfunction of bladder, Ramsey [...] MD,FACS digestive system Plan of Treatment Future Appointment(s):02/08/2019 11:15 am - Azul Trujillo M.D. at [email or web address] - Ramsey Nelson, PAN31.9 Neuromuscular dysfunction of bladder, unspecifiedComments:Patient reassured. Call for review. Keep follow-up is scheduled Functional Status Description No Information Available Mental Status Description No Information Available Referrals Description No Information Available
--- OUTSIDE RECORDS SUMMARY | 2019-03-18 17:00 | XMS REPORT | Continuity of Care Document ---
:1985 External Reference #:[id number] Author Name Alex Salter MD (transmitted by agent of provider Hetal Joya) Address [address] [place] [address] Care Team Providers Name Role Phone Betsy Lazo DO - Hospitalist Care Team Information Claim Specialist Problems Description No Information Available Social History Type Date Description Comments Sex Unknown ETOH Use Never used alcohol Tobacco Use Start: Unknown Patient has never smoked Recreational Drug Use Never Used Drugs Smoking Status Reviewed: 02/09/19 Patient has never smoked Exercise Type/Frequency Does [...] Date Provider Butalbital/Acetamin take 1 by mouth 21tabs Kwabena Barber 01/23/2019 ophen/Caffeine every 8 hours as Kun Xiong needed for pain. august 50-325-40mg Tablets cause sedation. Ventolin HFA 2 every 4 hours as 18gm R06.00 Ellis Garcia, 01/20/2019 needed 108(90Base) mcg/Act Aerosol Oxycodone-Acetamino 1 tab by mouth every 90tabs Alex Salter MD 01/14/2019 phen 4 hours as needed 5-325mg for pain Tablets Epipen 2-Arslan as needed 4units Z87.892 [facility], 01/11/2019 DO 0.3mg/0.3ML Solution Auto-Inject Miralax twice a day as 119gm K59.00 Betsy Lazo, 01/11/2019 3350NF needed DO Powder Lactulose take 10 g three 237ml K59.00 Betsyrandolph Lazo, 01/11/2019 10GM/15ML times daily as DO [...] Zofran one twice a day as 60tabs [facility]olph [facility], 8mg Tablets needed nausea DO Adderall 1 by mouth three x a 120tabs [facility]andolph [facility], 20mg day as needed DO Tablets Ambien one by mouth at 30tabs [facility], 5mg Tablets bedtime as needed DO for sleep Gabapentin take 3 cs by mouth 270caps Alex Salter MD 300mg three times a day Capsules History Medications Fioricet take 1 by mouth 21caps Betsy Lazo, 01/22/2019 - 50-300-40mg every 8 hours as DO 01/23/2019 Capsules needed for pain. may cause sedation. Kfawpepwga-Umzguyj-Lt 1 tablet by mouth 30caps Betsy Lazo, 2018 - ffeine every 4-6 hours as DO 01/22/2019 50-325-40mg needed. Capsules Oxycodone-Acetaminoph 1 tab by mouth 120tabs Betsy Lazo, 01/14/2019 - en every 6 hours as DO 02/09/2019 5-325mg Tablets needed for pain Oxycodone-Acetaminoph 1 tab by mouth 120tabs Betsy Lazo, 12/15/2018 - en every 6 hours as DO 12/15/2018 5-325mg Tablets needed for pain Oxycodone HCL take one twice a 60tabs Betsy Lazo, 12/14/2018 - 10mg day as needed for DO 12/14/2018 Tablets pain Immunizations Description No Information Available Vital Signs Date Vital Result Comment 02/09/2019 10:45am Height 63 inches 5'3" Weight 120.25 lb Heart Rate 127 /min BP Systolic 177 mmHg BP Diastolic 101 mmHg Body Temperature 99.7 F O2 % BldC Oximetry 96 % BMI (Body Mass Index) 21.3 kg/m2 01/20/2019 8:28am Height 63 inches 5'3" Weight 119.00 lb Heart Rate 84 /min BP Systolic Sitting 98 mmHg Lue regular cuff BP Diastolic Sitting 70 mmHg Lue regular cuff Respiratory Rate 16 /min O2 % BldC Oximetry 98 % BMI (Body Mass Index) 21.1 kg/m2 Neck Circumference in inches 12.5 Results Test Acquired Date Facility Test Result H/L Range Note Comp Metabolic 01/20/2019 [facility] Sodium 138 mmol/L Normal 135-145 Panel [address] [place] [address] [phone] Potassium 3.3 mmol/L Low 3.5-5.0 Chloride 102 [...] >60 Egfr 104.2 >60 1 Laboratory test 01/20/2019 [facility] C Reactive 1.79 mg/L Normal <8.[address] [place] [address] [phone] CBC Auto Diff 01/20/2019 [facility] White Blood 7.8 Normal 3.5 -10.[address] Count 10^3/[place] [address] [phone] Red Blood Count 3.76 10^6/uL Normal 3.70-4.87 [...] Blood Cells % 0.0 Laboratory test 01/20/2019 [facility] Erythrocyte Sed 6 mm/Hr Normal 0-[address] [place] [address] [phone] Comp Metabolic 12/21/2018 [facility] Sodium 141 Normal 135- [address] mmol/[place] [address] [phone] Potassium 3.5 mmol/L Normal 3.5-5.0 Chloride 105 [...] Egfr Non- 104.5 >60 Egfr 126.4 >60 2 Laboratory test 12/21/2018 [facility] Magnesium 1.7 mg/dL Low 1.9-2.[address] [place] [address] [phone] 1 Because ethnic data is not always [...] 15-29 5 Kidney failure <15 (or dialysis) 2 Because ethnic data is not always readily [...] dialysis) Procedures Date Code Description Status 01/25/2019 43411 ECHO Transthoracic, Real-Time 2D With Doppler And Color Completed Flow 12/08/2018 61448 Endoscopy Upper GI Biopsy Completed Medical Devices Description No Information Available Encounters Type Date Location Provider Dx Diagnosis Office Visit 01/20/2019 Pulmonology And Ellis Garcia MD R06.00 Dyspnea, 8:30a [facility] unspecified Vibrating Screen Operator R91.8 Other nonspecific abnormal finding of lung field Office Visit 12/14/2018 10:20a [facility] Internal Betsy 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, 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, not elsewhere classified G90.8 Other disorders of autonomic nervous system K31.84 Gastroparesis G40.89 Other seizures G43.909 Migraine, unsp, not intractable, without status migrainosus Office Visit 12/09/2018 9:03a [facility] Britt R10.9 Unspecified Assoc,buffy Rodriguez PA-C abdominal pain Hospitalists K31.84 Gastroparesis G90.8 Other disorders of autonomic nervous system Office Visit 12/08/2018 9:03a [facility] Britt R11.2 Nausea with Assoc,buffy Rodriguez PA-C vomiting, Hospitalists unspecified R94.5 Abnormal results of liver function studies R33.9 Retention of urine, unspecified Office Visit 12/08/2018 Surgical Petey Araujo R10.84 Generalized 7:00a [facility] MAIK Estrella abdominal pain Office Visit 12/07/2018 [facility] R11.2 Nausea with 8:55a Assoc,buffy Brown NP vomiting, Hospitalists unspecified R10.9 Unspecified abdominal pain R33.9 Retention of urine, unspecified R94.5 Abnormal results of liver function studies Office Visit 12/07/2018 7:00a Surgical Christiano Rodriguez R11.2 Nausea with Associates Of MD Mert vomiting, Vibrating Screen Operator unspecified R94.5 Abnormal results of liver function studies K31.84 Gastroparesis Office Visit 12/06/2018 8:54a [facility] R33.9 Retention of Assoc,pc Shortle, MANAGER [employer]AD[employer]ELOPMENT urine, Hospitalists unspecified R94.5 Abnormal results of liver function studies R11.2 Nausea with vomiting, unspecified Office Visit 12/06/2018 7:00a Surgical Christiano S. R11.2 Nausea with Associates Of MD Mert vomiting, Vibrating Screen Operator unspecified R94.5 Abnormal results of liver function studies R10.11 Right upper quadrant pain Office Visit 12/05/2018 8:54a [facility] R11.2 Nausea with Assoc,pc Shortle, MANAGER [employer] vomiting, Hospitalists unspecified G89.4 Chronic pain syndrome Office Visit 12/05/2018 7:00a Surgical Christiano S. 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, unspecified Alex Salter [...] 01/11/2019 Z87.892 Personal history of anaphylaxis Betsy Lazo DO 01/11/2019 G89.4 Chronic pain syndrome Betsy Senner, DO 01/11/2019 K59.00 Constipation, unspecified Betsy Senner, DO 01/11/2019 R33.9 Retention of urine, unspecified Betsy Senner, DO 01/11/2019 I95.1 Orthostatic hypotension Betsy Senner, DO 01/11/2019 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, unspecified Betsy Senner, DO 12/14/2018 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, 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, 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 12/14/2018 G90.8 Other disorders of autonomic nervous Betsy Moisescandice, DO system 12/14/2018 K31.84 Gastroparesis Betsy Moisesner, DO 12/14/2018 G40.89 Other seizures Betsy Violet, DO 12/14/2018 G43.909 Migraine, unspecified, 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, DO intractable, without status migrainosus 12/09/2018 R10.9 Unspecified abdominal pain Britt Rodriguez PA-C 12/09/2018 K31.84 Gastroparesis Britt Rodriguez PA-C 12/09/2018 G90.8 Other disorders of autonomic nervous Britt Rodriguez PA-C system 12/08/2018 R10.11 Right upper quadrant pain Ramsey Teran MD 12/08/2018 R11.2 Nausea with vomiting, unspecified Britt Rodriguez PA-C 12/08/2018 A08.4 Viral intestinal infection, Ramsey Teran MD unspecified 12/08/2018 R10.84 Generalized abdominal pain MAIK Venegas 12/08/2018 R11.2 Nausea with vomiting, unspecified Ramsey Teran MD 12/08/2018 R94.5 Abnormal results of liver function Britt Rodriguez PA-C studies 12/08/2018 R33.9 Retention of urine, unspecified Britt Rodriguez PA-C 12/07/2018 R11.2 Nausea with vomiting, unspecified Rosa M Brown, DIONISIO 12/07/2018 R11.2 Nausea with vomiting, unspecified Christiano Painting MD 12/07/2018 R10.9 Unspecified abdominal pain Rosa M Shortmerissa, MANAGER [employer] 12/07/2018 R94.5 Abnormal results of liver function Christiano Painting MD studies 12/07/2018 R33.9 Retention of urine, unspecified Rosa M Shortle, MANAGER [employer] 12/07/2018 K31.84 Gastroparesis Christiano Painting MD 12/07/2018 R94.5 Abnormal results of liver function Rosa M Shortle, MANAGER [employer] studies 12/06/2018 R33.9 Retention of urine, unspecified Rosa M Shortle, MANAGER [employer] 12/06/2018 R94.5 Abnormal results of liver function Rosa M Shortle, MANAGER [employer] studies 12/06/2018 R11.2 Nausea with vomiting, unspecified Christiano Painting MD 12/06/2018 R11.2 Nausea with vomiting, unspecified Rosa M Shortle, MANAGER [employer] 12/06/2018 R94.5 Abnormal results of liver function Christiano Painting MD studies 12/06/2018 R10.11 Right upper quadrant pain Christiano Painting MD 12/05/2018 R11.2 Nausea with vomiting, unspecified Rosa M Shortle, MANAGER [employer] 12/05/2018 K31.84 Gastroparesis Christiano Painting MD 12/05/2018 G89.4 Chronic pain syndrome Rosa Msue Brown, MANAGER [employer] 12/05/2018 R11.2 Nausea with vomiting, unspecified Christiano Painting MD 12/04/2018 R11.2 Nausea with vomiting, unspecified Carol Can, MANAGER [employer] 12/04/2018 R10.9 Unspecified abdominal pain Carol Can, MANAGER [employer] 12/04/2018 G89.4 Chronic pain syndrome Carol Can, DIONISIO Plan of Treatment Future Appointment(s):02/24/2019 10:20 am - Jenaro Ghotra MD at [facility] Dermatology AT Byrarjfk11/11/2019 9:45 am - Ian Talley MD, FACS at [facility]04/02/2019 9:00 am - Sanket Cortes M.D. at [facility] Ycyxlx4202/09/2019 - Alex Salter MD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, mkairncgmdtJ04.4 Chronic pain syndromeComments:Please sign a pain contract today and follow-up with Dr. Garcia. You must take the medications as prescribed - please call the office with any concerns. It is not okay to take more than prescribed amount without permission of the PRESCRIBING doctor and will have to stop prescribing if it happens again.R50.9 Fever, tsrspnpktelF43.0 Tachycardia, uyibmxrdhbuD00.1 Orthostatic hypotension Functional Status Description No Information Available Mental Status Description No Information Available Referrals Refer to Dr Reason for Referral Status Appt Date Brice Eisenberg MD Sent [address] [facility], [place] [place] [address] [phone] Yahir Vance, PHD nonepileptic seizures Sent [address] [place] [address] [phone] Adeline Robert MD Sent 02/24/2019 [address] [facility], [facility] [place] [address] [phone] Lavonne Howell MD Sent 01/15/2019 [address] [facility] [address] [place] [phone] [phone] Ramsey Nelson Closed 01/21/2019 [address] [facility] [address] [place] [address] [phone] Cliff Garcia MD Sent [address] [place], [place] [address] [phone] Petey Duong M.D. Sent 04/02/2019 [address] [facility] [place] [address] [phone] Steven Keith MD Received Partial 12/29/[address] [place], [place] [address] [phone] Sarkis Jones MD Called referral office, they did not recieve Sent anything, hand faxed 01/[address] [place], [place] [address] [phone] Sharron Garcia MD Received Partial [address] [place] [address] [phone] Yahir Vance, PHD Older referral, new one created 01/11 Sent [address] [place] [address] [phone] Andrew Higgins MD Sent [address] [place] [address] [phone]
--- OUTSIDE RECORDS SUMMARY | 2019-03-18 17:00 | XMS REPORT | Continuity of Care Document ---
:1985 External Reference #:[id number] Author Name Azul Trujillo M.D. Address [address] [facility] [address] [place] [address] Care Team Providers Name Role Phone Betsy Lazo MD Care Team Information Assistant Professor Of Drama [phone] Cherelle Duarte DO - Emergency Medicine Care Team Information Assistant Professor Of Drama [phone] Problems Active Problems Provider Date Neurogenic dysfunction of the urinary bladder Azul Trujillo M.D. Onset: Social History Type Date Description Comments Sex Unknown Tobacco Use Start: Unknown Patient has never smoked Smoking Status Reviewed: 02/05/19 Patient has never smoked Allergies, Adverse Reactions, [...] Ordering Provider Date Clonazepam Unknown 1mg Tablets Rfiussukph-Uncjjrf-J TK 2 CS PO Q 4 To [...] Azul Trujillo, 01/21/2019 - for in office Anish.Emy 01/22/2019 40mg/ml Solution procedure. given intramuscular - 80 mg Medications Administered in Office Medication SIG Qnty Indications Ordering Provider Date Injection Gentamicin To Azul Trujillo M.D. 01/21/2019 80MG/2ML Injection Immunizations Description No Information Available Vital Signs Date Vital Result Comment 02/08/2019 11:29am BP Systolic 101 mmHg BP Diastolic 73 mmHg Body Temperature 98.8 F Heart Rate 85 /min Respiratory Rate 16 /min Height 63 inches 5'3" Weight 123.00 lb BMI (Body Mass Index) 21.8 kg/m2 BSA (Body Surface Area) 1.57 m2 [place] body weight in kilograms 52 kg O2 % BldC Oximetry 98 % Pain Level 8 pain all in the back near procedure site. 02/03/2019 9:32am BP Systolic 93 mmHg BP Diastolic 65 mmHg Body Temperature 97.5 F Heart Rate 98 /min Respiratory Rate 16 /min Height 63 inches 5'3" Weight 124.38 lb BMI (Body Mass Index) 22.0 kg/m2 BSA (Body Surface Area) 1.58 m2 [place] body weight in kilograms 52 kg O2 % BldC Oximetry 100 % Pain Level 9 Interstim surgery Results Test Acquired Facility Test Result H/L [...] N2N/CCD Import Urine Specific 1.020 1.010-1.03 Strip.auto [place] 0 Ketones Ur 12/04/2018 N2N/CCD Import Urine [...] GFR >60 >60 pred.non black (Non- SerPl [place] MDRD-ArVRat Creat 12/04/2018 N2N/CCD Import Creatinine 0.7 [...] Screen Procedures Date Code Description Status 02/08/2019 91366 Measurement Post Voiding Residual Urine By Completed Ultrasound,Non-Imaging 01/21/2019 69740 Theraputic Or Diagnostic Injection Completed 01/21/2019 26911 Cystoscopy Completed 01/21/2019 35611 emg studies of urethral sphincter, other than needle, any Completed tech 01/21/2019 64437 Cystometrogram complex w/ voiding and urethral pressure Completed studies 01/21/2019 36554 Bladder Catheterization Completed 01/05/2019 21335 Measurement Post Voiding Residual Urine By Completed Ultrasound,Non-Imaging 01/05/2019 86152 Measurement Post Voiding Residual Urine By Completed Ultrasound,Non-Imaging Medical Devices Description No Information Available Encounters Type Date Location Provider Dx Diagnosis Office Visit 02/08/2019 Urology Azul Trujillo N31.9 Neuromuscular 11:15a MBeckyDBecky dysfunction of bladder, unspecified Office Visit 01/21/2019 Urology Azul Trujillo R30.0 Dysuria 1:15p M.Emy N31.9 Neuromuscular dysfunction of bladder, unspecified R39.14 Feeling of incomplete bladder emptying Office Visit 01/05/2019 1:15p Urology Azul Trujillo M.D. R34 Anuria and oliguria Assessments Date Code Description Provider 02/08/2019 N31.9 Neuromuscular dysfunction of bladder, Azul Trujillo M.D. unspecified 02/03/2019 N31.9 Neuromuscular dysfunction of bladder, Ramsey Nelson, PA unspecified 01/21/2019 R30.0 Dysuria Azul Trujillo [...] Vazquez MD,FACS digestive system Plan of Treatment 02/08/2019 - Azul Trujillo M.D.N31.9 Neuromuscular dysfunction of bladder, unspecifiedComments:Status post stage I InterStim placement with favorable response. Patient will be scheduled for stage II InterStim. I did discuss with her that given how thin she is she might feel the implant and this might give her pain if she sits on it as she does not have much of adipose tissue to serve as a cushion. Functional Status Description No Information Available Mental Status Description No Information Available Referrals Description No Information Available
--- OUTSIDE RECORDS SUMMARY | 2019-03-18 17:00 | XMS REPORT | Continuity of Care Document ---
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 Ambien one by mouth at 30tabs [facility], Betsy 5mg Tablets bedtime as needed D.O for sleep Adderall 1 by mouth three Unknown 20mg Tablets x a day as needed Zofran one twice a day 60tabs [facility], Betsy 8mg Tablets as needed nausea D.O Tizanidine HCL two by mouth Unknown 4mg every 8 hours as Capsules needed muscle spasms Klonopin 1 by mouth twice Unknown 1mg Tablets a day Hydroxyzine HCL 1 tablets by Unknown 25mg mouth every 6-8 Tablets hours as needed for anxiety History Medications Port Flush patient to have blood Steven Keith MD 01/15/2019 - 01/20 [place] [facility] [place] by port flush Immunizations Description No Information Available Vital Signs Date Vital Result Comment 12/29/2018 2:11pm Height 63 inches 5'3" Weight 112.00 lb BP Systolic 131 mmHg BP Diastolic 94 mmHg Heart Rate 120 /min BMI (Body Mass Index) 19.8 kg/m2 Results Test Date Facility Test Result H/L Range Note CBC Auto Diff 01/20/2019 [facility] White Blood Count 7.8 10^3/uL Normal 3.5- [...] Cells % 0.0 Comp Metabolic Panel 01/20/2019 [facility] Sodium 138 mmol/L Normal 135-145 Potassium 3.3 [...] 104.2 >60 1 Laboratory test finding 01/20/2019 [facility] Erythrocyte Sed Rate 6 mm/Hr Normal 0-19 [...] Auto CNT <pending> MPV <pending> Lymph% <pending> [place]% <pending> Neutrophil % <pending> Absolute Lymphocytes <pending> Absolute Monocytes <pending> Absolute Neutrophils <pending> CMP(!) 12/08/2018 [facility] Sodium(!) <pending> mEq/L 261-543 [address] [place] [address] [phone] Potassium(!) <pending> mEq/L 3.6-5.5 Chloride Serum/Plasma(!) <pending> [...] 12/08/2018 [facility] C-Reative <pending> <5.[address] [place], [place] [address] [phone] CBC W/Auto 12/07/2018 [facility] White Blood <pending> Differential(!) Count Ser Auto CNT RBC Red Blood Count <pending> Hemoglobin Blood <pending> Hematocrit <pending> MCV (Corpuscular Volume) <pending> MCH (Corpuscular Hemoglobin) <pending> MCHC (Corpuscular Hemog Conc) <pending> RDW <pending> Platelet Count Blood Auto CNT <pending> MPV <pending> Lymph% <pending> [place]% <pending> Neutrophil % <pending> Absolute Lymphocytes <pending> [...] Auto CNT <pending> MPV <pending> Lymph% <pending> [place]% <pending> Neutrophil % <pending> Absolute Lymphocytes <pending> [...] Auto CNT <pending> MPV <pending> Lymph% <pending> [place]% <pending> Neutrophil % <pending> Absolute Lymphocytes <pending> [...] pain Steven Keith MD Plan of Treatment No Information Available Functional Status Description No Information Available Mental Status Description No Information Available Referrals Description No Information Available
--- OUTSIDE RECORDS SUMMARY | 2019-03-18 17:00 | XMS REPORT | Continuity of Care Document ---
:1985 External Reference #:[id number] Author Name Alda Hall PA-C Address [address] [place] [address] Care Team Providers Name Role Phone Betsy Lazo D.O Care Team Information Hospitalist Physician [phone] Problems Active Problems Provider Date High enzyme level in serum Alda Hall PA-C Onset: 01/28/2019 Gastroparesis syndrome Alda Hall PA-C Onset: 01/28/2019 Loss of appetite Alda Hall PA-C Onset: [...] Patient has never smoked Smoking Status Reviewed: 01/28/19 Patient has never smoked Allergies, Adverse Reactions, Alerts Active Allergies Reaction Severity Comments Date Amoxicillin 12/29/2018 Penicillin 12/29/2018 Keflex 12/29/2018 Cipro 12/29/2018 Prednisone 12/29/2018 Sulfa 12/29/2018 Reglan 12/29/2018 IV Contrast 12/29/2018 Shellfish 12/29/2018 NSAIDS 12/29/2018 Levaquin 12/29/2018 Medications Active Medications SIG Qnty Indications Ordering Provider Date Port Flush Per patient to have Steven Keith, 01/20/2019 Protocol blood work done [place] [facility] [place] followed by [place] flush Gabapentin TK 3 CS PO tid Unknown 300mg Capsules Oxycodone HCL TK 1 T PO Q 6 H - Unknown 5mg MDD 4 TS Tablets Fiorinal 2 tablet by mouth 90caps Senner, Betsy 50-325-40mg every 4-6 hours D.O Capsules as needed. Ambien one by mouth at 30tabs Senner Betsy 5mg Tablets bedtime as needed D.O [...] Port Flush patient to have blood Steven Emy Keith MD 01/15/2019 - 01/20 work done at [facility] [place] [facility] followed by port flush Immunizations Description No Information Available Vital Signs Date Vital Result Comment 01/28/2019 1:14pm Height 63 inches 5'3" Weight 117.00 lb BMI (Body Mass Index) 20.7 kg/m2 12/29/2018 2:11pm Height 63 inches 5'3" Weight 112.00 lb BP Systolic 131 mmHg BP Diastolic 94 mmHg Heart Rate 120 /min BMI (Body Mass Index) 19.8 kg/m2 Results Test Acquired Date Facility Test Result H/L Range Note CBC Auto Diff 01/20/2019 [facility] [place] White Blood 7.8 10^3/uL Normal 3.5-10.8 Count Red Blood Count 3.76 10^6/uL Normal 3.70-4.87 [...] Cells % 0.0 Comp Metabolic Panel 01/20/2019 [facility] [place] Sodium 138 mmol/L Normal 135-145 Potassium 3.3 [...] Auto CNT <pending> MPV <pending> Lymph% <pending> [place]% <pending> Neutrophil % <pending> Absolute Lymphocytes <pending> Absolute Monocytes <pending> Absolute Neutrophils <pending> CMP(!) 12/08/2018 [facility] Sodium(!) <pending> mEq/L 109-635 [address] [place] [address] [phone] Potassium(!) <pending> mEq/L 3.6-5.5 Chloride Serum/Plasma(!) <pending> [...] 12/08/2018 [facility] C-Reative <pending> <5.[address] [place] [address] [phone] CBC W/Auto 12/07/2018 [facility] White Blood <pending> Differential(!) Count Ser Auto CNT RBC Red Blood Count <pending> Hemoglobin Blood <pending> Hematocrit <pending> MCV (Corpuscular Volume) <pending> MCH (Corpuscular Hemoglobin) <pending> MCHC (Corpuscular Hemog Conc) <pending> RDW <pending> Platelet Count Blood Auto CNT <pending> MPV <pending> Lymph% <pending> [place]% <pending> Neutrophil % <pending> Absolute Lymphocytes <pending> [...] Auto CNT <pending> MPV <pending> Lymph% <pending> [place]% <pending> Neutrophil % <pending> Absolute Lymphocytes <pending> [...] Auto CNT <pending> MPV <pending> Lymph% <pending> [place]% <pending> Neutrophil % <pending> Absolute Lymphocytes <pending> [...] Information Available Assessments Date Code Description Provider 01/28/2019 K31.84 Gastroparesis Alda Hall, PA-C 01/28/2019 K59.01 Slow transit constipation Alda Hall, PA-C 01/28/2019 R74.8 Abnormal levels of other serum enzymes Alda Hall , PA-C 12/29/2018 R11.0 Nausea Alda Hall, PA-C 12/29/2018 R10.84 Generalized abdominal pain Alda Hall, PA-C 12/29/2018 K59.01 Slow transit constipation Alda Hall, PA-C 12/29/2018 R74.0 Nonspecific elevation of levels of Alda Hall, PA -C transaminase and lactic acid dehydrogenase [LDH] 12/29/2018 R63.4 Abnormal weight loss Alda Hall, PA-C 12/29/2018 R63.0 Anorexia Alda Hall, PA-C 12/07/2018 R11.2 Nausea with vomiting, unspecified Steven Keith MD 12/06/2018 R11.2 Nausea with vomiting, unspecified tSeven Keith MD 12/06/2018 R10.9 Unspecified abdominal pain Steven Keith MD Plan of Treatment No Information Available Functional Status Description No Information Available Mental Status Description No Information Available Referrals Description No Information Available
== END 2019-03-18 17:15 | disposition short-term general hospital (02) ==
LOC: UCCORT 16:04
DX: R56.9 Unspecified convulsions (principal); R53.83 Other fatigue; R53.1 Weakness; M25.512 Pain in left shoulder; Z91.010 Allergy to peanuts; Z91.018 Allergy to other foods; Z88.6 Allergy status to analgesic agent; Z88.2 Allergy status to sulfonamides; Z88.0 Allergy status to penicillin; Z88.1 Allergy status to other antibiotic agents; Z88.8 Allergy status to other drugs, medicaments and biological substances; Z95.5 Presence of coronary angioplasty implant and graft